=== PATIENT | female | born 1945 | race Caucasian/White ===

== ENCOUNTER 2020-11-22 11:02 | Observation (INO) | payer OTHER ==
--- NOTE | 2020-11-22 11:57 | RAD REPORT ---
EXAM DESCRIPTION: RAD - Chest Single View - 11/22/2020 11:42 am CLINICAL HISTORY: CHEST PAIN COMPARISON: September 2012 TECHNIQUE: AP portable chest image was obtained 11/22/2020 11:42 am . FINDINGS: No focal lung parenchymal process. No failure or volume overload. Interstitial pattern mat ches comparison. Heart and vasculature are normal. No measurable pleural effusion and no pneumothorax . No acute bony abnormality seen. No acute aortic findings suspected. IMPRESSION: No acute cardiopulmonary process. No significant change from comparison study.
[2020-11-22 11:59] LABS: Absolute Lymphocytes (CBC) 1.6 K/uL (0.7-4.9); Basophils % 1.1 % (0-1.3); Hematocrit 43.1 % (36.0-45.0); Lymphocytes % 19.4 % (15.3-44.8); MPV 8.8 fL (7.6-11.3); RBC Red Blood Cell Count 4.86 M/uL (3.86-4.86)
[2020-11-22 12:04] LABS: Protime INR 0.95
[2020-11-22 12:08] LABS: ALT/SGPT 32 U/L (12-78); AST/SGOT 24 U/L (15-37); Albumin 3.8 g/dL (3.4-5.0); Alkaline Phosphatase 93 U/L (45-117); BUN Blood Urea Nitrogen 18 mg/dL (7-18); Bicarbonate 30 mmol/L (21-32); Bilirubin Direct 0.2 mg/dL (0-0.2); Bilirubin Total 0.6 mg/dL (0.2-1.0); Glucose Level 134 mg/dL (74-106); Magnesium 1.5 mg/dL (1.8-2.4); NT PRO-BNP 50 pg/mL (<450); Protein, Total 7.6 g/dL (6.4-8.2); Sodium Level 142 mmol/L (136-145); Troponin (Emerg Dept Use Only) < 0.02 ng/mL (0.0-0.045)
--- NOTE | 2020-11-22 12:52 | RAD REPORT ---
EXAM DESCRIPTION: CT - Chest For Pe Angio - 11/22/2020 12:40 pm CLINICAL HISTORY: sob COMPARISON: November 22, 2020 chest x-ray TECHNIQUE: Dynamically enhanced axial 3 mm thick images of the chest were obtained during administra tion of <100> mL Isovue 370 IV contrast. Coronal and oblique reconstruction images were generated and reviewed. Exam utilizes a protocol for optimal evaluation of pulmonary arterial tree. Maximum intensity projections 3D imaging was utilized All CT scans are performed using dose optimization technique as appropriate and may include automated exposure control or mA/KV adjustment according to patient size. FINDINGS: A pulmonary embolus is not seen. A thoracic aortic aneurysm is not noted. A pleural effusion is not seen. A pericardial effusion is not seen. Mild bilateral ground-glass opacities indicative of a mild alveolitis IMPRESSION: Negative for a pulmonary embolism. Mild bilateral ground-glass opacities indicative of a mild alveolitis
--- NOTE | 2020-11-22 17:52 | ER ---
Nurse's Notes [facility] Name: Carlene Padilla Age: 75 yrs Sex: Female : 1945 Arrival Date: 11/22/2020 Time: 11:03 Bed 19 Private MD: Trenton Jo T; Adalberto Cadena Diagnosis: Tachycardia, unspecified;Dyspnea;Respiratory failure, unspecified with hypoxia-88%;Tachypnea, not elsewhere classified Presentation: 11/22 11:10 Chief complaint: Patient states: i had a [address] francois i was having tw2 some pain in my right arm about a month ago, so i wrote that off, and my o2 sat was low in their office and he didn't like my ekg said it wasn't normal, and i have been having a rapid hr, we talked about rapid breathing and i do feel sob. Coronavirus screen: At this time, the client does not indicate any symptoms associated with coronavirus-19. Ebola Screen: Patient denies travel to an Ebola-affected area in the 21 days before illness onset. Initial Sepsis Screen: Does the patient meet any 2 criteria? HR > 90 bpm. No. Patient's initial sepsis screen is negative. Does the patient have a suspected source of infection? No. Patient's initial sepsis screen is negative. Risk Assessment: Do you want to hurt yourself or someone else? Patient reports no desire to harm self or others. Onset of symptoms was November 22, 2020. 11:10 Method Of Arrival: Ambulatory tw2 11:10 Acuity: ZOHRA 2 tw2 Triage Assessment: 11:14 General: Appears in no apparent distress. Behavior is calm, cooperative, appropriate tw2 for age. Pain: Denies pain. Historical: - Allergies: 11:14 codeine sulfate; tw2 11:14 Naprosyn; tw2 11:14 Compazine; tw2 - Home Meds: 11:14 losartan-hydrochlorothiazide 100-12.5 mg oral tab 1 tab once daily [Active]; tw2 12:48 levothyroxine 50 mcg tab 1 tab once daily [Active]; metformin 750 mg Oral Tb24 1 tab tw2 once daily [Active]; Symbicort 80-4.5 mcg/actuation inhalation HFAA 2 puffs 2 times per day [Active]; omeprazole 20 mg Oral cpDR 1 cap once daily [Active]; Vesicare 10 mg oral tab 1 tab once daily [Active]; escitalopram oxalate 20 mg oral tab 1 tab once daily [Active]; aspirin 81 mg Oral TbEC 1 tab once daily [Active]; simvastatin 40 mg Oral tab 1 tab once daily [Active]; Myrbetriq 25 mg oral Tb24 1 tab once daily [Active]; One-A-Day Womens Formula 18 mg iron-400 mcg-500 mg Ca oral tab [Active]; Lumigan 0.01 % ophthalmic drop [Active]; - PMHx: 12:48 Hyperlipidemia; Diabetes - NIDDM; Hypertension; tw2 - Immunization history:: Adult Immunizations. - Social history:: Smoking status: Patient denies any tobacco usage or history of. Screenin:50 Abuse screen: Denies threats or abuse. Nutritional screening: No deficits noted. tw2 Tuberculosis screening: No symptoms or risk factors identified. Fall Risk None identified. Assessment: 11:20 General: Appears in no apparent distress. comfortable, Behavior is calm, cooperative, rb3 Denies fever. Pain: Denies pain. Neuro: Level of Consciousness is awake, alert, obeys commands, Oriented to person, place, time, situation. Cardiovascular: Capillary refill < 3 seconds Patient's skin is warm and dry. Cardiovascular: Reports shortness of breath, increased heart rate. Respiratory: Reports shortness of breath at rest Airway is patent Respiratory effort is even, unlabored, Respiratory pattern is regular, symmetrical. GI: No signs and/or symptoms were reported involving the gastrointestinal system. : No deficits noted. Musculoskeletal: Range of motion: intact in all extremities. 12:19 Reassessment: Patient appears in no apparent distress at this time. No changes from rb3 previously documented assessment. 13:18 Reassessment: Patient appears in no apparent distress at this time. Patient and/or rb3 family updated on plan of care and expected duration. Pain level reassessed. Patient is alert, oriented x 3, equal unlabored respirations, skin warm/dry/pink. 13:42 Reassessment: Pt. reports that she forgot to tell Dr. Patel that she has been getting rb3 lightheaded when she stands up, it happened last night. I performed orthostatic blood pressures on her and notified Dr. Patel. 14:28 Reassessment: Patient appears in no apparent distress at this time. Patient and/or rb3 family updated on plan of care and expected duration. Pain level reassessed. Patient is alert, oriented x 3, equal unlabored respirations, skin warm/dry/pink. 15:14 Reassessment: Patient appears in no apparent distress at this time. No changes from rb3 previously documented assessment. 16:00 Reassessment: Patient appears in no apparent distress at this time. Patient and/or rb3 family updated on plan of care and expected duration. Pain level reassessed. Patient is alert, oriented x 3, equal unlabored respirations, skin warm/dry/pink. 16:42 Reassessment: Ambulated pt. on room air, P 92, 24, O2 sat was 90% while walking. When rb3 she returned to the room, O2 sat went back up to 93-94% RA, R 22, P 91 while sitting in the bed. 17:40 Reassessment: Patient appears in no apparent distress at this time. rb3 17:40 Reassessment: Patient and/or family updated on plan of care and expected duration. Pain rb3 level reassessed. Patient is alert, oriented x 3, equal unlabored respirations, skin warm/dry/pink. Respiratory: Denies shortness of breath. 18:39 Reassessment: Patient appears in no apparent distress at this time. No changes from rb3 previously documented assessment. 20:00 General: Appears in no apparent distress. comfortable, Behavior is calm, cooperative. sf Pain: Denies pain. Neuro: Level of Consciousness is awake, alert, obeys commands, Oriented to person, place, time, situation. Cardiovascular: Reports shortness of breath, Patient's skin is warm and dry. Respiratory: Reports shortness of breath Airway is patent Respiratory effort is even, unlabored, Respiratory pattern is regular, symmetrical. 20:03 Reassessment: Called Renetta in lab to add T4 and TSH orders. sf Vital Signs: 11:10 BP 127 / 110; Pulse 129; Resp 20; Temp 97.8; Pulse Ox 95% on R/A; Weight 71.67 kg (R); tw2 Height 5 ft. 4 in. (162.56 cm); 12:00 BP 129 / 80; Pulse 109; Resp 14; Pulse Ox 94% on R/A; rb3 13:37 BP 140 / 79 Supine; Pulse 108; Resp 15; Pulse Ox 90% ; rb3 13:39 BP 148 / 87 Sitting; Pulse 108; Resp 14; Pulse Ox 91% on R/A; rb3 13:42 BP 138 / 95 Standing; Pulse 114; Resp 15; Pulse Ox 88% ; rb3 14:30 BP 146 / 85; Pulse 99; Resp 22; Pulse Ox 91% on R/A; rb3 15:30 BP 145 / 84; Pulse 93; Resp 15; Pulse Ox 97% on 2 lpm NC; rb3 16:30 BP 150 / 92; Pulse 92; Resp 24; Pulse Ox 98% on 2 lpm NC; rb3 17:30 BP 137 / 84; Pulse 102; Resp 21; Pulse Ox 94% on R/A; rb3 19:00 BP 150 / 91; Pulse 95; Resp 18; Pulse Ox 91% ; Pain 10/10; sf 20:30 BP 152 / 86; Pulse 111; Resp 18; Pulse Ox 92% ; sf 11:10 Body Mass Index 27.12 (71.67 kg, 162.56 cm) tw2 11:10 "i took juani D for the congestion about 1 hour ago" tw2 14:30 Put the pt. on 2 L NC. rb3 17:30 pt. denies shortness of breath at this time rb3 ED Course: 11:03 Patient arrived in ED. as 11:04 Trenton Jo MD is Private Physician. as 11:04 Adalberto Cadena MD is Private Physician. as 11:13 Triage completed. tw2 11:14 Arm band placed on. tw2 11:15 Placed in gown. Bed in low position. Call light in reach. tw2 11:23 Karen Pérez, BRODERICK is Primary Nurse. rb3 11:25 Jose Elias Patel MD is Attending Physician. kdr 11:35 Missed attempt(s): 22 gauge in right forearm. antecubital area. kj1 11:35 Initial lab(s) drawn, by ED staff, sent to lab. kj1 11:42 XRAY Chest (1 view) In Process Unspecified. EDMS 12:13 Inserted saline lock: 22 gauge in left forearm, using aseptic technique. ,using aseptic rb3 technique. IV inserted by Gregory, Nurse Instructor. 12:40 CT Chest For PE Angio In Process Unspecified. EDMS 17:50 Charly Todd is Hospitalizing Provider. kdr 21:08 No provider procedures requiring assistance completed. Patient admitted, IV remains in sf place. Administered Medications: 17:20 Drug: Magnesium Sulfate 2 grams Route: IVPB; Infused Over: 2 hrs; Site: left forearm; rb3 21:04 Follow up: IV Status: Completed infusion; IV Intake: 100ml sf 21:04 Follow up: Response: No adverse reaction sf Intake: 21:04 IV: 100ml; Total: 100ml. sf Outcome: 17:52 Decision to Hospitalize by Provider. kdr 21:16 Admitted to Tele accompanied by tech, via wheelchair, room 423, with oxygen, Report sf called to BRODERICK Parson 21:16 Condition: stable 21:16 Instructed on the need for admit. 21:52 Patient left the ED. sf Signatures: Dispatcher [employer] EDMS Jose Elias Patel MD MD kdr Adenike Campos Tara, RN RN maegan2 Goldie Mcfarlane kj1 Karen Pérez, BRODERICK RN rb3 Cristi Cali RN RN sf Corrections: (The following items were deleted from the chart) 11:46 11:46 Initial lab(s) drawn, by ED staff, sent to lab. kj1 kj1 13:47 13:37 BP 140 / 79 Supine; Pulse 108bpm; Pulse Ox 90%; rb3 rb3 13:47 13:39 BP 148 / 87; Pulse 108bpm; Pulse Ox 91% RA; rb3 rb3 13:51 13:39 BP 148 / 87; Pulse 108bpm; Resp 14bpm; Pulse Ox 91% RA; rb3 rb3 13:51 13:42 BP 138 / 95; Pulse 114bpm; Resp 15bpm; Pulse Ox 88%; rb3 rb3 15:15 14:30 BP 146 / 85; Pulse 99bpm; Resp 22bpm; Pulse Ox 91% RA; rb3 rb3
--- NOTE | 2020-11-22 17:52 | EDPHYS ---
Physician Documentation [facility] Name: Carlene Padilla Age: 75 yrs Sex: Female : 1945 Arrival Date: 11/22/2020 Time: 11:03 Bed 19 Private MD: Trenton Jo T; Adalberto Cadena ED Physician Jose Elias Patel HPI: 11/22 17:58 This 75 yrs old Female presents to ER via Ambulatory with complaints of kdr abnormal ekg. 17:58 The patient presents with a history of irregular heart beat, heart racing. Context: The kdr symptoms occur at rest, with light activity, without known cause. Onset: The symptoms/episode began/occurred gradually, at an unknown time. Duration: The patient or guardian reports multiple episodes, that are intermittent, that wax and wane, with no pattern. Modifying factors: The symptoms are aggravated by light activity. Associated signs and symptoms: Pertinent positives: nausea, SOB, Hypoxia. Severity of symptoms: At their worst the symptoms were mild moderate today, in the emergency department the symptoms have improved mildly. The patient has experienced similar episodes in the past, multiple times, but today's symptoms are worse. The patient has been recently seen by a physician: sent from Dr. Hernandez office. Historical: - Allergies: 11:14 codeine sulfate; tw2 11:14 Naprosyn; tw2 11:14 Compazine; tw2 - Home Meds: 11:14 losartan-hydrochlorothiazide 100-12.5 mg oral tab 1 tab once daily [Active]; tw2 12:48 levothyroxine 50 mcg tab 1 tab once daily [Active]; metformin 750 mg Oral Tb24 1 tab tw2 once daily [Active]; Symbicort 80-4.5 mcg/actuation inhalation HFAA 2 puffs 2 times per day [Active]; omeprazole 20 mg Oral cpDR 1 cap once daily [Active]; Vesicare 10 mg oral tab 1 tab once daily [Active]; escitalopram oxalate 20 mg oral tab 1 tab once daily [Active]; aspirin 81 mg Oral TbEC 1 tab once daily [Active]; simvastatin 40 mg Oral tab 1 tab once daily [Active]; Myrbetriq 25 mg oral Tb24 1 tab once daily [Active]; One-A-Day Womens Formula 18 mg iron-400 mcg-500 mg Ca oral tab [Active]; Lumigan 0.01 % ophthalmic drop [Active]; - PMHx: 12:48 Hyperlipidemia; Diabetes - NIDDM; Hypertension; tw2 - Immunization history:: Adult Immunizations. - Social history:: Smoking status: Patient denies any tobacco usage or history of. ROS: 11/23 16:55 Constitutional: Negative for fever, chills, and weight loss, Eyes: Negative for injury, kdr pain, redness, and discharge, Neck: Negative for injury, pain, and swelling, Respiratory: Negative for shortness of breath, cough, wheezing, and pleuritic chest pain, Abdomen/GI: Negative for abdominal pain, nausea, vomiting, diarrhea, and constipation, Back: Negative for injury and pain, : Negative for injury, bleeding, discharge, and swelling, MS/Extremity: Negative for injury and deformity, Skin: Negative for injury, rash, and discoloration, Neuro: Negative for headache, weakness, numbness, tingling, and seizure activity. Psych: Negative for depression, anxiety, suicide ideation, homicidal ideation, and hallucinations, Allergy/Immunology: Negative for hives, rash, and allergies, Endocrine: Negative for neck swelling, polydipsia, polyuria, polyphagia, and marked weight changes, Hematologic/Lymphatic: Negative for swollen nodes, abnormal bleeding, and unusual bruising. Cardiovascular: Positive for chest pain, palpitations. Exam: 11/22 11:40 ECG was reviewed by the Attending Physician. kdr 11/23 16:55 Constitutional: This is a well developed, well nourished patient who is awake, alert, kdr and in no acute distress. Head/Face: Normocephalic, atraumatic. Neck: Trachea midline, no thyromegaly or masses palpated, and no cervical lymphadenopathy. Supple, full range of motion without nuchal rigidity, or vertebral point tenderness. No Meningismus. Chest/axilla: Normal chest wall appearance and motion. Nontender with no deformity. No lesions are appreciated. Respiratory: Lungs have equal breath sounds bilaterally, clear to auscultation and percussion. No rales, rhonchi or wheezes noted. No increased work of breathing, no retractions or nasal flaring. Abdomen/GI: Soft, non-tender, with normal bowel sounds. No distension or tympany. No guarding or rebound. No evidence of tenderness throughout. Back: No spinal tenderness. No costovertebral tenderness. Full range of motion. Skin: Warm, dry with normal turgor. Normal color with no rashes, no lesions, and no evidence of cellulitis. MS/ Extremity: Pulses equal, no cyanosis. Neurovascular intact. Full, normal range of motion. Neuro: Awake and alert, GCS 15, oriented to person, place, time, and situation. Cranial nerves II-XII grossly intact. Motor strength 5/5 in all extremities. Sensory grossly intact. Cerebellar exam normal. Normal gait. Psych: Awake, alert, with orientation to person, place and time. Behavior, mood, and affect are within normal limits. Cardiovascular: Rate: tachycardic, Rhythm: irregular. Vital Signs: 11/22 11:10 BP 127 / 110; Pulse 129; Resp 20; Temp 97.8; Pulse Ox 95% on R/A; Weight 71.67 kg (R); tw2 Height 5 ft. 4 in. (162.56 cm); 12:00 BP 129 / 80; Pulse 109; Resp 14; Pulse Ox 94% on R/A; rb3 13:37 BP 140 / 79 Supine; Pulse 108; Resp 15; Pulse Ox 90% ; rb3 13:39 BP 148 / 87 Sitting; Pulse 108; Resp 14; Pulse Ox 91% on R/A; rb3 13:42 BP 138 / 95 Standing; Pulse 114; Resp 15; Pulse Ox 88% ; rb3 14:30 BP 146 / 85; Pulse 99; Resp 22; Pulse Ox 91% on R/A; rb3 15:30 BP 145 / 84; Pulse 93; Resp 15; Pulse Ox 97% on 2 lpm NC; rb3 16:30 BP 150 / 92; Pulse 92; Resp 24; Pulse Ox 98% on 2 lpm NC; rb3 17:30 BP 137 / 84; Pulse 102; Resp 21; Pulse Ox 94% on R/A; rb3 19:00 BP 150 / 91; Pulse 95; Resp 18; Pulse Ox 91% ; Pain 10/10; sf 20:30 BP 152 / 86; Pulse 111; Resp 18; Pulse Ox 92% ; sf 11:10 Body Mass Index 27.12 (71.67 kg, 162.56 cm) tw2 11:10 "i took juani D for the congestion about 1 hour ago" tw2 14:30 Put the pt. on 2 L NC. rb3 17:30 pt. denies shortness of breath at this time rb3 MDM: 17:52 Patient medically screened. [facility] 11/23 16:57 Data reviewed: vital signs, nurses notes, lab test result(s), EKG, radiologic studies. kdr Counseling: I had a detailed discussion with the patient and/or guardian regarding: the historical points, exam findings, and any diagnostic results supporting the discharge/admit diagnosis, lab results, radiology results, the need for further work-up and treatment in the hospital. 11/22 11:26 Order name: Basic Metabolic Panel; Complete Time: 14: [facility] 11/22 11:26 Order name: CBC with Diff; Complete Time: [facility] 11/22 11:26 Order name: LFT's; Complete Time: [facility] 11/22 11:26 Order name: Magnesium; Complete Time: : [facility] 11/22 11:26 Order name: NT PRO-BNP; Complete Time: : [facility] 11/22 11:26 Order name: PT-INR; Complete Time: 14: [facility] 11/22 11:26 Order name: Troponin (emerg Dept Use Only); Complete Time: 14: [facility] 11/22 11:26 Order name: XRAY Chest (1 view); Complete Time: : [facility] 11/22 11:26 Order name: DD; Complete Time: : [facility] 11/22 16:23 Order name: Troponin (emerg Dept Use Only); Complete Time: 17:49 [facility] 11/22 19:41 Order name: COVID-19 : Document "Date of Symptom Onset" if Symptomatic. tt3 11/22 19:44 Order name: TSH 8 11/22 19:44 Order name: T4 Free [facility] 11/22 11:18 Order name: EKG - Nurse/Tech; Complete Time: 11:59 em1 11/22 11:18 Order name: EKG; Complete Time: 11:19 em1 11/22 11:26 Order name: Cardiac monitoring; Complete Time: 15:22 [facility] 11/22 11:26 Order name: IV Saline Lock; Complete Time: 11:59 [facility] 11/22 11:26 Order name: Labs collected and sent; Complete Time: 11:59 [facility] 11/22 11:26 Order name: O2 Per Protocol; Complete Time: 11:48 [facility] 11/22 11:26 Order name: O2 Sat Monitoring; Complete Time: 11:48 [facility] 11/22 11:27 Order name: CT Chest For PE Angio; Complete Time: 14:31 [facility] EC/25 11:40 Rate is 106 beats/min. Rhythm is regular, Sinus tachycardia with No ectopy. QRS [place] is kdr Normal. [place] interval is normal. QRS interval is normal. QT interval is normal. Clinical impression: NSR w/ Non-specific ST/T Changes. Administered Medications: 17:20 Drug: Magnesium Sulfate 2 grams Route: IVPB; Infused Over: 2 hrs; Site: left forearm; rb3 21:04 Follow up: IV Status: Completed infusion; IV Intake: 100ml sf 21:04 Follow up: Response: No adverse reaction sf Disposition: 11/22/20 17:52 Hospitalization ordered by Charly Todd for Observation. Preliminary diagnosis are Tachycardia, unspecified, Dyspnea, Respiratory failure, unspecified with hypoxia - 88%, Tachypnea, not elsewhere classified. - Bed requested for Telemetry/MedSurg (observation). - Status is Observation. sf - Condition is Fair. - Problem is new. - Symptoms have improved. Signatures: Dispatcher [employer] EDID Cristi Subramanian, RN RN sg Jose Elias Patel MD MD kdr Karson Campos em1 Mariano Trammell PA PA jr8 Delmy Hurst RN RN tw2 Karen Pérez RN RN rb3 Cristi Cali, BRODERICK RN sf Corrections: (The following items were deleted from the chart) 20:04 19:42 CORONAVIRUS ordered. EDID EDID 20:22 17:52 Hospitalization Ordered by Charly Todd for Observation. Preliminary diagnosis sg is Tachycardia, unspecified; Dyspnea; Respiratory failure, unspecified with hypoxia - 88%; Tachypnea, not elsewhere classified. Bed requested for Telemetry/MedSurg (observation). Status is Observation. Condition is Fair. Problem is new. Symptoms have improved. [facility] 21:52 20:22 11/22/2020 17:52 Hospitalization Ordered by Charly Todd for Observation. sf Preliminary diagnosis is Tachycardia, unspecified; Dyspnea; Respiratory failure, unspecified with hypoxia - 88%; Tachypnea, not elsewhere classified. Bed requested for Telemetry/MedSurg (observation). Status is Observation. Condition is Fair. Problem is new. Symptoms have improved. sg
[2020-11-22] MEDS ORDERED: Magnesium Sulfate 2gm IVPB 2 G/50 ML BAG IV ONE (19:29)
[2020-11-22 20:30] LABS: Thyroid Stimulating Hormone 1.33 uIU/mL (0.360-3.740)
[2020-11-22 22:08] VITALS: BMI 27.0
[2020-11-22] MEDS ORDERED: ACETAMINOPHEN 500 MG TAB PO PRN (22:35)
[2020-11-22] MEDS ORDERED: ONDANSETRON 4 MG/2 ML VIAL IV PRN (22:35)
[2020-11-23] MEDS: METHYLPREDNISOLONE 40 MG INJ IV SCH ×2 (00:39→08:09)
[2020-11-23] MEDS: ALBUTEROL 2.5 MG/3 ML NEB SOL NEB SCH ×2 (01:38→07:37)
--- NOTE | 2020-11-23 02:35 | P.HP ---
Certification for Inpatient Patient admitted to: Inpatient With expected LOS: >2 Midnights Patient will require the following post-hospital care: None Practitioner: I am a practitioner with admitting privileges, knowledge of patient current condition, hospital course, and medical plan of care. Services: Services provided to patient in accordance with Admission requirements found in Title 42 Section 412.3 of the Code of Federal Regulations <Dayton Trammell - Last Filed: 11/23/20 02:30> Patient History Date of Service: 11/23/20 Primary Care Provider: Sandro Reason for admission: Tachycardia, Hypoxia, HF History of Present Illness: This is a 75-year-old female with a history of hyperlipidemia, non-insulin- dependent diabetes mellitus, hypertension that presented to the emergency room after visiting with her restoration ecologist today for persistent bouts of palpitations with dizziness that has started about 2 months ago. 1 restoration ecologist evaluated her today patient was tachycardic with low oxygen saturation. Patient stated that she has had on off wheezing and dyspnea on exertion. Patient stated that she does see a take off man for asthma related history. Patient was worked up in the emergency room and found to have a sodium 142, potassium 4.0, chloride 106, bicarb 30, BUN 18, creatinine 0.77, glucose 134. Patient had a white cell count of 8.2, hemoglobin 14, hematocrit 43, platelet 306. Patient had normal thyroid studies and was SARs negative. Magnesium was 1.5 which was placed in the emergency room. BNP and troponin were negative. Chest x-ray unremarkable and CT showed only mild alveolitis without pulmonary embolism. Patient still had mild hypoxia in the emergency room. Upon assessment from medicine teen patient had bibasilar crackles. Patient admitted for further evaluation at that time. Home medications list reviewed: Yes - Past Medical/Surgical History Has patient received pneumonia vaccine in the past: Yes Diabetic: Yes -: Hyperlipidemia -: Hypertension -: Diabetes-NIDDM -: Thyroid Disease -: GERD -: Hysterectomy -: Right Ankle Surgery -: Bilateral heel surgery -: Appendectomy -: Cholecystectomy - Family History Father -: Hypertension Mother -: Hypertension, Cancer Notes: Skin Cancer - Social History Smoking Status: Former smoker Smoking therapy provided: No Alcohol use: No CD- Drugs: No Caffeine use: No Place of Residence: Home <Felisa Trammellshua - Last Filed: 11/23/20 02:30> Date of Service: 11/23/20 <allen church - Last Filed: 11/23/20 14:26> Allergies codeine Allergy (Verified 11/22/20 22:04) Shortness of breath naproxen [From Naprosyn] Allergy (Verified 11/22/20 22:04) Hives prochlorperazine [From Compazine] Allergy (Verified 11/22/20 22:04) Itching/Hives/Rash Sulfa (Sulfonamide Antibiotics) Allergy (Verified 11/22/20 22:04) Shortness of breath Home Medications: Aspirin [Aspirin EC 81 MG] 81 mg PO DAILY 11/23/20 Bimatoprost [Lumigan Opthalmic Drops*] 0.01 % PO BID 11/23/20 Budesonide/Formoterol Fumarate [Symbicort 80-4.5 Mcg Inhaler] 2 inhaler PO DAILY 11/23/20 Escitalopram Oxalate 20 mg PO DAILY 11/23/20 Levothyroxine [Synthroid*] 50 mcg PO [id number] 11/23/20 Losartan/Hydrochlorothiazide [Losartan-Hctz 100-12.5 mg Tab] 100 mg PO DAILY 11/23/20 Metformin HCl [Metformin HCl ER] 750 mg PO DAILY 11/23/20 Mirabegron [Myrbetriq] 25 mg PO DAILY 11/23/20 Multivit with Calcium,Iron,Min [One Daily Women's] 500 mg PO DAILY 11/23/20 Omeprazole 20 mg PO DAILY 11/23/20 Simvastatin 40 mg PO DAILY 11/23/20 Solifenacin Succinate [Vesicare] 10 mg PO DAILY 11/23/20 Review of Systems General: Unremarkable Eyes: Unremarkable ENT: Unremarkable Respiratory: Shortness of Breath, SOB with Excertion Cardiovascular: Palpitations Gastrointestinal: Unremarkable Genitourinary: Unremarkable Musculoskeletal: Unremarkable Integumentary: Unremarkable Neurological: As per HPI <Dayton Trammell - Last Filed: 11/23/20 02:30> Physical Examination - Vital Signs Temperature: 97.2 F Blood Pressure: 134/82 Pulse: 113 Respirations: 19 Pulse Ox (%): 91 - Physical Exam General: Alert, In no apparent distress, Oriented x3, Cooperative HEENT: PERRLA, Mucous membr. moist/pink, EOMI Neck: Supple, 2+ carotid pulse no bruit, JVD not distended, No Thyromegaly Respiratory: Crackles/rales, Inspiratory wheezes Cardiovascular: No edema, Normal S1 S2, No gallops, No rubs, No murmurs, Irregular heart rate/rhythm (Tachycardia) Capillary refill: <2 Seconds Gastrointestinal: Normal bowel sounds, Soft and benign, Non-distended, No ascites, No tenderness, No masses, No rebound, No guarding Musculoskeletal: No clubbing, No swelling, No contractures, No erythema, No tenderness, No warmth Integumentary: No rashes, No breakdown, No significant lesion, No tenderness/swelling, No erythema, No warmth, No cyanosis Neurological: Normal speech, Normal strength at 5/5 x4 extr, Normal tone, Sensation intact, Cranial nerves 3-12 intact, Normal affect Lymphatics: No axilla or inguinal lymphadenopathy - Studies Laboratory Data (last 24 hrs) 11/22/20 11:32: PT 10.9, INR 0.95 11/22/20 11:32: WBC 8.20, Hgb 14.0, Hct 43.1, Plt Count 306 11/22/20 11:32: Sodium 142, Potassium 4.0, BUN 18, Creatinine 0.77, Glucose 134 H, Magnesium 1.5 L, Total Bilirubin 0.6, AST 24, ALT 32, Alkaline Phosphatase 93 <Dayton Trammell - Last Filed: 11/23/20 02:30> Assessment and Plan - Problems (Diagnosis) (1) Non-insulin dependent diabetes mellitus Status: Chronic Plan: Patient had blood glucose of 134 in emergency room. We will continue to monitor this. We will supplement with insulin as needed and be put on sliding scale if glucose increases over 180 milligrams/deciliter. Patient we placed on ADA diet (2) Hypertension Status: Chronic Plan: We will continue to monitor patient's blood pressure months other vital signs. We will treat blood pressure for anything systolic greater than 160 or diastolic greater than 90. Qualifiers: Hypertension type: essential hypertension Qualified Code(s): I10 - Essential (primary) hypertension (3) Hyperlipidemia Status: Chronic Qualifiers: Hyperlipidemia type: moderate mixed hyperlipidemia not requiring statin therapy Qualified Code(s): E78.2 - Mixed hyperlipidemia (4) Tachycardia, unspecified Status: Acute Plan: Patient has unspecified tachycardia. No presentation of atrial fib or flutter present. No bouts of SVT. Thyroid studies were unremarkable. Cardiac enzymes, BNP, chest x-ray, CT PE negative. Patient did have mild hypomagnesemia which will be replaced but unlikely that this is what is causing the problem. Patient had bibasilar crackles upon auscultation. Concerned that there may be heart failure present which could be contributing to the palpitations and tachycardia. Patient will and cardiology will be consulted for further evaluation. (5) Hypoxia Status: Acute Plan: Patient had wheezing present with crackles and mild hypoxia. Patient was placed on oxygen and will be given Xopenex, Solu-Medrol. Will continue to monitor patient's respiratory status and pulse oximetry. Will escalate as needed. (6) Heart failure Status: Acute Plan: Patient has unspecified tachycardia. No presentation of atrial fib or flutter present. No bouts of SVT. Thyroid studies were unremarkable. Cardiac enzymes, BNP, chest x-ray, CT PE negative. Patient did have mild hypomagnesemia which will be replaced but unlikely that this is what is causing the problem. Patient had bibasilar crackles upon auscultation. Concerned that there may be heart failure present which could be contributing to the palpitations and tachycardia. Patient will and cardiology will be consulted for further evaluation. Qualifiers: Heart failure type: unspecified Heart failure chronicity: acute Qualified Code(s): I50.9 - Heart failure, unspecified Discharge Plan: Home Plan to discharge in: 48 Hours - Advance Directives Does patient have a Living Will: Yes Does patient have a Durable POA for Healthcare: Yes - Code Status/Comfort Care Code Status Assessed: No Critical Care: No Time Spent Managing Pts Care (In Minutes): 70 <Dayton Trammell - Last Filed: 11/23/20 02:30> Physician Review: Patient Assessed, Agree with Above Assessment and Plan Physician Review Additional Text: Sinus tachycardia. Hypothyroidism Plan: Patient is on thyroid supplementation. Telemetry Check thyroid function Cardiology Consult Echocardiogram <allen church - Last Filed: 11/23/20 14:26>
[2020-11-23 04:38] LABS: Absolute Lymphocytes (CBC) 0.6 K/uL (0.7-4.9); Basophils % 0.4 % (0-1.3); Hematocrit 42.9 % (36.0-45.0); Lymphocytes % 6.1 % (15.3-44.8); MPV 8.5 fL (7.6-11.3)
[2020-11-23 05:00] LABS: Magnesium 1.8 mg/dL (1.8-2.4); Potassium 4.3 mmol/L (3.5-5.1)
[2020-11-23 05:26] LABS: Blood Morphology Comment NOT SEEN (NOT SEEN); Platelet Estimate ADEQ
[2020-11-23] MEDS ORDERED: FUROSEMIDE 20 MG/ 2ML VIAL IV SCH (09:00)
[2020-11-23 09:16] VITALS: O2SAT 97
[2020-11-23] MEDS ORDERED: MAGNESIUM SULFATE 1 gm IVPB 1 GM/100 ML BAG IV ONE (10:00)
[2020-11-23 12:03] VITALS: BP 149/86; TEMP 97.2
--- NOTE | 2020-11-23 12:55 | P.DS ---
Admission Date: 11/22/20 Discharge Date: 11/23/20 Primary Care Provider: Sandro Disposition: ROUTINE DISCHARGE Discharge Condition: FAIR Reason for Admission: Tachycardia, Hypoxia, HF Consultations: Cardiology - Problems (1) Tachycardia, unspecified Status: Acute (2) Hyperlipidemia Status: Chronic Qualifiers: Hyperlipidemia type: moderate mixed hyperlipidemia not requiring statin therapy Qualified Code(s): E78.2 - Mixed hyperlipidemia (3) Hypertension Status: Chronic Qualifiers: Hypertension type: essential hypertension Qualified Code(s): I10 - Essenti al (primary) hypertension (4) Non-insulin dependent diabetes mellitus Status: Chronic Brief History of Present Illness: 75-year-old woman with a history of hyperlipidemia, non-insulin dependent diabetes, hypertension presented to the emergency department after visiting her sales and service representative for persistent bouts of palpitation and dizziness. Patient was evaluated by her sales and service representative and noted to have tachycardia and low oxygen saturation. She was therefore referred to the emergency department. She was mildly hypoxic in the ED. EKG demonstrated sinus tachycardia. CTA thorax was performed which was negative for pulmonary embolism but did show some mild alveolar opacities. His initial troponin negative Patient was hospitalized for further management. Hospital Course: Troponin trended negative. Echocardiogram was performed and the result is pending. Patient seen by sales and service representative-Dr. Treviño cleared patient for discharge and informed patient to follow with her in the office further evaluation. Patient's thyroid function test results were within normal range. She also tolerated room air with oxygen saturation ranging from 90-94%. Patient deemed clinically stable for discharge. Vital Signs/Physical Exam: Temp Pulse Resp BP Pulse Ox 97.2 F 116 H 18 149/86 H 90 L 11/23/20 12:11/23/20 12:11/23/20 12:11/23/20 12:11/23/20 12:00 General: Alert, In no apparent distress, Oriented x3 HEENT: Mucous membr. moist/pink Neck: Supple, JVD not distended Respiratory: Clear to auscultation bilaterally, Normal air movement Cardiovascular: No edema, Normal S1 S2 Gastrointestinal: Normal bowel sounds, Soft and benign, No tenderness Musculoskeletal: No erythema Integumentary: No rashes Neurological: Normal strength at 5/5 x4 extr, Cranial nerves 3-12 intact Laboratory Data at Discharge: WBC 10.40 K/uL (4.3-10.9) D 11/23/20 04:27 Hgb 13.7 g/dL (12.0-15.0) 11/23/20 04:27 Hct 42.9 % (36.0-45.0) 11/23/20 04:27 Plt Count 275 K/uL (152-406) 11/23/20 04:27 PT 10.9 SECONDS (9.5-12.5) 11/22/20 11:32 INR 0.95 11/22/20 11:32 Sodium 141 mmol/L (136-145) 11/23/20 04:27 Potassium 4.3 mmol/L (3.5-5.1) 11/23/20 04:27 BUN 18 mg/dL (7-18) 11/23/20 04:27 Creatinine 0.79 mg/dL (0.55-1.3) 11/23/20 04:27 Glucose 210 mg/dL (74-106) H 11/23/20 04:27 Magnesium 1.8 mg/dL (1.8-2.4) 11/23/20 04:27 Total Bilirubin 0.6 mg/dL (0.2-1.0) 11/22/20 11:32 AST 24 U/L (15-37) 11/22/20 11:32 ALT 32 U/L (12-78) 11/22/20 11:32 Alkaline Phosphatase 93 U/L (45-117) 11/22/20 11:32 Troponin I < 0.02 ng/mL (0.0-0.045) 11/23/20 02:01 Home Medications: Aspirin [Aspirin EC 81 MG] 81 mg PO DAILY 11/23/20 Bimatoprost [Lumigan Opthalmic Drops*] 0.01 % PO BID 11/23/20 Budesonide/Formoterol Fumarate [Symbicort 80-4.5 Mcg Inhaler] 2 inhaler PO DAILY 11/23/20 Escitalopram Oxalate 20 mg PO DAILY 11/23/20 Levothyroxine [Synthroid*] 50 mcg PO [id number] 11/23/20 Losartan/Hydrochlorothiazide [Losartan-Hctz 100-12.5 mg Tab] 100 mg PO DAILY 11/23/20 Metformin HCl [Metformin HCl ER] 750 mg PO DAILY 11/23/20 Mirabegron [Myrbetriq] 25 mg PO DAILY 11/23/20 Multivit with Calcium,Iron,Min [One Daily Women's] 500 mg PO DAILY 11/23/20 Omeprazole 20 mg PO DAILY 11/23/20 Simvastatin 40 mg PO DAILY 11/23/20 Solifenacin Succinate [Vesicare] 10 mg PO DAILY 11/23/20 Diet: AHA Activity: Ad bijal Followup: Pedro Treviño MD [ACTIVE - CAN ADMIT] - 1 Week (call to schedule appointment) Trenton Jo MD [Primary Care Provider] - (call to schedule appointment)
--- NOTE | 2020-11-23 14:13 | EKG ---
Test Date: 2020-11-22 Test Time: 11:21:59 Demurrage Man: MIGUEL MEASUREMENT RESULTS: Intervals: Rate: 106 GA: 180 QRSD: 96 QT: 342 QTc: 454 Tuttle: P: 69 GA: 180 QRS: -32 T: 103 INTERPRETIVE STATEMENTS: Sinus tachycardia Left axis deviation Possible Inferior infarct, age undetermined Cannot rule out Anterior infarct, age undetermined Abnormal ECG Compared to ECG 04/23/1994 15:17:00 Left-axis deviation now present Myocardial infarct finding now present Sinus rhythm no longer present ST (T wave) deviation no longer present Electronically Signed On 11-23-20 14:09:18 DELI ASSOCIATE by Pedro Treviño
--- NOTE | 2020-11-23 14:53 | ECHO ---
HEIGHT: 5 ft 4 in WEIGHT: 157 lb 10.72 oz DATE OF STUDY: 11/23/[address]: Dayton Trammell 2-DIMENSIONAL: YES M.MODE: YES DOPPLER: YES COLOR FLOW: YES TDS: YES PORTABLE: NO DEFINITY: NO BUBBLE STUDY: NO DIAGNOSIS: HEART FAILURE CARDIAC HISTORY: CATHERIZATION: SURGERY: PROSTHETIC VALVE: PACEMAKER: MEASUREMENTS (cm) DIASTOLIC (NORMALS) SYSTOLIC (NORMALS) IVSd 0.8 (0.6-1.2) LA Diam 3.8 (1.9-4.0) LVEF 68% LVIDd 4.2 (3.5-5.7) LVIDs 2.6 (2.0-3.5) %FS 37% LVPWd 1.0 (0.6-1.2) Ao Diam 2.6 (2.0-3.7) 2 DIMENSIONAL ASSESSMENT: RIGHT ATRIUM: NORMAL LEFT ATRIUM: NORMAL RIGHT VENTRICLE: NORMAL LEFT VENTRICLE: NORMAL TRICUSPID VALVE: NORMAL MITRAL VALVE: NORMAL PULMONIC VALVE: NORMAL AORTIC VALVE: NORMAL PERICARDIAL EFFUSION: NONE AORTIC ROOT: NORMAL LEFT VENTRICULAR WALL MOTION: NORMAL. DOPPLER/COLOR FLOW: NORMAL. COMMENTS: TRACE OF TRICUSPID REGURGITATION - NORMAL RIGHT VENTRICULAR SYSTOLIC PRESSURE. NORMAL LEFT VENTRICULAR SIZE AND FUNCTION. NO WALL MOTION ABNORMALITY. NO EFFUSION. TECHNOLOGIST: ROBERTO LEI
[2020-11-23] MEDS ORDERED: ENOXAPARIN 40 MG/0.4 ML SQ SCH (17:00)
--- NOTE | 2020-11-25 06:12 | CON ---
Date of Consultation: 11/23/2020 Reason For Consultation: Hypoxia and tachycardia. History Of Present Illness: Ms. Padilla is a 75-year-old woman, has a history of hypertension, COPD, hypothyroidism, gastroesophageal reflux disease, diabetes, and dyslipidemia. She saw Dr. Cadena in my office on 11/22/2020, and appeared to be hypoxic and tachycardic, and she was sent to the emergenc y room for admission for workup to rule out pulmonary embolus and pneumonia. By the time she was see n by me, she was asymptomatic. She had a normal chest x-ray, normal CT angiography, normal echo, and normal blood work. She had become asymptomatic. Allergies: CODEINE AND NAPROSYN AND SULFA. Review of Systems: Negative. Social History: Negative. Family History: Negative. Medications At Home: Aspirin, inhalers, losartan with hydrochlorothiazide, Synthroid, Prilosec, Zoco r, and metformin. Physical Examination: General: She was pleasant, no acute distress. Vital Signs: Stable, afebrile. HEENT: Negative. Neck: Supple with no bruit. Chest: Clear. Cardiac: Revealed a regular rhythm and rate. No murmurs, gallops or rubs. Abdomen: Benign. Extremities: Revealed no clubbing, cyanosis, or edema. Diagnostic Data: Were stated earlier, also included the patient had an echocardiogram by the time I saw her, which was perfectly normal. Impression And Plan: 1.Chronic obstructive pulmonary disease exacerbation. She is on Lasix, steroid, and inhalers. I do not see the need for Lasix. She is feeling back to normal. I think she can go home whenever it is okay with Dr. Todd. We will see her in the office as an outpatient. I am not so sure when Ms. Doug wright' last workup has been, but she really should be evaluated with an outpatient Lexiscan and a gaytan tid Doppler. She has many risk factors. 2.Hypertension, well controlled. 3.Diabetes. 4.Dyslipidemia. 5.Hypothyroidism. 6.Gastroesophageal reflux disease. 7.Initial hypoxia and tachycardia, most likely secondary to chronic obstructive pulmonary disease ex acerbation. She had a negative CTA for pulmonary embolus. Chest x-ray showed no pneumonia. She obv iously does not have congestive heart failure. She has a normal echo. She can go home whenever it i s okay with Dr. Todd. We will see her in the office in the next 2 to 4 weeks. TIMOTHY Voice ID: [id number] Report ID: [id number]
== END 2020-11-23 13:42 | disposition home or self-care (01) ==
LOC: ER 11:02 → INTOOBSV 21:02 → ERHOLD 21:02 → 4TH 21:21
PROVIDERS: ADMIT Internal Medicine; ATTEND Internal Medicine
DX: R09.02 Hypoxemia (principal); R00.0 Tachycardia, unspecified; I10 Essential (primary) hypertension; E11.9 Type 2 diabetes mellitus without complications; K21.9 Gastro-esophageal reflux disease without esophagitis; Z20.822 Contact with and (suspected) exposure to COVID-19; E83.42 Hypomagnesemia; E78.2 Mixed hyperlipidemia; Z87.891 Personal history of nicotine dependence; R94.31 Abnormal electrocardiogram [ECG] [EKG]; J44.1 Chronic obstructive pulmonary disease with (acute) exacerbation; E03.9 Hypothyroidism, unspecified
CPT/HCPCS: 36415; 71045; 71275; 80048; 80076; 82947; 83735; 83880; 84439; 84443; 84484; 85025; 85379; 85610; 93005; 93306; 94640; 96365; 96366; 99285; G0378; J1650; J1940; J2920; J3475; Q9967; U0003

== ENCOUNTER 2023-01-23 08:51 | Day surgery (SDC) | payer OTHER ==
[2023-01-20 11:16] LABS: Absolute Lymphocytes (CBC) 1.4 K/uL (0.7-4.9); Hematocrit 40.9 % (36.0-45.0); Lymphocytes % 17.5 % (15.3-44.8); MCV 90.4 fL (80-100); MPV 8.2 fL (7.6-11.3); RBC Red Blood Cell Count 4.52 M/uL (3.86-4.86)
[2023-01-20 11:31] LABS: Potassium 3.9 mEq/L (3.5-5.1)
--- NOTE | 2023-01-20 13:06 | RAD REPORT ---
EXAM DESCRIPTION: [facility] Lat [facility]2 Views)01/20/2023 10:57 am CLINICAL HISTORY: Pre op pending carpal tunnel release. Hypertension COMPARISON: Chest Single View dated 07/05/2022; Chest Single View dated 11/22/2020; CHEST PA AND LAT 2 VIEW dated 10/11/2012 TECHNIQUE: PA and lateral views of the chest. FINDINGS: The lungs are clear. No pneumothorax or effusion. The cardiomediastinal contours are unrem arkable. IMPRESSION: No acute cardiopulmonary process.
[2023-01-20 13:09] LABS: Protime INR 0.83
--- NOTE | 2023-01-21 04:52 | EKG ---
Test Date: 2023-01-20 Test Time: 10:40:29 Information Security Analyst: DIEGO MEASUREMENT RESULTS: Intervals: Rate: 68 [place]: 192 QRSD: 90 QT: 426 QTc: 452 Snyder: P: 67 [place]: 192 QRS: -11 T: 52 INTERPRETIVE STATEMENTS: Sinus rhythm with marked sinus arrhythmia Cannot rule out Inferior infarct, age undetermined Abnormal ECG Compared to ECG 07/05/2022 13:21:50 No significant changes Electronically Signed On 01-21-23 04:51:57 CDT by Pedro Treviño
--- NOTE | 2023-01-21 16:48 | EKG ---
Test Date: 2023-01-20 Test Time: 10:41:37 [place] Marshal: ET MEASUREMENT RESULTS: Intervals: Rate: 68 UT: 188 QRSD: 94 QT: 430 QTc: 457 [place]: P: 74 UT: 188 QRS: -9 T: 64 INTERPRETIVE STATEMENTS: Normal sinus rhythm with sinus arrhythmia Cannot rule out Inferior infarct, age undetermined Abnormal ECG Compared to ECG 01/20/2023 10:40:29 No significant changes Electronically Signed On 01-21-23 16:46:48 CDT by Adalberto Cadena
[2023-01-23] MEDS ORDERED: NA CHLORIDE 0.9% 1,000 ML ONE (09:18)
[2023-01-23] MEDS ORDERED: CEFAZOLIN SODIUM 1 GM/VIAL ONE (09:18)
[2023-01-23] MEDS ORDERED: BUPIVACAINE 0.25% PF 10 ML VIAL ONE (10:39)
[2023-01-23] MEDS ORDERED: MIDAZOLAM HCL 2 MG/2 ML INJ ONE (10:45)
[2023-01-23] MEDS ORDERED: propofoL 200 MG/20 ML VIAL IV ONE (10:54)
[2023-01-23] MEDS ORDERED: FENTANYL CITR 100 MCG/2 ML ONE (10:55)
[2023-01-23] MEDS ORDERED: LIDOCAINE 2% MPF 5 ML VIAL ONE (10:55)
--- NOTE | 2023-01-23 11:47 | P.BOP ---
Preoperative diagnosis: right carpal tunnel syndrome Postoperative diagnosis: same Primary procedure: right open carpal tunnel release Remedial Reading Teacher: NONE,NONE Estimated blood loss: 3 cc Specimen: none Findings: see dictation Anesthesia: General Complications: None Implants: none Fluids & blood products: per anesthesia record; TT: 15 mins @ 250 mmHg Transferred to: Recovery Room Condition: Good
--- NOTE | 2023-01-23 11:50 | P.OP ---
Preoperative diagnosis: right carpal tunnel syndrome Postoperative diagnosis: same Primary procedure: right open carpal tunnel release Anesthesia: general Estimated blood loss: 3 cc Specimen: none Findings: see dictation Operative Technique: Reason for Surgery: The patient had physical exam findings as well as EMG findings consistent with right carpal tunnel syndrome. I discussed with the patient at length risks and benefits associated with the procedure. They expressed understanding and elected proceed with operative treatment. Description of Procedure: After informed consent was obtained the patient was identified in the preoperative holding area. The right upper extremity was marked patient. Patient then brought back to the operating room transferred the operative table in supine fashion and placed under anesthesia. The right upper extremity was exsanguinated and the tourniquet was inflated to 250 mmHg. Approximately a 3 cm longitudinal incision was made just ulnar to the thenar crease. Dissection was then taken down to the palmar fascia which was identified. A Giddings elevator was then placed just deep to the palmar fascia to protect the median nerve at all times. A 15 blade was then used to release the palmar fascia and transverse carpal ligament leaving the Giddings elevator to protect the nerve at all times. Any remaining fascial bands were then released using a blunt tip Metzenbaum scissor. The tips were him superficially to protect the median nerve at all times. The wound was then irrigated thoroughly with normal saline. The skin was approximated using a 5-0 Prolene. Sterile dressings were applied and patient was awakened and transferred to PACU in stable condition. Postoperative plan: The patient will follow-up in 1 to 2 weeks for wound check and suture removal. They may begin to work on range of motion exercises at this time. Complications: None Implants: none Fluids & blood products: per anesthesia record Transferred to: Recovery Room Condition: Good
[2023-01-23 12:07] VITALS: O2SAT 95
[2023-01-23] MEDS ORDERED: TRAMADOL HCL 50 MG TAB ONE (12:52)
[2023-01-23 13:41] VITALS: BP 141/70; TEMP 96.9
== END 2023-01-23 13:25 | disposition home or self-care (01) ==
LOC: OR 08:51
PROVIDERS: ATTEND Orthopaedic Surgery Sports Medicine
PROC: 01N50ZZ Release Median Nerve, Open Approach (ICD-10-PCS; principal; 2023-01-23 10:00)
DX: G56.01 Carpal tunnel syndrome, right upper limb (principal); I10 Essential (primary) hypertension; J45.909 Unspecified asthma, uncomplicated; E11.9 Type 2 diabetes mellitus without complications; E03.9 Hypothyroidism, unspecified; K21.9 Gastro-esophageal reflux disease without esophagitis
CPT/HCPCS: 93005 ×2; 85025; 80048; 36415; 85610; 82947 ×2; 85730; 71046; 64721; J2704; J2001; J2250; J3010; J7030; J0690

== ENCOUNTER 2023-08-09 15:20 | Observation (INO) | payer OTHER ==
--- OUTSIDE RECORDS SUMMARY | 2023-08-09 15:58 | XMS REPORT | Continuity of Care Document ---
:1945 Author Organization [facility] t Address [address] [place] [address] [address] [place] [address] Care Team Providers Name Role Phone Trenton Jo MD Primary Care Physician [phone] Trenton Jo Attending Clinician Unavailable JHONATAN MEJIAS Attending Clinician Unavailable KWASI SALGADO Attending Clinician Unavailable CATRACHITA WILSON Attending Clinician Unavailable LYUDMILA HUANG Attending Clinician Unavailable LYUDMILA HUANG Attending Clinician Unavailable [email or web address] Attending Clinician Unavailable CHERYL RIVAS Attending Clinician Unavailable CHERYL RIVAS Attending Clinician Unavailable 1, [facility] Attending Clinician Unavailable Brian Marin MD Attending Clinician BRIAN MARIN Attending Clinician Unavailable Doctor Unassigned, [place] Attending Clinician Unavailable Val Echols APRN Attending Clinician Va Navarro RN Attending Clinician Unavailable Priscilla Rivera RN Attending Clinician Unavailable [email or web address] Admitting Clinician Unavailable Payers Payer Name Policy Type Policy Number Effective Date Expiration Date Christina engel [facility] MEDICARE [id number] 2020 ADVANTAGE 00:00:00 [facility] [id number] 2022 [facility] 00:00:00 PPO Problems Condition Condition Condition Status Onset Resolution Last Treating Co mments Source Name Details Category Date Date Treatment Clinician Date Cervical Cervical Disease Active Unive rs spondylosi spondylosi 5-10 it y of s s 00:00: [place] 00 Medical Branch Chronic Chronic Disease Active Univers pain pain 5-10 ity of disorder disorder 00:00: [place] [facility] Long-term Long-term Disease Active Uni vers current current 5-10 ity of use of use of 00:00: [place] opiate opiate 00 Medical analgesic analgesic Bran ch Diabetes Diabetes Disease Active Unive rs mellitus mellitus 4-25 ity of 00:00: [place] [facility] Branch Exercise Exercise Disease Active Unive rs hypoxemia hypoxemia 4-25 ity of 00:00: [place] [facility] Branch Heart Heart Disease Active Univers failure failure 4-25 ity of 00:00: [place] [facility] Hypoxia Hypoxia Disease Active Univers 4- ity of 00:00: [place] [facility] Feeling of Feeling of Disease Active U T incomplete incomplete -25 He alth bladder bladder 00:00: emptying emptying 00 Female Female Disease Active [facility] stress stress -25 Health incontinen incontinen 00:00: ce ce 00 Tachyarrhy Tachyarrhy Disease Active U T thmia thmia 4-25 Health 00:00: 00 Urge Urge Disease Active [facility] incontinen incontinen 4-25 He alth ce ce 00:00: 00 Hyperchole Hyperchole Disease Active U nivers sterolemia sterolemia - it y of 00:00: [place] 00 [facility] Branch Hypertensi Hypertensi Disease Active U leroy on on 01-26 ity of 00:00: [place] [facility] . 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 - ity of 00:00: [place] 00 Medical Branch Lichen Lichen Disease Active [facility] sclerosus sclerosus - Heal th 00:00: 00 PELVIC PELVIC Diagnosis Active 2019-03-01 Me moria FLOOR FLOOR 09-28 10:38:00 l Active 08:00: [place] 09/28/2018 00 [facility] Isael Trace Overactive Overactive Disease Active U T bladder bladder -19 Health 00:00: 00 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 -30 ity of 00:00: [place] 00 Medical Branch Urinary Urinary Disease Active [facility] symptom or symptom or 2-06 He alth sign sign 00:00: 00 Allergies, Adverse Reactions, Alerts Allergy Allergy Status Severity Reaction(s) Onset Inactive Treating Comm ents Source Name Type Date Date Clinician BRINZOLA DRUG Active Swelling Univer s MIDE-MAUREEN 5-31 ity of MONIDINE 00:00: [place] 00 Medical Branch NAPROXEN DRUG Active Hives Univers INGREDI 5-31 ity of 00:00: [place] 00 Medical Branch CODEINE DRUG Active Hives Univers INGREDI 5-31 ity of 00:00: [place] 00 Medical Branch PROCHLOR DRUG Active Hives Univers PERAZINE INGREDI 5-31 ity of 00:00: [place] 00 Medical Branch COVID-19 DRUG Active Med Hallucinates Un fredrick VACC, BV INGREDI 5-31 ity of (ORIG, 00:00: [place] OMICRON 00 Medical BA.4/5) Branch (MODERNA ) Codeine Drug Active Itching Univers Allergy 5-31 ity of 00:00: [place] 00 Medical Branch Prochlor Drug Active Hives Univers perazine Allergy 5-31 ity of 00:00: [place] 00 Medical Branch Covid-19 Drug Active Swelling Univer s Vacc, Bv Allergy 5-31 ity of (Orig, 00:00: [place] Omicron 00 Medical Ba.4/5) Branch (Moderna ) Naproxen Drug Active Hives Univers Allergy 5-31 ity of 00:00: [place] 00 Medical Branch Brinzola Drug Active Swelling Univer s mide-Maureen Allergy 5-31 ity of monidine 00:00: [place] 00 Medical Branch Amlodipi Drug Active [facility] ne Allergy [facility] 00:00: azepril 00 Hcl Sulfa Allergy Active Other PA Antibiot to 2-25 reaction( Healt h ics substanc 00:00: s): e 00 Shortness of breath Lotrel Lotrel Active Memoria ryan Wyatt Naprosyn Naprosyn Active Memori a l Edmundo Compazin Compazin Active Memori a e e l Edmundo NO KNOWN Drug Active [facility] ALLERGIE Class ity of S [facility] codeine codeine Active Memoria ryan [place] Social History Social Habit Start Date Stop Date Quantity Comments Source History [facility] Health Alcohol Std Drinks History [facility] Health Alcohol Binge History [facility] Health Alcohol Comment Gender identity Universit y of [facility] Sexual orientation [facility] Alcohol intake 2023-06-15 2023-06-15 Ex-drinker University 00:00:00 00:00:00 (finding) [facility] History of Social 2023-06-15 2023-06-15 Univers ity of function 00:00:00 00:00:00 [facility] Exposure to 2023-02-15 2023-02-[address] [facility] SARS-CoV-2 (event) 00:00:00 09:43:00 [facility] Tobacco use and 2023-02-25 2023-02-25 Smokeless Universit y of exposure 00:00:00 00:00:00 tobacco non-user [facility] [place] [facility] d[facility] [place] History SDOH 2021-01-26 2021-01-26 1 [facility] Alcohol Frequency 00:00:00 00:00:00 Cigarette 2021-01-26 2021-01-26 [facility] pack-years 00:00:00 00:00:00 [birth year] [facility] 00:00:00 00:00:00 Hospital Smoking Status Start Date Stop Date Source Tobacco smoking consumption [facility] unknown Never smoked tobacco [facility] Medications Ordered Filled Start Stop Current Ordering Indication Dosage Frequency Signature Comments Components Source Medication Medication Date Date Medication? Clinician (SIG) Name Name azelastine- Yes Use in Univ ers fluticasone -18 each ity of 137-50 13:50: nostril. [place] mcg/spray Medical nasal spray Branch azelastine- Yes Use in Univ ers fluticasone -18 each ity of 137-50 13:50: nostril. [place] mcg/spray 08 Medical nasal spray Branch estradioL 2022-0 Yes [id number] Apply 1g Univers (ESTRACE) 7-10 vaginally ity o f 0.01 % (0.1 00:00: at bedtime [place] mg/gram) 00 3 times Medical vaginal per week Branch cream ( dn ida) estradioL 2022-0 Yes [id number] Apply 1g Univers (ESTRACE) 7-10 vaginally ity o f 0.01 % (0.1 00:00: at bedtime [place] mg/gram) 00 3 times Medical vaginal per week Branch cream ( dn ida) estradioL 2022-0 Yes [id number] Apply 1g Univers (ESTRACE) 7-10 vaginally ity o f 0.01 % (0.1 00:00: at bedtime [place] mg/gram) 00 3 times Medical vaginal per week Branch cream ( dn iday) estradioL 2022-0 Yes [id number] Apply 1g Univers (ESTRACE) 7-10 vaginally ity o f 0.01 % (0.1 00:00: at bedtime [place] mg/gram) 00 3 times Medical vaginal per week Branch cream ( dn ida) estradioL 2022-0 Yes [id number] Apply 1g Univers (ESTRACE) 7-10 vaginally ity o f 0.01 % (0.1 00:00: at bedtime [place] mg/gram) 00 3 times Medical vaginal per week Branch cream ( dn ida) estradioL 2022-0 Yes [id number] Apply 1g Univers (ESTRACE) 7-10 vaginally ity o f 0.01 % (0.1 00:00: at bedtime [place] mg/gram) 00 3 times Medical vaginal per week Branch cream ( dn iday) estradioL 2022-0 Yes [id number] Apply 1g Univers (ESTRACE) 7-10 vaginally ity o f 0.01 % (0.1 00:00: at bedtime [place] mg/gram) 00 3 times Medical vaginal per week Branch cream ( dn ida) estradioL 2022-0 Yes [id number] Apply 1g Univers (ESTRACE) 7-10 vaginally ity o f 0.01 % (0.1 00:00: at bedtime [place] mg/gram) 00 3 times Medical vaginal per week Branch cream ( ida) estradioL Yes [id number] Apply 1g Univers (ESTRACE) 7-10 vaginally ity o f 0.01 % (0.1 00:00: at bedtime [place] mg/gram) 00 3 times Medical vaginal per week Branch cream ( ida) estradioL Yes [id number] Apply 1g Univers (ESTRACE) 7-10 vaginally ity o f 0.01 % (0.1 00:00: at bedtime [place] mg/gram) 00 3 times Medical vaginal per week Branch cream ( ida) estradioL Yes [id number] Apply 1g Univers (ESTRACE) 7-10 vaginally ity o f 0.01 % (0.1 00:00: at bedtime [place] mg/gram) 00 3 times Medical vaginal per week Branch cream ( ida) Nitrofurant 2022- No [id number] 100mg Take 1 Univers oin&Nit. 04-06 capsule by ity of [place] 04:[place]CR[place]ID[place] 00 :00 bedtime Medica l 100 mg for 6 Branch capsule doses. 3 days prior to procedure and 3 days after Nitrofurant 2022- No [id number] 100mg Take 1 Univers oin&Nit. 04-06 capsule by ity of Macrocryst 00:[place]: [place]:59 [place] ([place]CROBID[place] 00 :00 bedtime Medica l 100 mg for 6 Branch capsule doses. 3 days prior to procedure and 3 days after Nitrofurant 2022- No [id number] 100mg Take 1 Univers oin&Nit. 04-06 capsule by ity of Macroc[place] 00:00: 04:59 [place] (MACROBID[place] 00 :00 bedtime Medica l 100 mg for 6 Branch capsule doses. 3 days prior to procedure and 3 days after metformin Yes metformin Uni vers ER 750 mg 5-31 ER 750 mg ity o f 24 hr 10:05: tablet,ext [place] tablet 15 ended Medical release 24 Branch hr TAKE 1 TABLET BY MOUTH TWICE A DAY fexofenadin 2022-0 Yes [facility] s e-pseudoeph 02-25 ity of edrine 10:05: [place] 180-240 mg 15 Medical per 24 hr Branch tablet Magnesium 0 Yes Take by Unive rs Oxide 500 5-31 mouth. ity of mg Tab 10:05: [place] [address] Medical Branch multivit-mi Yes Take by Uni vers nerals/foli 5-31 mouth. ity of c acid 10:05: [place] ([facility] 15 Medical ADULTS Branch ORAL) aspirin 81 Yes Take by Univ ers mg Cap 5-31 mouth. ity of 10:05: [place] [address] Medical Branch icosapent Yes Take by Unive rs ethyL 5-31 mouth. ity of (VASCEPA) 1 10:05: [place] gram 15 Medical capsule Branch albuterol Yes Univers 90 - ity of mcg/actuati 10:05: [place] on inhaler 15 Medical Branch budesonide- Yes Symbicort U nivers formoteroL 02-25 80 mcg-4.5 ity of 80-4.5 10:05: mcg/actuat [place] mcg/actuati 15 ion HFA Medic al on inhaler aerosol Branch inhaler 2 PUFF(S) INHALED 2 TIMES A DAY 90 DAYS metformin Yes metformin Uni vers ER 750 mg 5-31 ER 750 mg ity o f 24 hr 10:05: tablet,ext [place] tablet 15 ended Medical release 24 Branch hr TAKE 1 TABLET BY MOUTH TWICE A DAY fexofenadin 0 Yes [facility] s e-pseudoeph 02-25 ity of edrine 10:05: [place] 180-240 mg 15 Medical per 24 hr Branch tablet Magnesium 0 Yes Take by Unive rs Oxide 500 5-31 mouth. ity of mg Tab 10:05: [place] [address] Medical Branch multivit-mi Yes Take by Uni vers nerals/foli 5-31 mouth. ity of c acid 10:05: [place] ([facility] 15 Medical ADULTS Branch ORAL) aspirin 81 Yes Take by Univ ers mg Cap 5-31 mouth. ity of 10:05: [place] 15 Medical Branch icosapent Yes Take by [facility] rs ethyL 5-31 mouth. ity of (VASCEPA) 1 10:05: [place] gram 15 Medical capsule Branch albuterol 0 Yes Univers 90 5-31 ity of mcg/actuati 10:05: [place] on inhaler 15 Medical Branch budesonide- Yes Symbicort U nivers formoteroL 5-31 80 mcg-4.5 ity of 80-4.5 10:05: mcg/actuat [place] mcg/actuati 15 ion HFA Medic al on inhaler aerosol Branch inhaler 2 PUFF(S) INHALED 2 TIMES A DAY 90 DAYS metformin Yes metformin Uni vers ER 750 mg 5-31 ER 750 mg ity o f 24 hr 10:05: tablet,ext [place] tablet 15 ended Medical release 24 Branch hr TAKE 1 TABLET BY MOUTH TWICE A DAY fexofenadin Yes [facility] s e-pseudoeph 02-25 ity of edrine 10:05: [place] 180-240 mg 15 Medical per 24 hr Branch tablet Magnesium Yes Take by [facility] rs Oxide 500 5- mouth. ity of mg Tab 10:05: [place] 15 Medical Branch multivit-mi Yes Take by [facility] vers nerals/foli 5-31 mouth. ity of c acid 10:05: [place] ([facility] 15 Medical ADULTS Branch ORAL) aspirin 81 Yes Take by [facility] ers mg Cap 5-31 mouth. ity of 10:05: [place] [address] Medical Branch icosapent Yes Take by [facility] rs ethyL 5-31 mouth. ity of (VASCEPA) 1 10:05: [place] gram 15 Medical capsule Branch albuterol Yes Univers 90 5-31 ity of mcg/actuati 10:05: [place] on inhaler 15 Medical Branch budesonide- Yes Symbicort U nivers formoteroL 5-31 80 mcg-4.5 ity of 80-4.5 10:05: mcg/actuat [place] mcg/actuati 15 ion HFA Medic al on inhaler aerosol Branch inhaler 2 PUFF(S) INHALED 2 TIMES A DAY 90 DAYS metformin 2023-0 Yes metformin Uni vers ER 750 mg 5-31 ER 750 mg ity o f 24 hr 10:05: tablet,ext [place] tablet 15 ended Medical release 24 Branch hr TAKE 1 TABLET BY MOUTH TWICE A DAY fexofenadin 0 Yes [facility] s e-pseudoeph 02-25 ity of edrine 10:05: [place] 180-240 mg 15 Medical per 24 hr Branch tablet Magnesium 0 Yes Take by Unive rs Oxide 500 5-31 mouth. ity of mg Tab 10:05: [place] [address] Medical Branch multivit-mi Yes Take by Uni vers nerals/foli 5-31 mouth. ity of c acid 10:05: [place] ([facility] 15 Medical ADULTS Branch ORAL) aspirin 81 Yes Take by Univ ers mg Cap 5-31 mouth. ity of 10:05: [place] [address] Medical Branch icosapent Yes Take by Unive rs ethyL 5-31 mouth. ity of (VASCEPA) 1 10:05: [place] gram 15 Medical capsule Branch albuterol Yes Univers 90 02-25 ity of mcg/actuati 10:05: [place] on inhaler 15 Medical Branch budesonide- Yes Symbicort U nivers formoteroL 02-25 80 mcg-4.5 ity of 80-4.5 10:05: mcg/actuat [place] mcg/actuati 15 ion HFA Medic al on inhaler aerosol Branch inhaler 2 PUFF(S) INHALED 2 TIMES A DAY 90 DAYS metformin Yes metformin Uni vers ER 750 mg 5-31 ER 750 mg ity o f 24 hr 10:05: tablet,ext [place] tablet 15 ended Medical release 24 Branch hr TAKE 1 TABLET BY MOUTH TWICE A DAY fexofenadin 0 Yes [facility] s e-pseudoeph 02-25 ity of edrine 10:05: [place] 180-240 mg 15 Medical per 24 hr Branch tablet Magnesium Yes Take by Unive rs Oxide 500 5-31 mouth. ity of mg Tab 10:05: [place] [address] Medical Branch multivit-mi Yes Take by Uni vers nerals/foli 5-31 mouth. ity of c acid 10:05: [place] ([facility] 15 Medical ADULTS Branch ORAL) aspirin 81 2023-0 Yes Take by Univ ers mg Cap 5-31 mouth. ity of 10:05: [place] 15 Medical Branch icosapent Yes Take by [facility] rs ethyL 5-31 mouth. ity of (VASCEPA) 1 10:05: [place] gram 15 Medical capsule Branch albuterol Yes Univers 90 5-31 ity of mcg/actuati 10:05: [place] on inhaler 15 Medical Branch budesonide- Yes Symbicort U nivers formoteroL 5-31 80 mcg-4.5 ity of 80-4.5 10:05: mcg/actuat [place] mcg/actuati 15 ion HFA Medic al on inhaler aerosol Branch inhaler 2 PUFF(S) INHALED 2 TIMES A DAY 90 DAYS metformin Yes metformin Uni vers ER 750 mg 5-31 ER 750 mg ity o f 24 hr 10:05: tablet,ext [place] tablet 15 ended Medical release 24 Branch hr TAKE 1 TABLET BY MOUTH TWICE A DAY fexofenadin Yes [facility] e-pseudoeph 02-25 ity of edrine 10:05: [place] 180-240 mg 15 Medical per 24 hr Branch tablet Magnesium Yes Take by [facility] rs Oxide 500 5-31 mouth. ity of mg Tab 10:05: [place] [address] Medical Branch multivit-mi Yes Take by [facility] vers nerals/foli 5-31 mouth. ity of c acid 10:05: [place] ([facility] 15 Medical ADULTS Branch ORAL) aspirin 81 Yes Take by [facility] ers mg Cap 5-31 mouth. ity of 10:05: [place] [address] Medical Branch icosapent Yes Take by [facility] rs ethyL 5-31 mouth. ity of (VASCEPA) 1 10:05: [place] gram 15 Medical capsule Branch albuterol Yes Univers 90 5-31 ity of mcg/actuati 10:05: [place] on inhaler 15 Medical Branch budesonide- Yes Symbicort U nivers formoteroL 5-31 80 mcg-4.5 ity of 80-4.5 10:05: mcg/actuat [place] mcg/actuati 15 ion HFA Medic al on inhaler aerosol Branch inhaler 2 PUFF(S) INHALED 2 TIMES A DAY 90 DAYS metformin 2023-0 Yes metformin Uni vers ER 750 mg 5-31 ER 750 mg ity o f 24 hr 10:05: tablet,ext [place] tablet 15 ended Medical release 24 Branch hr TAKE 1 TABLET BY MOUTH TWICE A DAY fexofenadin 0 Yes [facility] s e-pseudoeph 02-25 ity of edrine 10:05: [place] 180-240 mg 15 Medical per 24 hr Branch tablet Magnesium 0 Yes Take by Unive rs Oxide 500 5-31 mouth. ity of mg Tab 10:05: [place] [address] Medical Branch multivit-mi Yes Take by Uni vers nerals/foli 5-31 mouth. ity of c acid 10:05: [place] ([facility] 15 Medical ADULTS Branch ORAL) aspirin 81 Yes Take by Univ ers mg Cap 5-31 mouth. ity of 10:05: [place] [address] Medical Branch icosapent Yes Take by Unive rs ethyL 5-31 mouth. ity of (VASCEPA) 1 10:05: [place] gram 15 Medical capsule Branch albuterol Yes Univers 90 02-25 ity of mcg/actuati 10:05: [place] on inhaler 15 Medical Branch budesonide- Yes Symbicort U nivers formoteroL 02-25 80 mcg-4.5 ity of 80-4.5 10:05: mcg/actuat [place] mcg/actuati 15 ion HFA Medic al on inhaler aerosol Branch inhaler 2 PUFF(S) INHALED 2 TIMES A DAY 90 DAYS metformin Yes metformin Uni vers ER 750 mg 5-31 ER 750 mg ity o f 24 hr 10:05: tablet,ext [place] tablet 15 ended Medical release 24 Branch hr TAKE 1 TABLET BY MOUTH TWICE A DAY fexofenadin 0 Yes [facility] s e-pseudoeph 02-25 ity of edrine 10:05: [place] 180-240 mg 15 Medical per 24 hr Branch tablet Magnesium Yes Take by Unive rs Oxide 500 5-31 mouth. ity of mg Tab 10:05: [place] [address] Medical Branch multivit-mi Yes Take by Uni vers nerals/foli 5-31 mouth. ity of c acid 10:05: [place] ([facility] 15 Medical ADULTS Branch ORAL) aspirin 81 2023-0 Yes Take by Univ ers mg Cap 5-31 mouth. ity of 10:05: [place] 15 Medical Branch icosapent Yes Take by [facility] rs ethyL 5-31 mouth. ity of (VASCEPA) 1 10:05: [place] gram 15 Medical capsule Branch albuterol Yes Univers 90 5-31 ity of mcg/actuati 10:05: [place] on inhaler 15 Medical Branch budesonide- Yes Symbicort U nivers formoteroL 5-31 80 mcg-4.5 ity of 80-4.5 10:05: mcg/actuat [place] mcg/actuati 15 ion HFA Medic al on inhaler aerosol Branch inhaler 2 PUFF(S) INHALED 2 TIMES A DAY 90 DAYS metformin Yes metformin Uni vers ER 750 mg 5-31 ER 750 mg ity o f 24 hr 10:05: tablet,ext [place] tablet 15 ended Medical release 24 Branch hr TAKE 1 TABLET BY MOUTH TWICE A DAY fexofenadin Yes [facility] s e-pseudoeph 02-25 ity of edrine 10:05: [place] 180-240 mg 15 Medical per 24 hr Branch tablet Magnesium Yes Take by [facility] rs Oxide 500 5-31 mouth. ity of mg Tab 10:05: [place] [address] Medical Branch multivit-mi Yes Take by Uni vers nerals/foli 5-31 mouth. ity of c acid 10:05: [place] ([facility] 15 Medical ADULTS Branch ORAL) aspirin 81 Yes Take by [facility] ers mg Cap 5-31 mouth. ity of 10:05: [place] [address] Medical Branch icosapent Yes Take by [facility] rs ethyL 5-31 mouth. ity of (VASCEPA) 1 10:05: [place] gram 15 Medical capsule Branch albuterol Yes Univers 90 5-31 ity of mcg/actuati 10:05: [place] on inhaler 15 Medical Branch budesonide- Yes Symbicort U nivers formoteroL 5-31 80 mcg-4.5 ity of 80-4.5 10:05: mcg/actuat [place] mcg/actuati 15 ion HFA Medic al on inhaler aerosol Branch inhaler 2 PUFF(S) INHALED 2 TIMES A DAY 90 DAYS metformin Yes metformin Uni vers ER 750 mg 5-31 ER 750 mg ity o f 24 hr 10:05: tablet,ext [place] tablet 15 ended Medical release 24 Branch hr TAKE 1 TABLET BY MOUTH TWICE A DAY fexofenadin 0 Yes [facility] s e-pseudoeph 02-25 ity of edrine 10:05: [place] 180-240 mg 15 Medical per 24 hr Branch tablet Magnesium 0 Yes Take by Unive rs Oxide 500 5-31 mouth. ity of mg Tab 10:05: [address] Branch multivit-mi Yes Take by Uni vers nerals/foli 5-31 mouth. ity of c acid 10:05: [place] ([facility] 15 Medical ADULTS Branch ORAL) aspirin 81 Yes Take by Univ ers mg Cap 5-31 mouth. ity of 10:05: [address] Branch icosapent Yes Take by Unive rs ethyL 5-31 mouth. ity of (VASCEPA) 1 10:05: [place] gram Medical capsule Branch albuterol Yes Univers 90 02-25 ity of mcg/actuati 10:05: [place] on inhaler Medical Branch budesonide- Yes Symbicort U nivers formoteroL 02-25 80 mcg-4.5 ity of 80-4.5 10:05: mcg/actuat [place] mcg/actuati 15 ion HFA Medic al on inhaler aerosol Branch inhaler 2 PUFF(S) INHALED 2 TIMES A DAY 90 DAYS metformin Yes metformin Uni vers ER 750 mg 5-31 ER 750 mg ity o f 24 hr 10:05: tablet,ext [place] tablet 15 ended Medical release 24 Branch hr TAKE 1 TABLET BY MOUTH TWICE A DAY fexofenadin 0 Yes [facility] s e-pseudoeph 02-25 ity of edrine 10:05: [place] 180-240 mg 15 Medical per 24 hr Branch tablet Magnesium Yes Take by Unive rs Oxide 500 5-31 mouth. ity of mg Tab 10:05: [address] Branch multivit-mi Yes Take by Uni vers nerals/foli 5-31 mouth. ity of c acid 10:05: [place] ([facility] 15 Medical ADULTS Branch ORAL) aspirin 81 Yes Take by Univ ers mg Cap 5-31 mouth. ity of 10:05: [place] 15 Medical Branch icosapent Yes Take by [facility] rs ethyL 5-31 mouth. ity of (VASCEPA) 1 10:05: [place] gram 15 Medical capsule Branch albuterol 2022-0 Yes Univers 90 5-31 ity of mcg/actuati 10:05: [place] on inhaler 15 Medical Branch budesonide- Yes Symbicort U nivers formoteroL 5-31 80 mcg-4.5 ity of 80-4.5 10:05: mcg/actuat [place] mcg/actuati 15 ion HFA Medic al on inhaler aerosol Branch inhaler 2 PUFF(S) INHALED 2 TIMES A DAY 90 DAYS vibegron Yes [id number] 75mg Take 75 mg Univers (GEMTESA) 5-31 by mouth ity of 75 mg Tab 00:00: in the [place] 00 morning. Medical Branch vibegron Yes [id number] 75mg Take 75 mg Univers (GEMTESA) 5-31 by mouth ity of 75 mg Tab 00:00: in the [place] 00 morning. Medical Branch vibegron Yes [id number] 75mg Take 75 mg Univers (GEMTESA) 5-31 by mouth ity of 75 mg Tab 00:00: in the [place] 00 morning. Medical Branch vibegron Yes [id number] 75mg Take 75 mg Univers (GEMTESA) 5-31 by mouth ity of 75 mg Tab 00:00: in the [place] 00 morning. Medical Branch vibegron Yes [id number] 75mg Take 75 mg Univers (GEMTESA) 5-31 by mouth ity of 75 mg Tab 00:00: in the [place] 00 morning. Medical Branch vibegron 0 Yes [id number] 75mg Take 75 mg Univers (GEMTESA) 5-31 by mouth ity of 75 mg Tab 00:00: in the [place] 00 morning. Medical Branch vibegron 0 Yes [id number] 75mg Take 75 mg Univers (GEMTESA) 5-31 by mouth ity of 75 mg Tab 00:00: in the [place] 00 morning. Medical Branch vibegron 0 Yes [id number] 75mg Take 75 mg Univers (GEMTESA) 5-31 by mouth ity of 75 mg Tab 00:00: in the [place] morning. Medical Branch vibegron 2023-0 Yes [id number] 75mg Take 75 mg Univers (GEMTESA) 5-31 by mouth ity of 75 mg Tab 00:00: in the [place] morning. Medical Branch vibegron 2023-0 Yes [id number] 75mg Take 75 mg [facility] (GEMTESA) 5-31 by mouth ity of 75 mg Tab 00:00: in the [place] morning. Medical Branch vibegron 2023-0 Yes [id number] 75mg Take 75 mg [facility] (GEMTESA) 5-31 by mouth ity of 75 mg Tab 00:00: in the [place] morning. Medical Branch Colestipol 2023-0 Yes TAKE 1 [facility] rs HCl 1 gram 5-20 TABLET BY ity of tablet 00:00: MOUTH TWICE A Medical DAY Branch NEEDED Colestipol 2023-0 Yes TAKE 1 [facility] rs HCl 1 gram 5-20 TABLET BY ity of tablet 00:00: MOUTH 00 TWICE A Medical DAY Branch NEEDED Colestipol 2023-0 Yes TAKE 1 [facility] rs HCl 1 gram 5-20 TABLET BY ity of tablet 00:00: MOUTH 00 TWICE A Medical DAY Branch NEEDED Colestipol 2023-0 Yes TAKE 1 [facility] rs HCl 1 gram 5-20 TABLET BY ity of tablet 00:00: MOUTH 00 TWICE A Medical DAY Branch NEEDED Colestipol 2023-0 Yes TAKE 1 [facility] rs HCl 1 gram 5-20 TABLET BY ity of tablet 00:00: MOUTH 00 TWICE A Medical DAY Branch NEEDED Colestipol 2023-0 Yes TAKE 1 [facility] rs HCl 1 gram 5-20 TABLET BY ity of tablet 00:00: MOUTH 00 TWICE A Medical DAY Branch NEEDED Colestipol 2023-0 Yes TAKE 1 [facility] rs HCl 1 gram 5-20 TABLET BY ity of tablet 00:00: MOUTH 00 TWICE A Medical DAY Branch NEEDED Colestipol 2023-0 Yes TAKE 1 [facility] rs HCl 1 gram 5-20 TABLET BY it[facility] of tablet 00:00: MOUTH 00 TWICE A Medical DAY Branch NEEDED Colestipol 2023-0 Yes TAKE 1 [facility] rs HCl 1 gram 5-20 TABLET BY it[facility] of tablet 00:00: MOUTH [place] 00 TWICE A Medical DAY Branch NEEDED Colestipol 2023-0 Yes TAKE 1 [facility] rs HCl 1 gram 5-20 TABLET BY ity of tablet 00:00: MOUTH [place] 00 TWICE A Medical DAY Branch NEEDED Colestipol 2023-0 Yes TAKE 1 [facility] rs HCl 1 gram 5-20 TABLET BY ity of tablet 00:00: MOUTH [place] 00 TWICE A Medical DAY Branch NEEDED rosuvastati 2023-0 Yes 40mg Take 1 [facility] ers n 40 mg 5-06 tablet by ity of tablet 00:00: mouth [place] 00 every Medical morning. Branch rosuvastati 2023-0 Yes 40mg Take 1 [facility] ers n 40 mg 5-06 tablet by ity of tablet 00:00: mouth [place] 00 every Medical morning. Branch rosuvastati 2023-0 Yes 40mg Take 1 [facility] ers n 40 mg 5-06 tablet by ity of tablet 00:00: mouth [place] 00 every Medical morning. Branch rosuvastati 2023-0 Yes 40mg Take 1 [facility] ers n 40 mg 5-06 tablet by ity of tablet 00:00: mouth [place] 00 every Medical morning. Branch rosuvastati 2023-0 Yes 40mg Take 1 [facility] ers n 40 mg 5-06 tablet by ity of tablet 00:00: mouth [place] 00 every Medical morning. Branch rosuvastati 2023-0 Yes 40mg Take 1 [facility] ers n 40 mg 5-06 tablet by ity of tablet 00:00: mouth [place] 00 every Medical morning. Branch rosuvastati 2023-0 Yes 40mg Take 1 [facility] ers n 40 mg 5-06 tablet by ity of tablet 00:00: mouth [place] 00 every Medical morning. Branch rosuvastati 2023-0 Yes 40mg Take 1 [facility] ers n 40 mg 5-06 tablet by ity of tablet 00:00: mouth [place] 00 every Medical morning. Branch rosuvastati 2023-0 Yes 40mg Take 1 [facility] ers n 40 mg 5-06 tablet by ity of tablet 00:00: mouth [place] 00 every Medical morning. Branch rosuvastati 2023-0 Yes 40mg Take 1 [facility] ers n 40 mg 5-06 tablet by ity of tablet 00:00: mouth [place] 00 every Medical morning. Branch rosuvastati 2023-0 Yes 40mg Take 1 [facility] ers n 40 mg 5-06 tablet by ity of tablet 00:00: mouth [place] 00 every Medical morning. Branch levothyroxi 3-0 Yes 50ug Take 1 [facility] ers ne 50 mcg 4-17 tablet by ity o f tablet 00:00: mouth [place] 00 every Medical morning. Branch levothyroxi 3-0 Yes 50ug Take 1 [facility] ers ne 50 mcg 4-17 tablet by ity o f tablet 00:00: mouth [place] 00 every Medical morning. Branch levothyroxi 3-0 Yes 50ug Take 1 [facility] ers ne 50 mcg 4-17 tablet by ity o f tablet 00:00: mouth [place] 00 every Medical morning. Branch levothyroxi 3-0 Yes 50ug Take 1 [facility] ers ne 50 mcg 4-17 tablet by ity o f tablet 00:00: mouth [place] 00 every Medical morning. Branch levothyroxi 3-0 Yes 50ug Take 1 [facility] ers ne 50 mcg 4-17 tablet by ity o f tablet 00:00: mouth [place] 00 every Medical morning. Branch levothyroxi 3-0 Yes 50ug Take 1 [facility] ers ne 50 mcg 4-17 tablet by ity o f tablet 00:00: mouth [place] 00 every Medical morning. Branch levothyroxi 3-0 Yes 50ug Take 1 [facility] ers ne 50 mcg 4-17 tablet by ity o f tablet 00:00: mouth [place] 00 every Medical morning. Branch levothyroxi 3-0 Yes 50ug Take 1 [facility] ers ne 50 mcg 4-17 tablet by ity o f tablet 00:00: mouth [place] 00 every Medical morning. Branch levothyroxi 3-0 Yes 50ug Take 1 [facility] ers ne 50 mcg 4-17 tablet by ity o f tablet 00:00: mouth [place] 00 every Medical morning. Branch levothyroxi 3-0 Yes 50ug Take 1 [facility] ers ne 50 mcg 4-17 tablet by ity o f tablet 00:00: mouth [place] 00 every Medical morning. Branch levothyroxi 3-0 Yes 50ug Take 1 [facility] ers ne 50 mcg 4-17 tablet by ity o f tablet 00:00: mouth [place] 00 every Medical morning. Branch omeprazole 3-0 Yes TAKE 1 [facility] rs 20 mg 4-16 CAPSULE BY ity of capsule 00:00: MOUTH IN [place] 00 THE Medical MORNING Branch omeprazole 2023-0 Yes TAKE 1 [facility] rs 20 mg 4-16 CAPSULE BY ity of capsule 00:00: MOUTH IN [place] 00 THE Medical MORNING Branch omeprazole 2023-0 Yes TAKE 1 [facility] rs 20 mg 4-16 CAPSULE BY ity of capsule 00:00: MOUTH IN [place] 00 THE Medical MORNING Branch omeprazole 2023-0 Yes TAKE 1 [facility] rs 20 mg 4-16 CAPSULE BY ity of capsule 00:00: MOUTH IN [place] 00 THE Medical MORNING Branch omeprazole 2023-0 Yes TAKE 1 [facility] rs 20 mg 4-16 CAPSULE BY ity of capsule 00:00: MOUTH IN [place] 00 THE Medical MORNING Branch omeprazole 2023-0 Yes TAKE 1 [facility] rs 20 mg 4-16 CAPSULE BY ity of capsule 00:00: MOUTH IN [place] 00 THE Medical MORNING Branch omeprazole 2023-0 Yes TAKE 1 [facility]ive rs 20 mg 4-16 CAPSULE BY ity of capsule 00:00: MOUTH IN [place] 00 THE Medical MORNING Branch omeprazole 2023-0 Yes TAKE 1 [facility] rs 20 mg 4-16 CAPSULE BY ity of capsule 00:00: MOUTH IN [place] 00 THE Medical MORNING Branch omeprazole 2023-0 Yes TAKE 1 Unive rs 20 mg 4-16 CAPSULE BY ity of capsule 00:00: MOUTH IN [place] 00 THE Medical MORNING Branch omeprazole 2023-0 Yes TAKE 1 Unive rs 20 mg 4-16 CAPSULE BY ity of capsule 00:00: MOUTH IN [place] 00 THE Medical MORNING Branch omeprazole 2023-0 Yes TAKE 1 [facility]ive rs 20 mg 4-16 CAPSULE BY ity of capsule 00:00: MOUTH IN [place] 00 THE Medical MORNING Branch losartan-hy 3-0 Yes 1{tbl} Take 1 [facility] drochloroth 3-31 tablet by ity of iazide 00:00: mouth in [place] 100-12.5 mg 00 the Medical per tablet morning. Bran h nebivoloL 5 2022-0 Yes 5mg Take 1 [facility] ers mg tablet 3-31 tablet by ity o f 00:00: mouth [place] 00 every Medical morning. Branch losartan-hy 3-0 Yes 1{tbl} Take 1 [facility] drochloroth 3-31 tablet by ity of iazide 00:00: mouth in [place] 100-12.5 mg 00 the Medical per tablet morning. Bran h nebivoloL 5 3-0 Yes 5mg Take 1 [facility] ers mg tablet 3-31 tablet by ity o f 00:00: mouth [place] 00 every Medical morning. Branch losartan-hy 3-0 Yes 1{tbl} Take 1 [facility] drochloroth 3-31 tablet by ity of iazide 00:00: mouth in [place] 100-12.5 mg 00 the Medical per tablet morning. Bran h nebivoloL 5 3-0 Yes 5mg Take 1 Univ ers mg tablet 3-31 tablet by ity o f 00:00: mouth [place] 00 every Medical morning. Branch losartan-hy 3-0 Yes 1{tbl} Take 1 [facility] drochloroth 3-31 tablet by ity of iazide 00:00: mouth in [place] 100-12.5 mg 00 the Medical per tablet morning. Bran h nebivoloL 5 3-0 Yes 5mg Take 1 [facility] ers mg tablet 3-31 tablet by ity o f 00:00: mouth [place] 00 every Medical morning. Branch losartan-hy 3-0 Yes 1{tbl} Take 1 [facility] drochloroth 3-31 tablet by ity of iazide 00:00: mouth in [place] 100-12.5 mg 00 the Medical per tablet morning. Bran h nebivoloL 5 3-0 Yes 5mg Take 1 Univ ers mg tablet 3-31 tablet by ity o f 00:00: mouth [place] 00 every Medical morning. Branch losartan-hy 3-0 Yes 1{tbl} Take 1 [facility] drochloroth 3-31 tablet by ity of iazide 00:00: mouth in [place] 100-12.5 mg 00 the Medical per tablet morning. Bran h nebivoloL 5 3-0 Yes 5mg Take 1 [facility] ers mg tablet 3-31 tablet by ity o f 00:00: mouth [place] 00 every Medical morning. Branch losartan-hy 2023-0 Yes 1{tbl} Take 1 [facility] drochloroth 3-31 tablet by ity of iazide 00:00: mouth in [place] 100-12.5 mg 00 the Medical per tablet morning. Bran h nebivoloL 5 3-0 Yes 5mg Take 1 [facility] ers mg tablet 3-31 tablet by ity o f 00:00: mouth [place] 00 every Medical morning. Branch losartan-hy 2023-0 Yes 1{tbl} Take 1 [facility] drochloroth 3-31 tablet by ity of iazide 00:00: mouth in [place] 100-12.5 mg 00 the Medical per tablet morning. Bran h nebivoloL 5 3-0 Yes 5mg Take 1 [facility] ers mg tablet 3-31 tablet by ity o f 00:00: mouth [place] 00 every Medical morning. Branch losartan-hy 2023-0 Yes 1{tbl} Take 1 [facility] drochloroth 3-31 tablet by ity of iazide 00:00: mouth in [place] 100-12.5 mg 00 the Medical per tablet morning. Bran h nebivoloL 5 3-0 Yes 5mg Take 1 [facility] ers mg tablet 3-31 tablet by ity o f 00:00: mouth [place] 00 every Medical morning. Branch losartan-hy 2023-0 Yes 1{tbl} Take 1 [facility] drochloroth 3-31 tablet by ity of iazide 00:00: mouth in [place] 100-12.5 mg 00 the Medical per tablet morning. Bran h nebivoloL 5 3-0 Yes 5mg Take 1 [facility] ers mg tablet 3-31 tablet by ity o f 00:00: mouth [place] 00 every Medical morning. Branch losartan-hy 3-0 Yes 1{tbl} Take 1 [facility] drochloroth 3-31 tablet by ity of iazide 00:00: mouth in [place] 100-12.5 mg 00 the Medical per tablet morning. Bran h nebivoloL 5 3-0 Yes 5mg Take 1 Univ ers mg tablet 3-31 tablet by ity o f 00:00: mouth [place] 00 every Medical morning. Branch clobetasoL 2022-0 Yes Apply to [facility] vers 0.05 % 8-23 area(s). ity of cream 00:00: 00 Medical Branch clobetasoL 2022-0 Yes Apply to [facility] vers 0.05 % 8-23 area(s). ity of cream 00:00: 00 Medical Branch clobetasoL 2022-0 Yes Apply to [facility] vers 0.05 % 8-23 area(s). ity of cream 00:00: 00 Medical Branch clobetasoL 2022-0 Yes Apply to [facility] vers 0.05 % 8-23 area(s). ity of cream 00:00: Medical Branch clobetasoL 2-0 Yes Apply to [facility] vers 0.05 % 8-23 area(s). ity of cream 00:00: Medical Branch clobetasoL 2022-0 Yes Apply to [facility] vers 0.05 % 8-23 area(s). ity of cream 00:00: Medical Branch clobetasoL 2022-0 Yes Apply to [facility] vers 0.05 % 8-23 area(s). ity of cream 00:00: Medical Branch clobetasoL 2-0 Yes Apply to [facility] vers 0.05 % 8-23 area(s). ity of cream 00:00: Medical Branch clobetasoL 2-0 Yes Apply to [facility] vers 0.05 % 8-23 area(s). ity of cream 00:00: Medical Branch clobetasoL 2-0 Yes Apply to [facility] vers 0.05 % 8-23 area(s). ity of cream 00:00: Medical Branch clobetasoL 2-0 Yes Apply to [facility] vers 0.05 % 8-23 area(s). ity of cream 00:00: Medical Branch estradioL 2022- No estradiol [facility] 0.01 % (0.1 05-20 07-10 0.01% (0.1 i ty of mg/gram) 00:00: 00:00 mg/gram) [place] vaginal 00 :00 vaginal Medical cream cream USE Branch TWICE WEEKLY DIRECTED. estradioL 2022- No estradiol Un [facility] 0.01 % (0.1 8- 07-10 0.01% (0.1 i ty of mg/gram) 00:00: 00:00 mg/gram) [place] vaginal 00 :00 vaginal Medical cream cream USE Branch TWICE WEEKLY DIRECTED. Vibegron 2021- 202- No [id number] 75mg QD Take 75 mg [facility] (Gemtesa) 03-28 by mouth 1 [facility] 75 MG 00:00: 04:59 (one) time tablet 00 :00 each day. nebivolol 2022-0 Yes 5mg Take 5 mg [facility] (Bystolic) 6-20 by mouth 1 [facility] 5 MG tablet 00:00: (one) time 00 each day in the morning. Vibegron 2021-0 2021- No [id number] 75mg QD Take 75 mg [facility] (Gemtesa) 6-11 by mouth 1 [facility] 75 MG 00:00: 04:59 (one) time tablet 00 :00 each day. Vibegron 2021-0 2021- No [id number] 75mg QD Take 75 mg [facility] (Gemtesa) 6-07 04- by mouth 1 [facility] 75 MG 00:00: 00:00 (one) time tablet 00 :00 each day. nystatin 2022-0 Yes 1554 Q.5D Apply [facility] (Mycostatin 4-25 topically [facility] ) cream 00:00: 2 (two) 00 times a day. nystatin 2022-0 Yes 1554 Q.5D Apply [facility] (Mycostatin 4-25 topically [facility] ) cream 00:00: 2 (two) 00 times a day. nystatin 2-0 Yes 1554 Q.5D Apply [facility] (Mycostatin 4-25 topically [facility]a [facility]th ) cream 00:00: 2 (two) 00 times a day. nystatin 2022-0 Yes 1554 Q.5D Apply [facility] (Mycostatin 4-25 topically [facility]a [facility]th ) cream 00:00: 2 (two) 00 times a day. predniSONE 2022-0 Yes 10mg Q.5D Take 10 mg [facility] (Deltasone) 4-13 by mouth 2 He alth 10 MG 00:00: (two) tablet 00 times a day. colestipol 2022-0 Yes 1g Q.5D Take 1 g [facility] (Colestid) 4-13 by mouth 2 [facility] 1 g tablet 00:00: (two) 00 times a day if needed. predniSONE 2022-0 Yes 10mg Q.5D Take 10 mg [facility] (Deltasone) 4-13 by mouth 2 He alth 10 MG 00:00: (two) tablet 00 times a day. colestipol 2022-0 Yes 1g Q.5D Take 1 g [facility] (Colestid) 4-13 by mouth 2 [facility] 1 g tablet 00:00: (two) 00 times a day if needed. predniSONE 2022-0 Yes 10mg Q.5D Take 10 mg [facility] (Deltasone) 4-13 by mouth 2 He alth 10 MG 00:00: (two) tablet 00 times a day. colestipol 2022-0 Yes 1g Q.5D Take 1 g [facility] (Colestid) 4-13 by mouth 2 [facility]a [facility] 1 g tablet 00:00: (two) 00 times a day if needed. predniSONE 2022-0 Yes 10mg Q.5D Take 10 mg [facility] (Deltasone) 4-13 by mouth 2 He alth 10 MG 00:00: (two) tablet 00 times a day. colestipol 2022-0 Yes 1g Q.5D Take 1 g [facility] (Colestid) 4-13 by mouth 2 [facility] 1 g tablet 00:00: (two) 00 times a day if needed. simvastatin 2022-0 Yes 80mg QD Take 80 mg [facility] (Zocor) 80 4-07 by mouth 1 [facility]a [facility] MG tablet 00:00: (one) time 00 each day. simvastatin 2022-0 Yes 80mg QD Take 80 mg [facility] (Zocor) 80 4-07 by mouth 1 [facility]a [facility] MG tablet 00:00: (one) time 00 each day. simvastatin 2022-0 Yes 80mg QD Take 80 mg [facility] (Zocor) 80 4-07 by mouth 1 [facility]a [facility] MG tablet 00:00: (one) time 00 each day. simvastatin 2022-0 Yes 80mg QD Take 80 mg [facility] (Zocor) 80 4-07 by mouth 1 [facility]a [facility] MG tablet 00:00: (one) time 00 each day. Myrbetriq 2022-0 Yes [id number] TAKE 1 U T 25 MG 4-05 TABLET BY Health tablet 00:00: MOUTH sustained-r 00 EVERY DAY elease 24 hour Myrbetriq 2022-0 Yes [id number] TAKE 1 U T 25 MG 4-05 TABLET BY Health tablet 00:00: MOUTH sustained-r 00 EVERY DAY elease 24 hour Myrbetriq 2022-0 2022- No [id number] TAKE 1 [facility] 25 MG 4-05 06-10 TABLET BY Health tablet 00:00: 00:00 MOUTH sustained-r 00 :00 EVERY DAY elease 24 hour fluticasone 2022-0 Yes INSTILL 2 U T (Flonase) 1-28 SPRAYS Health 50 MCG/ACT 00:00: INTO EACH nasal spray 00 NARE DAILY FOR NASAL DRAINAGE fluticasone 2-0 Yes INSTILL 2 U T (Flonase) 1-28 SPRAYS Health 50 MCG/ACT 00:00: INTO EACH nasal spray 00 NARE DAILY FOR NASAL DRAINAGE fluticasone 2-0 Yes INSTILL 2 U T (Flonase) 1-28 SPRAYS Health 50 MCG/ACT 00:00: INTO EACH nasal spray 00 NARE DAILY FOR NASAL DRAINAGE fluticasone 2-0 Yes INSTILL 2 U T (Flonase) 1-28 SPRAYS Health 50 MCG/ACT 00:00: INTO EACH nasal spray 00 NARE DAILY FOR NASAL DRAINAGE montelukast 2-0 Yes 10mg Take 10 mg [facility] (Singulair) 1-18 by mouth 1 He alth 10 MG 00:00: (one) time tablet 00 each day in the morning. montelukast 2-0 Yes 10mg Take 10 mg [facility] (Singulair) 1-18 by mouth 1 [facility] alth 10 MG 00:00: (one) time tablet 00 each day in the morning. montelukast 2-0 Yes 10mg Take 10 mg [facility] (Singulair) 1-18 by mouth 1 [facility] alth 10 MG 00:00: (one) time tablet 00 each day in the morning. montelukast 2-0 Yes 10mg Take 10 mg [facility] (Singulair) 1-18 by mouth 1 [facility] alth 10 MG 00:00: (one) time tablet 00 each day in the morning. Mirabegron 2021-0 Yes [id number] 25mg QD Take 25 mg [facility] ER 25 MG 9-17 by mouth 1 Healt h tablet 00:00: (one) time sustained-r 00 each day. elease 24 hour Mirabegron 2021-0 Yes [id number] 25mg QD Take 25 mg [facility] ER 25 MG 9-17 by mouth 1 Healt h tablet 00:00: (one) time sustained-r 00 each day. elease 24 hour Mirabegron 2021-0 Yes [id number] 25mg QD Take 25 mg [facility] ER 25 MG 9-17 by mouth 1 Healt h tablet 00:00: (one) time sustained-r 00 each day. elease 24 hour Mirabegron 2020-0 Yes [id number] 25mg QD Take 25 mg [facility] ER 25 MG 9-17 by mouth 1 Healt h tablet 00:00: (one) time sustained-r 00 each day. elease 24 hour Mirabegron 2020-0 Yes [id number] 1{tbl} Take 1 [facility] ER 8-18 tablet by [facility] ([facility] [employer]) 00:00: mouth 25 MG 00 every tablet night. sustained-r elease 24 hour Mirabegron 2020-0 Yes [id number] 1{tbl} Take 1 [facility] ER 8-18 tablet by [facility] ([facility] [employer]) 00:00: mouth 25 MG 00 every tablet night. sustained-r elease 24 hour Mirabegron 2020-0 Yes [id number] 1{tbl} Take 1 [facility] ER 8-18 tablet by [facility] (Myrbetriq) 00:00: mouth 25 MG 00 every tablet night. sustained-r elease 24 hour Mirabegron 2020-0 Yes [id number] 1{tbl} Take 1 [facility] ER 8-18 tablet by [facility] ([employer]) 00:00: mouth 25 MG 00 every tablet night. sustained-r elease 24 hour Mirabegron 2020-0 Yes [id number] 1{tbl} Take 1 [facility] ER 8-18 tablet by Health ([facility] [employer]) 00:00: mouth 25 MG 00 every tablet night. sustained-r elease 24 hour Mirabegron 2020-0 Yes [id number] 1{tbl} Take 1 [facility] ER 8-18 tablet by Health ([facility] [employer]) 00:00: mouth 25 MG 00 every tablet night. sustained-r elease 24 hour Mirabegron 2020-0 Yes [id number] 1{tbl} Take 1 [facility] ER 8-18 tablet by [facility] ([facility] [employer]) 00:00: mouth 25 MG 00 every tablet night. sustained-r elease 24 hour Mirabegron 2020-0 2022- No [id number] 1{tbl} Take 1 [facility] ER 8-18 06-10 tablet by [facility]) 00:00: 00:00 mouth 25 MG 00 :00 every tablet night. sustained-r elease 24 hour estradiol 2020-0 Yes [id number] USE TWICE [facility] (Estrace) 6-24 WEEKLY Healt h 0.1 MG/GM 00:00: DIRECTED. vaginal 00 cream clobetasol 2020-0 Yes [id number] 1{appli Q.5D Apply 1 [facility] (Temovate) 6-24 cation} applicatio Health 0.05 % 00:00: n cream 00 topically 2 (two) times a day. Apply sparingly to affected area estradiol 2020-0 Yes [id number] USE TWICE [facility] (Estrace) 6-24 WEEKLY Healt h 0.1 MG/GM 00:00: DIRECTED. vaginal 00 cream clobetasol 2020-0 Yes [id number] 1{appli Q.5D Apply 1 [facility] (Temovate) 6-24 cation} applicatio Health 0.05 % 00:00: n cream 00 topically 2 (two) times a day. Apply sparingly to affected area estradiol 2020-0 Yes [id number] USE TWICE [facility] (Estrace) 6-24 WEEKLY Healt h 0.1 MG/GM 00:00: DIRECTED. vaginal 00 cream estradiol 2020-0 Yes [id number] USE TWICE [facility] (Estrace) 6-24 WEEKLY Healt h 0.1 MG/GM 00:00: DIRECTED. vaginal 00 cream clobetasol 2020-0 Yes [id number] 1{appli Q.5D Apply 1 [facility] (Temovate) 6-24 cation} applicatio Health 0.05 % 00:00: n cream 00 topically 2 (two) times a day. Apply sparingly to affected area estradiol 2020-0 Yes [id number] USE TWICE [facility] (Estrace) 6-24 WEEKLY Healt h 0.1 MG/GM 00:00: DIRECTED. vaginal 00 cream clobetasol 2020-0 Yes [id number] 1{appli Q.5D Apply 1 [facility] (Temovate) 6-24 cation} applicatio Health 0.05 % 00:00: n cream 00 topically 2 (two) times a day. Apply sparingly to affected area estradiol 2020-0 Yes [id number] USE TWICE [facility] (Estrace) 6-24 WEEKLY Healt h 0.1 MG/GM 00:00: DIRECTED. vaginal 00 cream clobetasol 2020-0 Yes [id number] 1{appli Q.5D Apply 1 [facility] (Temovate) 6-24 cation} applicatio Health 0.05 % 00:00: n cream 00 topically 2 (two) times a day. Apply sparingly to affected area estradiol 2020-0 Yes [id number] USE TWICE [facility] (Estrace) 6-24 WEEKLY Healt h 0.1 MG/GM 00:00: DIRECTED. vaginal 00 cream clobetasol 2020-0 Yes [id number] 1{appli Q.5D Apply 1 [facility] (Temovate) 6-24 cation} applicatio Health 0.05 % 00:00: n cream 00 topically 2 (two) times a day. Apply sparingly to affected area estradiol 2020-0 Yes [id number] USE TWICE [facility] (Estrace) 6-24 WEEKLY Healt h 0.1 MG/GM 00:00: DIRECTED. vaginal 00 cream clobetasol 2020-0 Yes [id number] 1{appli Q.5D Apply 1 [facility] (Temovate) 6-24 cation} applicatio Health 0.05 % 00:00: n cream 00 topically 2 (two) times a day. Apply sparingly to affected area estradiol 2020-0 Yes [id number] USE TWICE [facility] (Estrace) 6-24 WEEKLY Healt h 0.1 MG/GM 00:00: DIRECTED. vaginal 00 cream clobetasol 2020-0 Yes [id number] 1{appli Q.5D Apply 1 [facility] (Temovate) 6-24 cation} applicatio Health 0.05 % 00:00: n cream 00 topically 2 (two) times a day. Apply sparingly to affected area clobetasol 2020-0 Yes [id number] 1{appli Q.5D Apply 1 [facility] (Temovate) 6-24 cation} applicatio Health 0.05 % 00:00: n cream 00 topically 2 (two) times a day. Apply sparingly to affected area estradiol 2020-0 Yes [id number] USE TWICE [facility] (Estrace) 6-24 WEEKLY Healt h 0.1 MG/GM 00:00: DIRECTED. vaginal 00 cream clobetasol 2020-0 Yes [id number] 1{appli Q.5D Apply 1 [facility] (Temovate) 6-24 cation} applicatio Health 0.05 % 00:00: n cream 00 topically 2 (two) times a day. Apply sparingly to affected area BromSite 2020-0 Yes [facility] 0.075 % 6-17 Health solution 00:00: 00 Lotemax SM 2020-0 Yes [facility] 0.38 % gel 6-17 Health 00:00: 00 BromSite 2020-0 Yes [facility] 0.075 % 6-17 Health solution 00:00: 00 Lotemax SM 2020-0 Yes [facility] 0.38 % gel 6-17 Health 00:00: 00 BromSite 2020-0 Yes [facility] 0.075 % 6-17 Health solution 00:00: 00 Lotemax SM 2020-0 Yes [facility] 0.38 % gel 6-17 Health 00:00: 00 BromSite 2020-0 Yes [facility] 0.075 % 6-17 Health solution 00:00: 00 BromSite 2020-0 Yes [facility] 0.075 % 6-17 Health solution 00:00: 00 Lotemax SM 2020-0 Yes [facility] 0.38 % gel 6-17 Health 00:00: 00 BromSite 2020-0 Yes [facility] 0.075 % 6-17 Health solution 00:00: 00 Lotemax SM 1-0 Yes [facility] 0.38 % gel 6-17 Health 00:00: 00 BromSite 2020-0 Yes [facility] 0.075 % 6-17 Health solution 00:00: 00 Lotemax SM 1-0 Yes [facility] 0.38 % gel 6-17 Health 00:00: 00 BromSite 2020-0 Yes [facility] 0.075 % 6-17 Health solution 00:00: 00 Lotemax SM 1-0 Yes [facility] 0.38 % gel 6-17 Health 00:00: 00 BromSite 1-0 Yes [facility] 0.075 % 6-17 Health solution 00:00: 00 Lotemax SM 1-0 Yes [facility] 0.38 % gel 6-17 Health 00:00: 00 BromSite 1-0 Yes [facility] 0.075 % 6-17 Health solution 00:00: 00 Lotemax SM 2021-0 Yes [facility] 0.38 % gel 6-17 Health 00:00: 00 Lotemax SM 1-0 Yes [facility] 0.38 % gel 6-17 Health 00:00: 00 meloxicam 1-0 Yes [facility] (Mobic) 7.5 6-07 Health MG tablet 00:00: 00 meloxicam 2021-0 Yes [facility] (Mobic) 7.5 6-07 Health MG tablet 00:00: 00 meloxicam 2021-0 Yes [facility] (Mobic) 7.5 6-07 Health MG tablet 00:00: 00 meloxicam 2021-0 Yes [facility] (Mobic) 7.5 6-07 Health MG tablet 00:00: 00 meloxicam 2021-0 Yes [facility] (Mobic) 7.5 6-07 Health MG tablet 00:00: 00 meloxicam 2021-0 Yes [facility] (Mobic) 7.5 6-07 Health MG tablet 00:00: 00 meloxicam 1-0 Yes [facility] (Mobic) 7.5 6-07 Health MG tablet 00:00: 00 meloxicam 1-0 Yes [facility] (Mobic) 7.5 6-07 Health MG tablet 00:00: 00 meloxicam 1-0 Yes [facility] (Mobic) 7.5 6-07 Health MG tablet 00:00: 00 meloxicam 1-0 Yes [facility] (Mobic) 7.5 6-07 Health MG tablet 00:00: 00 escitalopra 1-0 Yes 20mg Take 20 mg [facility] m (Lexapro) 6-05 by mouth 1 He alth 20 MG 00:00: (one) time tablet 00 each day in the morning. escitalopra 2020-0 Yes 20mg Take 20 mg [facility] m (Lexapro) 6-05 by mouth 1 He alth 20 MG 00:00: (one) time tablet 00 each day in the morning. escitalopra 1-0 Yes 20mg Take 20 mg [facility] m (Lexapro) 6-05 by mouth 1 [facility] alth 20 MG 00:00: (one) time tablet 00 each day in the morning. escitalopra 2021-0 Yes 20mg Take 20 mg [facility] m (Lexapro) 6-05 by mouth 1 [facility] alth 20 MG 00:00: (one) time tablet 00 each day in the morning. escitalopra 1-0 Yes 20mg Take 20 mg [facility] m (Lexapro) 6-05 by mouth 1 [facility] alth 20 MG 00:00: (one) time tablet 00 each day in the morning. escitalopra 2021-0 Yes 20mg Take 20 mg [facility] m (Lexapro) 6-05 by mouth 1 [facility] alth 20 MG 00:00: (one) time tablet 00 each day in the morning. escitalopra 2021-0 Yes 20mg Take 20 mg [facility] m (Lexapro) 6-05 by mouth 1 [facility] alth 20 MG 00:00: (one) time tablet 00 each day in the morning. escitalopra 2021-0 Yes 20mg Take 20 mg [facility] m (Lexapro) 6-05 by mouth 1 [facility] alth 20 MG 00:00: (one) time tablet 00 each day in the morning. escitalopra 2021-0 Yes 20mg Take 20 mg [facility] m (Lexapro) 6-05 by mouth 1 [facility] alth 20 MG 00:00: (one) time tablet 00 each day in the morning. escitalopra 2021-0 Yes 20mg Take 20 mg [facility] m (Lexapro) 6-05 by mouth 1 [facility] alth 20 MG 00:00: (one) time tablet 00 each day in the morning. donepezil 2021-0 Yes 5mg Q.5D Take 5 mg [facility] (Aricept) 5 5-11 by mouth 2 He alth MG tablet 00:00: (two) 00 times a day. donepezil 2021-0 Yes 5mg Q.5D Take 5 mg [facility] (Aricept) 5 5-11 by mouth 2 He alth MG tablet 00:00: (two) 00 times a day. donepezil 2021-0 Yes 5mg Q.5D Take 5 mg [facility] (Aricept) 5 5-11 by mouth 2 He al[facility] MG tablet 00:00: (two) 00 times a day. donepezil 2021-0 Yes 5mg Q.5D Take 5 mg [facility] (Aricept) 5 5-11 by mouth 2 He al[facility] MG tablet 00:00: (two) 00 times a day. donepezil 2021-0 Yes 5mg Q.5D Take 5 mg [facility] (Aricept) 5 5-11 by mouth 2 He al[facility] MG tablet 00:00: (two) 00 times a day. donepezil 2021-0 Yes 5mg Q.5D Take 5 mg [facility] (Aricept) 5 5-11 by mouth 2 He al[facility] MG tablet 00:00: (two) 00 times a day. donepezil 0 Yes 5mg Q.5D Take 5 mg [facility] (Aricept) 5 5-11 by mouth 2 He al[facility] MG tablet 00:00: (two) 00 times a day. donepezil 2020-0 Yes 5mg Q.5D Take 5 mg [facility] (Aricept) 5 5-11 by mouth 2 He al[facility] MG tablet 00:00: (two) 00 times a day. donepezil 2020-0 Yes 5mg Q.5D Take 5 mg [facility] (Aricept) 5 5-11 by mouth 2 He alth MG tablet 00:00: (two) 00 times a day. donepezil 2020-0 Yes 5mg Q.5D Take 5 mg [facility] (Aricept) 5 5-11 by mouth 2 He alth MG tablet 00:00: (two) 00 times a day. omega-3 Yes [facility] (Fish Oil) 01-26 [facility] 1200 MG 17:58: capsule 37 omega-3 Yes [facility] (Fish Oil) 01-26 [facility] 1200 MG 17:58: capsule 37 omega-3 Yes [facility] (Fish Oil) 01-26 Health 1200 MG 17:58: capsule 37 multivitami Yes [facility] n-iron-mine 01-26 Health rals-folic 17:58: acid 36 (Centrum Silver, geriatric,) tablet multivitami Yes [facility] n-iron-mine 01-26 Health rals-folic 17:58: acid 36 (Centrum Silver, geriatric,) tablet multivitami Yes [facility] n-iron-mine 01-26 Health rals-folic 17:58: acid 36 (Centrum Silver, geriatric,) tablet fexofenadin Yes [facility] e-pseudoeph 01-26 Health edrine ER 17:58: (Bibi-D 35 24) 180-240 MG 24 hr tablet albuterol Yes [facility] (Proventil 01-26 Health HFA) 108 17:58: (90 Base) 35 MCG/ACT inhaler betamethaso Yes [facility] ne 01-26 Health dipropionat 17:58: e 35 (Diprolene) 0.05 % cream fexofenadin Yes [facility] e-pseudoeph 01-26 Health edrine ER 17:58: (Bibi-D 35 24) 180-240 MG 24 hr tablet albuterol Yes [facility] (Proventil 01-26 Health HFA) 108 17:58: (90 Base) 35 MCG/ACT inhaler betamethaso Yes [facility] ne 01-26 Health dipropionat 17:58: e 35 (Diprolene) 0.05 % cream fexofenadin Yes [facility] e-pseudoeph 01-26 Health edrine ER 17:58: (Bibi-D 35 24) 180-240 MG 24 hr tablet albuterol Yes [facility] (Proventil 01-26 Health HFA) 108 17:58: (90 Base) 35 MCG/ACT inhaler betamethaso Yes [facility] ne 01-26 Health dipropionat 17:58: e 35 (Diprolene) 0.05 % cream omega-3 Yes [facility] (Fish Oil) 01-26 [facility] 1200 MG 12:58: capsule 37 omega-3 Yes [facility] (Fish Oil) 01-26 [facility] 1200 MG 12:58: capsule 37 omega-3 Yes [facility] (Fish Oil) 01-26 [facility] 1200 MG 12:58: capsule 37 omega-3 Yes [facility] (Fish Oil) 01-26 [facility] 1200 MG 12:58: capsule 37 omega-3 Yes [facility] (Fish Oil) 01-26 [facility] 1200 MG 12:58: capsule 37 omega-3 Yes [facility] (Fish Oil) 01-26 [facility] 1200 MG 12:58: capsule 37 omega-3 Yes [facility] (Fish Oil) 01-26 [facility] 1200 MG 12:58: capsule 37 omega-3 Yes [facility] (Fish Oil) 01-26 [facility] 1200 MG 12:58: capsule 37 multivitami Yes [facility] n-iron-mine 01-26 Health rals-folic 12:58: acid 36 (Centrum Silver, geriatric,) tablet multivitami Yes [facility] n-iron-mine 01-26 Health rals-folic 12:58: acid 36 (Centrum Silver, geriatric,) tablet multivitami Yes [facility] n-iron-mine 01-26 Health rals-folic 12:58: acid 36 (Centrum Silver, geriatric,) tablet multivitami Yes [facility] n-iron-mine 01-26 Health rals-folic 12:58: acid 36 (Centrum Silver, geriatric,) tablet multivitami Yes [facility] n-iron-mine 01-26 Health rals-folic 12:58: acid 36 (Centrum Silver, geriatric,) tablet multivitami Yes [facility] n-iron-mine 01-26 Health rals-folic 12:58: acid 36 (Centrum Silver, geriatric,) tablet multivitami Yes [facility] n-iron-mine 01-26 Health rals-folic 12:58: acid 36 (Centrum Silver, geriatric,) tablet multivitami Yes [facility] n-iron-mine 01-26 Health rals-folic 12:58: acid 36 (Centrum Silver, geriatric,) tablet fexofenadin Yes [facility] e-pseudoeph 01-26 Health edrine ER 12:58: (Bibi-D 35 24) 180-240 MG 24 hr tablet albuterol Yes [facility] (Proventil 01-26 Health HFA) 108 12:58: (90 Base) 35 MCG/ACT inhaler betamethaso Yes [facility] ne 01-26 Health dipropionat 12:58: e 35 (Diprolene) 0.05 % cream fexofenadin Yes [facility] e-pseudoeph 01-26 Health edrine ER 12:58: (Bibi-D 35 24) 180-240 MG 24 hr tablet fexofenadin Yes [facility] e-pseudoeph 01-26 Health edrine ER 12:58: (Bibi-D 35 24) 180-240 MG 24 hr tablet albuterol Yes [facility] (Proventil 01-26 Health HFA) 108 12:58: (90 Base) 35 MCG/ACT inhaler betamethaso Yes [facility] ne 01-26 [facility] dipropionat 12:58: e 35 (Diprolene) 0.05 % cream fexofenadin Yes [facility] e-pseudoeph 01-26 Health edrine ER 12:58: (Bibi-D 35 24) 180-240 MG 24 hr tablet albuterol 0 Yes [facility] (Proventil 01-26 Health HFA) 108 12:58: (90 Base) 35 MCG/ACT inhaler betamethaso 0 Yes [facility] ne 01-26 [facility] dipropionat 12:58: e 35 (Diprolene) 0.05 % cream fexofenadin Yes [facility] e-pseudoeph 01-26 Health edrine ER 12:58: (Bibi-D 35 24) 180-240 MG 24 hr tablet albuterol 0 Yes [facility] (Proventil 01-26 Health HFA) 108 12:58: (90 Base) 35 MCG/ACT inhaler betamethaso 0 Yes [facility] ne 01-26 Health dipropionat 12:58: e 35 (Diprolene) 0.05 % cream fexofenadin Yes [facility] e-pseudoep 01-26 Health edrine ER 12:58: (Bibi-D 35 24) 180-240 MG 24 hr tablet albuterol 0 Yes [facility] (Proventil 01-26 Health HFA) 108 12:58: (90 Base) 35 MCG/ACT inhaler albuterol 0 Yes [facility] (Proventil 01-26 Health HFA) 108 12:58: (90 Base) 35 MCG/ACT inhaler fexofenadin 0 Yes [facility] e-pseudoep 01-26 Health edrine ER 12:58: (Bibi-D 35 24) 180-240 MG 24 hr tablet albuterol 0 Yes [facility] (Proventil 01-26 Health HFA) 108 12:58: (90 Base) 35 MCG/ACT inhaler betamethaso 0 Yes [facility] ne 01-26 Health dipropionat 12:58: e 35 (Diprolene) 0.05 % cream betamethaso 0 Yes [facility] ne 01-26 [facility] dipropionat 12:58: e 35 (Diprolene) 0.05 % cream fexofenadin 0 Yes [facility] e-pseudoeph 01-26 Health edrine ER 12:58: (Bibi-D 35 24) 180-240 MG 24 hr tablet albuterol 0 Yes UT (Proventil 01-26 Health HFA) 108 12:58: (90 Base) 35 MCG/ACT inhaler betamethaso Yes [facility] ne 01-26 [facility] dipropionat 12:58: e 35 (Diprolene) 0.05 % cream betamethaso Yes [facility] ne 01-26 [facility] dipropionat 12:58: e 35 (Diprolene) 0.05 % cream simvastatin Yes 1 (one) [facility] (Zocor) 40 4-13 time each Heal th MG tablet 00:00: day in the 00 evening. simvastatin 2020-0 Yes 1 (one) [facility] (Zocor) 40 4-13 time each Heal th MG tablet 00:00: day in the 00 evening. simvastatin 2020-0 Yes 1 (one) [facility] (Zocor) 40 4-13 time each Heal th MG tablet 00:00: day in the 00 evening. simvastatin 2020-0 Yes 1 (one) [facility] (Zocor) 40 4-13 time each Heal th MG tablet 00:00: day in the 00 evening. simvastatin 2020-0 Yes 1 (one) [facility] (Zocor) 40 4-13 time each Heal th MG tablet 00:00: day in the 00 evening. simvastatin 2020-0 Yes 1 (one) [facility] (Zocor) 40 4-13 time each Heal th MG tablet 00:00: day in the 00 evening. simvastatin 2020-0 Yes 1 (one) [facility] (Zocor) 40 4-13 time each Heal th MG tablet 00:00: day in the 00 evening. simvastatin 2020-0 Yes 1 (one) [facility] (Zocor) 40 4-13 time each Heal th MG tablet 00:00: day in the 00 evening. simvastatin 2020-0 Yes 1 (one) [facility] (Zocor) 40 4-13 time each Heal th MG tablet 00:00: day in the 00 evening. simvastatin 2020-0 Yes 1 (one) [facility] (Zocor) 40 4-13 time each Heal th MG tablet 00:00: day in the 00 evening. Vascepa 1 g Yes TAKE 2 [facility] capsule 4-06 CAPSULES Health 00:00: BY MOUTH 00 TWICE A DAY WITH FOOD (SWALLOW WHOLE, DONT CHEW, CRUSH, OR DISSOLVE) Vascepa 1 g Yes TAKE 2 [facility] capsule 4-06 CAPSULES Health 00:00: BY MOUTH 00 TWICE A DAY WITH FOOD (SWALLOW WHOLE, DONT CHEW, CRUSH, OR DISSOLVE) Vascepa 1 g 0 Yes TAKE 2 [facility] capsule 4-06 CAPSULES Health 00:00: BY MOUTH 00 TWICE A DAY WITH FOOD (SWALLOW WHOLE, DONT CHEW, CRUSH, OR DISSOLVE) Vascepa 1 g Yes TAKE 2 [facility] capsule 4-06 CAPSULES Health 00:00: BY MOUTH 00 TWICE A DAY WITH FOOD (SWALLOW WHOLE, DONT CHEW, CRUSH, OR DISSOLVE) Vascepa 1 g Yes TAKE 2 [facility] capsule 4-06 CAPSULES Health 00:00: BY MOUTH 00 TWICE A DAY WITH FOOD (SWALLOW WHOLE, DONT CHEW, CRUSH, OR DISSOLVE) Vascepa 1 g Yes TAKE 2 [facility] capsule 4-06 CAPSULES Health 00:00: BY MOUTH 00 TWICE A DAY WITH FOOD (SWALLOW WHOLE, DONT CHEW, CRUSH, OR DISSOLVE) Vascepa 1 g Yes TAKE 2 [facility] capsule 4-06 CAPSULES Health 00:00: BY MOUTH 00 TWICE A DAY WITH FOOD (SWALLOW WHOLE, DONT CHEW, CRUSH, OR DISSOLVE) Vascepa 1 g Yes TAKE 2 [facility] capsule 4-06 CAPSULES Health 00:00: BY MOUTH 00 TWICE A DAY WITH FOOD (SWALLOW WHOLE, DONT CHEW, CRUSH, OR DISSOLVE) Vascepa 1 g Yes TAKE 2 [facility] capsule 4-06 CAPSULES Health 00:00: BY MOUTH 00 TWICE A DAY WITH FOOD (SWALLOW WHOLE, DONT CHEW, CRUSH, OR DISSOLVE) Vascepa 1 g Yes TAKE 2 [facility] capsule 4-06 CAPSULES Health 00:00: BY MOUTH 00 TWICE A DAY WITH FOOD (SWALLOW WHOLE, DONT CHEW, CRUSH, OR DISSOLVE) Tabitha 2020- Yes 1[drp] Administer [facility] 0.01 % 3-28 1 drop Health ophthalmic 00:00: into both solution 00 eyes every night. Tabitha 2020-0 Yes 1[drp] Administer [facility] 0.01 % 3-28 1 drop Health ophthalmic 00:00: into both solution 00 eyes every night. Tabitha 2020-0 Yes 1[drp] Administer [facility] 0.01 % 3-28 1 drop Health ophthalmic 00:00: into both solution 00 eyes every night. Tabitha 2020-0 Yes 1[drp] Administer [facility] 0.01 % 3-28 1 drop Health ophthalmic 00:00: into both solution 00 eyes every night. Tabitha 2020-0 Yes 1[drp] Administer [facility] 0.01 % 3-28 1 drop Health ophthalmic 00:00: into both solution 00 eyes every night. Tabitha 2020-0 Yes 1[drp] Administer [facility] 0.01 % 3-28 1 drop Health ophthalmic 00:00: into both solution 00 eyes every night. Tabitha 2020-0 Yes 1[drp] Administer [facility] 0.01 % 3-28 1 drop Health ophthalmic 00:00: into both solution 00 eyes every night. Tabitha 2020-0 Yes 1[drp] Administer [facility] 0.01 % 3-28 1 drop Health ophthalmic 00:00: into both solution 00 eyes every night. Tabitha 2020-0 Yes 1[drp] Administer [facility] 0.01 % 3-28 1 drop Health ophthalmic 00:00: into both solution 00 eyes every night. Tabitha 2020-0 Yes 1[drp] Administer [facility] 0.01 % 3-28 1 drop Health ophthalmic 00:00: into both solution 00 eyes every night. omeprazole 2020-0 Yes 20mg 20 mg. [facility] (PriLOSEC) 2-[address] 00:00: capsule 00 aspirin 81 1-0 Yes 81mg 81 mg. [facility] MG EC 2- Health tablet 00:00: 00 omeprazole 1-0 Yes 20mg 20 mg. [facility] (PriLOSEC) 2-[address] 00:00: capsule 00 aspirin 81 2021-0 Yes 81mg 81 mg. [facility] MG EC 2-26 Health tablet 00:00: 00 omeprazole 2021-0 Yes 20mg 20 mg. [facility] (PriLOSEC) 2-[address] 00:00: capsule 00 aspirin 81 2021-0 Yes 81mg 81 mg. [facility] MG EC 2-26 Health tablet 00:00: 00 omeprazole 2021-0 Yes 20mg 20 mg. [facility] (PriLOSEC) 2-[address] 00:00: capsule 00 aspirin 81 1-0 Yes 81mg 81 mg. [facility] MG EC 2-26 Health tablet 00:00: 00 omeprazole 2021-0 Yes 20mg 20 mg. [facility] (PriLOSEC) 2- Health [address] 00:00: capsule 00 aspirin 81 2020-0 Yes 81mg 81 mg. [facility] MG EC 2- Health tablet 00:00: 00 budesonide- 202-0 Yes DAILY UT formoterol 2- Health (Symbicort) 00:00: 160-4.5 00 MCG/ACT inhaler omeprazole 2020-0 Yes 20mg 20 mg. [facility] (PriLOSEC) 11-[address] 00:00: capsule 00 aspirin 81 2020-0 Yes 81mg 81 mg. [facility] MG EC 2- Health tablet 00:00: 00 budesonide- 2020-0 Yes DAILY [facility] formoterol - Health (Symbicort) 00:00: 160-4.5 00 MCG/ACT inhaler omeprazole 2020-0 Yes 20mg 20 mg. [facility] (PriLOSEC) 11-[address] 00:00: capsule 00 omeprazole 2020-0 Yes 20mg 20 mg. [facility] (PriLOSEC) 11-[address] 00:00: capsule 00 aspirin 81 2020-0 Yes 81mg 81 mg. [facility] MG EC - Health tablet 00:00: 00 budesonide- 2020-0 Yes DAILY [facility] formoterol - Health (Symbicort) 00:00: 160-4.5 00 MCG/ACT inhaler omeprazole 2020-0 Yes 20mg 20 mg. [facility] (PriLOSEC) 2- Health [address] 00:00: capsule 00 aspirin 81 2020-0 Yes 81mg 81 mg. [facility] MG EC 2- Health tablet 00:00: 00 omeprazole 202-0 Yes 20mg 20 mg. [facility] (PriLOSEC) 2- Health [address] 00:00: capsule 00 aspirin 81 202-0 Yes 81mg 81 mg. [facility] MG EC 2-26 Health tablet 00:00: 00 aspirin 81 202-0 Yes 81mg 81 mg. [facility] MG EC 2-26 Health tablet 00:00: 00 budesonide- 2021-0 Yes DAILY UT formoterol 2-26 Health (Symbicort) 00:00: 160-4.5 00 MCG/ACT inhaler hydrocortis 2020-0 Yes UNWRAP AND UT one 7-01 INSERT 1 Health (Anusol-HC) 00:00: SUPPOSITOR 25 MG 00 Y IN THE suppository RECTUM DAILY hydrocortis 2020-0 Yes UNWRAP AND UT one 03-28 INSERT 1 Health (Anusol-HC) 00:00: SUPPOSITOR 25 MG 00 Y IN THE suppository RECTUM DAILY hydrocortis 2020-0 Yes UNWRAP AND UT one 03-28 INSERT 1 Health (Anusol-HC) 00:00: SUPPOSITOR 25 MG 00 Y IN THE suppository RECTUM DAILY hydrocortis 2020-0 Yes UNWRAP AND UT one 03-28 INSERT 1 Health (Anusol-HC) 00:00: SUPPOSITOR 25 MG 00 Y IN THE suppository RECTUM DAILY hydrocortis 2020-0 Yes UNWRAP AND UT one 03-28 INSERT 1 Health (Anusol-HC) 00:00: SUPPOSITOR 25 MG 00 Y IN THE suppository RECTUM DAILY hydrocortis 2020-0 Yes UNWRAP AND UT one 03-28 INSERT 1 Health (Anusol-HC) 00:00: SUPPOSITOR 25 MG 00 Y IN THE suppository RECTUM DAILY hydrocortis 2020-0 Yes UNWRAP AND UT one 03-28 INSERT 1 Health (Anusol-HC) 00:00: SUPPOSITOR 25 MG 00 Y IN THE suppository RECTUM DAILY hydrocortis 2020-0 Yes UNWRAP AND UT one 03-28 INSERT 1 Health (Anusol-HC) 00:00: SUPPOSITOR 25 MG 00 Y IN THE suppository RECTUM DAILY hydrocortis 2020-0 Yes UNWRAP AND UT one 03-28 INSERT 1 Health (Anusol-HC) 00:00: SUPPOSITOR 25 MG 00 Y IN THE suppository RECTUM DAILY hydrocortis 2020-0 Yes UNWRAP AND UT one 03-28 INSERT 1 Health (Anusol-HC) 00:00: SUPPOSITOR 25 MG 00 Y IN THE suppository RECTUM DAILY Mirabegron 2020-0 Yes TAKE 1 UT ER 3-30 TABLET Health (Myrbetriq) 00:00: BEDTIME 25 MG 00 tablet sustained-r elease 24 hour Mirabegron 2020-0 Yes TAKE 1 UT ER 3-30 TABLET Health (Myrbetriq) 00:00: BEDTIME 25 MG 00 tablet sustained-r elease 24 hour Mirabegron 2020-0 2020- No TAKE 1 UT ER 3-30 08-18 TABLET Health (Myrbetriq) 00:00: 00:00 BEDTIME 25 MG 00 :00 tablet sustained-r elease 24 hour budesonide- 0 Yes INHALE 2 UT formoterol 5-02 PUFFS Health (Symbicort) 00:00: TWICE 80-4.5 00 DAILY. MCG/ACT RINSE inhaler MOUTH AFTER USE. losartan-hy Yes TAKE 1 UT droCHLOROth 5-02 TABLET Health iazide 00:00: DAILY. (Hyzaar) 00 100-12.5 MG tablet Azelastine 0 Yes INSERT 2 UT HCl 137 5-02 SQUIRTS IN Health MCG/SPRAY 00:00: EACH solution 00 NOSTRIL TWICE DAILY budesonide- Yes INHALE 2 UT formoterol 5-02 PUFFS Health (Symbicort) 00:00: TWICE 80-4.5 00 DAILY. MCG/ACT RINSE inhaler MOUTH AFTER USE. losartan-hy Yes TAKE 1 UT droCHLOROth 5-02 TABLET Health iazide 00:00: DAILY. (Hyzaar) 00 100-12.5 MG tablet Azelastine 0 Yes INSERT 2 UT HCl 137 5-02 SQUIRTS IN Health MCG/SPRAY 00:00: EACH solution 00 NOSTRIL TWICE DAILY budesonide- Yes INHALE 2 UT formoterol 5-02 PUFFS Health (Symbicort) 00:00: TWICE 80-4.5 00 DAILY. MCG/ACT RINSE inhaler MOUTH AFTER USE. losartan-hy Yes TAKE 1 UT droCHLOROth 5-02 TABLET Health iazide 00:00: DAILY. (Hyzaar) 00 100-12.5 MG tablet Azelastine 2018-0 Yes INSERT 2 UT HCl 137 5-02 SQUIRTS IN Health MCG/SPRAY 00:00: EACH solution 00 NOSTRIL TWICE DAILY budesonide- 2018-0 Yes INHALE 2 UT formoterol 5-02 PUFFS Health (Symbicort) 00:00: TWICE 80-4.5 00 DAILY. MCG/ACT RINSE inhaler MOUTH AFTER USE. losartan-hy Yes TAKE 1 UT droCHLOROth 5-02 TABLET Health iazide 00:00: DAILY. (Hyzaar) 00 100-12.5 MG tablet Azelastine 2019-0 Yes INSERT 2 UT HCl 137 5-02 SQUIRTS IN Health MCG/SPRAY 00:00: EACH solution 00 NOSTRIL TWICE DAILY budesonide- 2019-0 Yes INHALE 2 UT formoterol 5-02 PUFFS Health (Symbicort) 00:00: TWICE 80-4.5 00 DAILY. MCG/ACT RINSE inhaler MOUTH AFTER USE. losartan-hy 2019-0 Yes TAKE 1 UT droCHLOROth 5-02 TABLET Health iazide 00:00: DAILY. (Hyzaar) 00 100-12.5 MG tablet Azelastine 2019-0 Yes INSERT 2 UT HCl 137 5-02 SQUIRTS IN Health MCG/SPRAY 00:00: EACH solution 00 NOSTRIL TWICE DAILY budesonide- 2019-0 Yes INHALE 2 UT formoterol 5-02 PUFFS Health (Symbicort) 00:00: TWICE 80-4.5 00 DAILY. MCG/ACT RINSE inhaler MOUTH AFTER USE. losartan-hy 2018-0 Yes TAKE 1 UT droCHLOROth 5-02 TABLET Health iazide 00:00: DAILY. (Hyzaar) 00 100-12.5 MG tablet Azelastine 2019-0 Yes INSERT 2 UT HCl 137 5-02 SQUIRTS IN Health MCG/SPRAY 00:00: EACH solution 00 NOSTRIL TWICE DAILY budesonide- 2019-0 Yes INHALE 2 UT formoterol 5-02 PUFFS Health (Symbicort) 00:00: TWICE 80-4.5 00 DAILY. MCG/ACT RINSE inhaler MOUTH AFTER USE. losartan-hy 2019-0 Yes TAKE 1 UT droCHLOROth 5-02 TABLET Health iazide 00:00: DAILY. (Hyzaar) 00 100-12.5 MG tablet Azelastine 2019-0 Yes INSERT 2 UT HCl 137 5-02 SQUIRTS IN Health MCG/SPRAY 00:00: EACH solution 00 NOSTRIL TWICE DAILY Azelastine 2019-0 Yes INSERT 2 UT HCl 137 5-02 SQUIRTS IN Health MCG/SPRAY 00:00: EACH solution 00 NOSTRIL TWICE DAILY Azelastine 2019-0 Yes INSERT 2 UT HCl 137 5-02 SQUIRTS IN Health MCG/SPRAY 00:00: EACH solution 00 NOSTRIL TWICE DAILY budesonide- 2018- Yes INHALE 2 UT formoterol 5-02 PUFFS Health (Symbicort) 00:00: TWICE 80-4.5 00 DAILY. MCG/ACT RINSE inhaler MOUTH AFTER USE. losartan-hy Yes TAKE 1 UT droCHLOROth 5-02 TABLET Health iazide 00:00: DAILY. (Hyzaar) 00 100-12.5 MG tablet budesonide- 2018-0 Yes INHALE 2 UT formoterol 5-02 PUFFS Health (Symbicort) 00:00: TWICE 80-4.5 00 DAILY. MCG/ACT RINSE inhaler MOUTH AFTER USE. losartan-hy Yes TAKE 1 UT droCHLOROth 5-02 TABLET Health iazide 00:00: DAILY. (Hyzaar) 00 100-12.5 MG tablet Azelastine 0 Yes INSERT 2 UT HCl 137 5-02 SQUIRTS IN Health MCG/SPRAY 00:00: EACH solution 00 NOSTRIL TWICE DAILY budesonide- Yes INHALE 2 UT formoterol 5-02 PUFFS Health (Symbicort) 00:00: TWICE 80-4.5 00 DAILY. MCG/ACT RINSE inhaler MOUTH AFTER USE. losartan-hy Yes TAKE 1 UT droCHLOROth 5-02 TABLET Health iazide 00:00: DAILY. (Hyzaar) 00 100-12.5 MG tablet Azelastine 0 Yes INSERT 2 UT HCl 137 5-02 SQUIRTS IN Health MCG/SPRAY 00:00: EACH solution 00 NOSTRIL TWICE DAILY budesonide- Yes INHALE 2 UT formoterol 5-02 PUFFS Health (Symbicort) 00:00: TWICE 80-4.5 00 DAILY. MCG/ACT RINSE inhaler MOUTH AFTER USE. losartan-hy Yes TAKE 1 UT droCHLOROth 5-02 TABLET Health iazide 00:00: DAILY. (Hyzaar) 00 100-12.5 MG tablet levothyroxi 2016-0 Yes UT ne 7-14 [facility] (Synthroid, 00:00: Levoxyl) 50 00 MCG tablet levothyroxi 2016- Yes UT ne 7-14 [facility] (Synthroid, 00:00: Levoxyl) 50 00 MCG tablet levothyroxi 2017-0 Yes UT ne 7-14 [facility] (Synthroid, 00:00: Levoxyl) 50 00 MCG tablet levothyroxi 2017-0 Yes UT ne 7-14 [facility] (Synthroid, 00:00: Levoxyl) 50 00 MCG tablet levothyroxi 2017-0 Yes UT ne 7-14 [facility] (Synthroid, 00:00: Levoxyl) 50 00 MCG tablet levothyroxi 2017-0 Yes UT ne 7-14 Health (Synthroid, 00:00: Levoxyl) 50 00 MCG tablet levothyroxi 2017-0 Yes UT ne 7-14 [facility] (Synthroid, 00:00: Levoxyl) 50 00 MCG tablet levothyroxi 2017-0 Yes UT ne 7-14 [facility] (Synthroid, 00:00: Levoxyl) 50 00 MCG tablet levothyroxi 2017-0 Yes UT ne 7-14 [facility] (Synthroid, 00:00: Levoxyl) 50 00 MCG tablet levothyroxi 2017-0 Yes UT ne 7-14 [facility] (Synthroid, 00:00: Levoxyl) 50 00 MCG tablet levothyroxi 2017-0 Yes UT ne 7-14 [facility] (Synthroid, 00:00: Levoxyl) 50 00 MCG tablet estradiol 2015-0 Yes USE TWICE UT (Estrace) 5-10 WEEKLY Healt h 0.1 MG/GM 00:00: DIRECTED. vaginal 00 cream estradiol 2015-0 2020- No USE TWICE [facility] (Estrace) 5-10 06-24 WEEKLY Heal th 0.1 MG/GM 00:00: 00:00 DIRECTED. vaginal 00 :00 cream Brinzolamid 2015-0 Yes UT e-Brimonidi 4-15 Health ne 00:00: (Simbrinza) 00 1-0.2 % suspension escitalopra 2015-0 Yes UT m (Lexapro) 4-15 Health 10 MG 00:00: tablet 00 Brinzolamid 2015-0 Yes UT e-Brimonidi 4-15 Health ne 00:00: (Simbrinza) 00 1-0.2 % suspension escitalopra 2015-0 Yes UT m (Lexapro) 4-15 Health 10 MG 00:00: tablet 00 escitalopra 2015-0 Yes UT m (Lexapro) 4-15 Health 10 MG 00:00: tablet 00 escitalopra 2016-0 Yes UT m (Lexapro) 4-15 Health 10 MG 00:00: tablet 00 escitalopra 2016-0 Yes UT m (Lexapro) 4-15 Health 10 MG 00:00: tablet 00 escitalopra 2016-0 Yes UT m (Lexapro) 4-15 Health 10 MG 00:00: tablet 00 escitalopra 2016-0 Yes UT m (Lexapro) 4-15 Health 10 MG 00:00: tablet 00 escitalopra 2016-0 Yes UT m (Lexapro) 4-15 Health 10 MG 00:00: tablet 00 escitalopra 2016-0 Yes UT m (Lexapro) 4-15 Health 10 MG 00:00: tablet 00 escitalopra 2016-0 Yes UT m (Lexapro) 4-15 Health 10 MG 00:00: tablet 00 escitalopra 2016-0 Yes UT m (Lexapro) 4-15 Health 10 MG 00:00: tablet 00 Brinzolamid 0 2020- No UT e-Brimonidi 4-15 08-18 Health ne 00:00: 00:00 (Simbrinza) 00 :00 1-0.2 % suspension metFORMIN 2013-09 Yes UT XR 0-16 [facility] (Glucophage 00:00: -XR) 750 MG 00 24 hr tablet metFORMIN 2013-09 Yes [facility] XR 0-16 [facility] (Glucophage 00:00: -XR) 750 MG 00 24 hr tablet metFORMIN 2013-09 Yes UT XR 0-16 [facility] (Glucophage 00:00: -XR) 750 MG 00 24 hr tablet metFORMIN 2013-09 Yes UT XR 0-16 [facility] (Glucophage 00:00: -XR) 750 MG 00 24 hr tablet metFORMIN 2013-09 Yes UT XR 0-16 [facility] (Glucophage 00:00: -XR) 750 MG 00 24 hr tablet metFORMIN 2013-09 Yes UT XR 0-16 Health (Glucophage 00:00: -XR) 750 MG 00 24 hr tablet metFORMIN 2013-09 Yes UT XR 0-16 Health (Glucophage 00:00: -XR) 750 MG 00 24 hr tablet metFORMIN 2013-09 Yes UT XR 0-16 Health (Glucophage 00:00: -XR) 750 MG 00 24 hr tablet metFORMIN 2013-09 Yes UT XR 0-16 Health (Glucophage 00:00: -XR) 750 MG 00 24 hr tablet metFORMIN 2013-09 Yes UT XR 0-16 [facility] (Glucophage 00:00: -XR) 750 MG 00 24 hr tablet metFORMIN 2013-09 Yes UT XR 0-16 [facility] (Glucophage 00:00: -XR) 750 MG 00 24 hr tablet Mirabegron Yes TAKE 1 UT ER 3-05 TABLET Health (Myrbetriq) 00:00: DAILY 50 MG 00 tablet sustained-r elease 24 hour Mirabegron Yes TAKE 1 UT ER 3-05 TABLET Health (Myrbetriq) 00:00: DAILY 50 MG 00 tablet sustained-r elease 24 hour Mirabegron Yes TAKE 1 UT ER 3-05 TABLET Health (Myrbetriq) 00:00: DAILY 50 MG 00 tablet sustained-r elease 24 hour Mirabegron Yes TAKE 1 UT ER 3-05 TABLET Health (Myrbetriq) 00:00: DAILY 50 MG 00 tablet sustained-r elease 24 hour Mirabegron Yes TAKE 1 UT ER 3-05 TABLET Health (Myrbetriq) 00:00: DAILY 50 MG 00 tablet sustained-r elease 24 hour Mirabegron Yes TAKE 1 UT ER 3-05 TABLET Health (Myrbetriq) 00:00: DAILY 50 MG 00 tablet sustained-r elease 24 hour Mirabegron Yes TAKE 1 UT ER 3-05 TABLET Health (Myrbetriq) 00:00: DAILY 50 MG 00 tablet sustained-r elease 24 hour Mirabegron Yes TAKE 1 UT ER 3-05 TABLET Health (Myrbetriq) 00:00: DAILY 50 MG 00 tablet sustained-r elease 24 hour Mirabegron Yes TAKE 1 UT ER 3-05 TABLET Health (Myrbetriq) 00:00: DAILY 50 MG 00 tablet sustained-r elease 24 hour Mirabegron 2021- No TAKE 1 UT ER 3-05 06-10 TABLET Health (Myrbetriq) 00:00: 00:00 DAILY 50 MG 00 :00 tablet sustained-r elease 24 hour clobetasol Yes APPLY UT (Temovate) 5-08 SPARINGLY Heal th 0.05 % 00:00: TO cream 00 AFFECTED AREA(S) TWICE DAILY clobetasol 2020- No APPLY UT (Temovate) 5-08 06-24 SPARINGLY Hea lth 0.05 % 00:00: 00:00 TO cream 00 :00 AFFECTED AREA(S) TWICE DAILY fenofibrate Yes UT (Tricor) -12 Health 145 MG 00:00: tablet 00 Aspirin Yes UT Buf,CaCarb- 10-09 Health MgCarb-MgO, 00:00: 81 MG 00 tablet fenofibrate Yes UT (Tricor) 10-09 Health 145 MG 00:00: tablet 00 Aspirin Yes UT Buf,CaCarb- 10-09 Health MgCarb-MgO, 00:00: 81 MG 00 tablet fenofibrate Yes UT (Tricor) 10-09 Health 145 MG 00:00: tablet 00 Aspirin Yes UT Buf,CaCarb- 10-09 Health MgCarb-MgO, 00:00: 81 MG 00 tablet Aspirin Yes UT Buf,CaCarb- 10-09 Health MgCarb-MgO, 00:00: 81 MG 00 tablet fenofibrate Yes UT (Tricor) 10-09 Health 145 MG 00:00: tablet 00 Aspirin Yes UT Buf,CaCarb- 10-09 Health MgCarb-MgO, 00:00: 81 MG 00 tablet fenofibrate Yes UT (Tricor) 10-09 Health 145 MG 00:00: tablet 00 Aspirin Yes [facility]CaCarb- 10-09 [facility] MgCarb-MgO, 00:00: 81 MG 00 tablet fenofibrate Yes [facility] ([facility]) 10-09 [facility] 145 MG 00:00: tablet 00 Aspirin Yes [facility],CaCarb- 12 [facility] MgCarb-MgO, 00:00: 81 MG 00 tablet fenofibrate Yes [facility] ([facility]) 10[facility]09 [facility] 145 MG 00:00: tablet 00 Aspirin Yes [facility],CaCarb- 12 [facility] MgCarb-MgO, 00:00: 81 MG 00 tablet Aspirin Yes [facility],CaCarb- 12 [facility] MgCarb-MgO, 00:00: 81 MG 00 tablet fenofibrate Yes [facility] ([facility]) 10[facility]09 [facility] 145 MG 00:00: tablet 00 fenofibrate Yes [facility] ([facility]) 10[facility]09 [facility] 145 MG 00:00: tablet 00 fenofibrate Yes [facility]09 [facility] 145 MG 00:00: tablet 00 Aspirin Yes [facility]Ca[facility]b- 10[facility]09 [facility] MgCarb-MgO, 00:00: 81 MG 00 tablet fenofibrate Yes [facility] ([facility]) 10-09 [facility] 145 MG 00:00: tablet 00 Aspirin Yes [facility]CaCarb- 10-09 [facility] MgCarb-MgO, 00:00: 81 MG 00 tablet Vital Signs Vital Name Observation Time Observation Value Comments Source Systolic blood 2023-06-15 18:48:00 131 mm[Hg] [facility] Diastolic blood 2023-06-15 18:48:00 74 [facility]Hg[facility]29:00 80 /min [facility] acute hospital Body temperature 2023-06-15 18:29:00 36.78 Gracie [facility] Respiratory rate 2023-06-15 18:29:00 18 /min [facility] Body height 2023-06-15 18:29:00 162.6 cm [facility] acute hospital Body weight 2023-06-15 18:29:00 70.761 kg [facility] acute hospital BMI 2023-06-15 18:29:00 26.78 kg/m2 [facility] acute hospital Systolic blood 2023-04-14 15:49:00 138 mm[Hg] [facility] Diastolic blood 2023-04-14 15:49:00 77 mm[facility]Hg[facility] 15:49:00 81 /min [facility] acute hospital Body temperature 2023-04-14 15:49:00 36.89 Gracie [facility] Respiratory rate 2023-04-14 15:49:00 18 /min [facility] Body height 2023-04-14 15:49:00 162.6 cm [facility] Body weight 2023-04-14 15:49:00 70.035 kg [facility] BMI 2023-04-14 15:49:00 26.50 kg/m2 [facility] [facility] Systolic blood 2023-04-06 16:05:00 135 mm[Hg] Univer sity of pressure [facility] Diastolic blood 2023-04-06 16:05:00 81 mm[Hg] Unive rsity of pressure [facility] Heart rate 2023-04-06 16:05:00 73 /min Universi ty of [facility] Body temperature 2023-04-06 16:05:00 36.44 Gracie [facility] Respiratory rate 2023-04-06 16:05:00 18 /min Univ ersity of [facility] Body height 2023-04-06 16:05:00 162.6 cm Universi ty [facility] Body weight 2023-04-06 16:05:00 70.852 kg Universi ty [facility] BMI 2023-04-06 16:05:00 26.81 kg/m2 Universi ty [facility] Systolic blood 2022-03-28 19:20:00 145 mm[Hg] [facility] Diastolic blood 2022-03-28 19:20:00 84 mm[Hg] [facility] Heart rate 2022-03-28 19:20:00 77 /min [facility] height 2022-03-28 19:20:00 157.5 cm [facility] Body weight 2022-03-28 19:20:00 75.751 [facility] BMI 2022-03-28 19:20:00 30.54 kg/m2 [facility] Systolic blood 2022-01-20 18:15:00 142 mm[Hg] [facility] Diastolic blood 2022-01-20 18:15:00 78 mm[Hg] [facility] Heart rate 2022-01-20 18:15:00 87 /min [facility] Body height 2022-01-20 18:15:00 157.5 cm [facility] Body weight 2022-01-20 18:15:00 73.029 [facility] BMI 2022-01-20 18:15:00 29.45 kg/m2 [facility] Systolic blood 2021-05-15 18:35:00 121 mm[Hg] [facility] Diastolic blood 2021-05-15 18:35:00 73 mm[Hg] [facility] Heart rate 2021-05-15 18:35:00 94 /min [facility] Body temperature 2021-05-15 18:35:00 36.11 Gracie [facility] Body height 2021-05-15 18:35:00 157.5 cm [facility] Body weight 2021-05-15 18:35:00 70.852 [facility] BMI 2021-05-15 18:35:00 28.57 kg/m2 [facility] Systolic blood 2021-03-21 14:26:00 125 mm[Hg] [facility] Diastolic blood 2021-03-21 14:26:00 72 mm[Hg] [facility] Heart rate 2021-03-21 14:26:00 81 /min [facility] Body height 2021-03-21 14:26:00 157.5 cm [facility] Body weight 2021-03-21 14:26:00 70.761 [facility] BMI 2021-03-21 14:26:00 28.53 [facility]m2 [facility] Procedures Procedure Date / Time Performed Performing Clinician [facility] e EXTERNAL PROVIDER 2023-04-17 05:01:00 Doctor Unassigned, No [facility] EXTERNAL PROVIDER 2023-04-07 05:01:00 Doctor Unassigned, No [facility] NOTICE OF BILLING 2023-02-25 14:45:48 Doctor Unassigned, No [facility] PRACTICES FOR MEDICARE Name [facility] PATIENTS ASSIGNMENT OF BENEFITS 2023-01-12 16:33:50 Doctor Unassigned, No [facility] POCT URINALYSIS 2022-03-28 19:41:00 Jhonatan Mejias [facility] DIPSTICK POCT URINALYSIS 2022-01-20 18:32:00 Mejias, [place] [facility] DIPSTICK POCT URINALYSIS 2021-05-15 18:59:00 Jhonatan Mejias [facility] DIPSTICK Plan of Care Planned Activity Planned Date Details Comments Source Future Scheduled 2023-07-25 COVID-19 VACCINE (#1) [facility] Test 00:27:27 [code = COVID-19 VACCINE (#1)] Future Scheduled 2023-07-25 SHINGLES VACCINES (1 [facility] Test 00:27:27 of 2) [code = SHINGLES VACCINES (1 of 2)] Future Scheduled 2023-07-25 65+ [facility]OCOCCAL [facility] 00:27:27 VACCINE (1 - PCV) [code = 65+ PNEUMOCOCCAL VACCINE (1 - PCV)] Future Scheduled 2023-07-25 INFLUENZA VACCINE (#1) [facility] Test 00:27:27 [code = INFLUENZA VACCINE (#1)] Future Scheduled 2022-05-31 COVID-19 VACCINE (#1) [facility] Test 01:07:25 [code = COVID-19 VACCINE (#1)] Future Scheduled 2022-05-31 SHINGLES VACCINES (1 [facility] Test 01:07:25 of 2) [code = SHINGLES VACCINES (1 of 2)] Future Scheduled 2022-05-31 65+ [facility]UMOCOCCAL [facility] Test 01:07:25 VACCINE (1 - PCV) [code = 65+ PNEUMOCOCCAL VACCINE (1 - PCV)] Future Scheduled 2022-05-31 INFLUENZA VACCINE [facility] Test 01:07:25 [code = INFLUENZA VACCINE] Future Scheduled 2022-05-31 HEPATITIS B VACCINES [facility] Test 01:07:25 (1 of 3 - 3-dose series) [code = HEPATITIS B VACCINES (1 of 3 - 3-dose series)] Future Scheduled COVID-19 VACCINE (1) [facility] Test [code = COVID-19 VACCINE (1)] Future Scheduled Hepatitis C screening [facility] Test (procedure) [code = 819546546] Future Scheduled [facility] [code = COLONOSCOPY SCREENING] Future Scheduled SHINGLES VACCINES (#1) [facility] Test [code = SHINGLES VACCINES (#1)] Future Scheduled 65+ PNEUMOCOCCAL [facility] Test VACCINE (1 of 1 - PPSV23) [code = 65+ PNEUMOCOCCAL VACCINE (1 of 1 - PPSV23)] Future Scheduled INFLUENZA VACCINE [facility] Test [code = INFLUENZA VACCINE] Encounters Start End Encounter Admission Attending Care Care Encounter Source Date/Time Date/Time Type Type Clinicians Facility Department ID 2023-03-23 Outpatient [facility] [id number] [place] 10:07:42 [id number] [facility] 2023-02-18 Outpatient [facility] [id number] [place] 19:21:20 [id number] [facility] 2023-02-17 Outpatient JoTrenton [facility] [id number] Common 13:39:02 [id number] [facility] 2023-01-28 Outpatient [facility] [id number] [place] 10:43:17 [id number] [facility] 2021-11-15 Outpatient MEJIAS, [facility] [id number] [place] 11:39:34 [facility] 2021-05-15 Outpatient MEJIAS, [facility] [id number] [place] 14:48:12 [facility] 2021-02-05 Outpatient DAMIAN, [facility] [id number] [place] 14:45:50 [facility] 2021-02-02 Outpatient PROMECENE-C [facility] [id number] [place] 04:05:59 CATRACHITA TURNER [facility] 2021-02-02 Outpatient MEJIAS, [facility] [id number] [place] 04:05:59 [facility] 2023-07-26 2023-07-26 Outpatient [id number] PRIV PRIV [id number] [facility] 00:00:00 00:00:00 diyala_S [id number] [facility] 2023-06-15 2023-06-15 Outpatient R LYUDMILA HUANG [facility] U TMB [id number] [facility] 13:30:00 14:07:33 LYUDMILA HUANG [facility] 2023-06-15 2023-06-15 Office Mabel [facility] [id number] [facility] 13:30:00 14:07:33 Visit [facility] 350.1.13.10 [facility] [place] [id number] Ia dical NAL 134 [facility] 2023-04-28 2023-04-28 Outpatient R CHERYL RIVAS [facility] [id number] Univers 09:00:00 09:00:00 CHERYL RIVAS itmelanie [facility] 2023-04-24 2023-04-24 [facility] [id number] Univers 00:00:00 00:00:00 Cheryl PIERO 350.1.13.10 i ty [place] [id number] Ia dicmo NAL 098 [facility] 2023-04-17 2023-04-17 Sign Language Translator 1, Adc Lab [facility] 1.2.840.114 [id number] Univers 14:45:00 15:00:00 Visit Brian Marin 350.1.13.10 ity [facility] [place] [id number] [facility] [address] 2023-04-17 2023-04-17 Outpatient R TOMAS [facility] [id number] Univers 14:45:00 14:45:00 BRIAN keyesmelanie [facility] 2023-04-17 2023-04-17 Orders Doctor JULI 1.2.840.114 [id number] Univers 00:00:00 00:00:00 Only Unassigned, HSERITA 350.1.13.10 ity of [place] [facility] 4.2.7.2.686 Juan Luis as [id number] [facility] 009 Branch 2023-04-14 2023-04-14 Office Albertina-Mihaela [facility] 1.2.840.114 [id number] Univers 10:00:00 11:28:17 Visit Lyudmila bruce 350.1.13.10 ity [facility] [place] [id number] Ia dical NAL 134 [facility] 2023-04-14 2023-04-14 Outpatient R LYUDMILA HUANG [facility] U TMB [id number] Univers 10:00:00 11:28:17 [facility] 2023-04-13 2023-04-13 Telephone [facility] 1.2.840.114 [id number] Univers 00:00:00 00:00:00 Cheryl HARRY 350.1.13.10 i ty [facility] 4.[place] [id number] [address] 2023-04-07 2023-04-07 Orders Doctor JULI 1.2.840.114 [id number] Univers 00:00:00 00:00:00 Only Unassigned, SHERITA 350.1.13.10 ity of [place] [facility] 4.2.7.2.686 Juan Luis as [id number] [address] 2023-04-06 2023-04-06 Outpatient R CHERYL RIVAS [facility] [id number] [facility] 11:00:00 12:01:58 CHERYL RIVAS [facility] 2023-04-06 2023-04-06 Office [facility] 1.2.840.114 [id number] Univers 11:00:00 12:01:58 Visit Cheryl HARRY 350.1.13.10 i ty [place] [id number] [address] 2023-03-25 2023-03-25 Outpatient PROMECENE-C [facility] [id number] [place] 09:30:00 09:30:00 CATRACHITA TURNER 2023-02-25 2023-02-25 Outpatient R CHERYL RIVAS [facility] [id number] Univers 10:00:00 09:55:43 DENYSCHERYL [facility] 2023-02-25 2023-02-25 Orders Doctor JULI 1.2.840.114 [id number] Univers 00:00:00 00:00:00 Only Unassigned, SHERITA 350.1.13.10 ity of [place] [facility] 4.2.7.2.686 Juan Luis as [id number] [address] 2023-01-20 2023-01-20 Letter Doctor JULI 1.2.840.114 [id number] Univers 00:00:00 00:00:00 (Out) Unassigned, SHERITA 350.1.13.10 ity of [place] [facility] 4.2.7.2.686 Juan Luis as [id number] [facility] 0[address] Branch 2023-01-12 2023-01-12 Orders Doctor BUSTOS 1.2.840.114 [id number] Univers 00:00:00 00:00:00 Only Unassigned, SHERITA 350.1.13.10 ity of [place] [facility] 4.2.7.2.686 Juan Luis as [id number] [facility] 009 Branch 2022-07-11 2022-07-11 Outpatient RANDELL [facility] [id number] [place] 13:45:00 13:45:00 [facility] 2022-03-28 2022-03-28 Office EKTA Mejias [id number] [id number] [place] 14:45:00 15:24:27 Visit [facility] 350.1.13.58 H [facility] 9.2.7.2.686 BUILDING [id number] 6 2022-03-07 2022-03-07 Telephone EKTA Echols 6410 1.2.840.114 [id number] [place] 00:00:00 00:00:[address] 350.1.13.58 Health 9.2.7.2.686 [id number] 0 2022-01-24 2022-01-24 Telephone Cande Navarromelanie DASH 1.2.840.1 14 [id number] [place] 00:00:00 00:00:00 Cande Navarromelanie OSWALD 350.1.13.58 Health MEDICAL 9.2.7.2.686 BUILDING [id number] 2022-01-20 2022-01-20 Office EKTA Mejias [id number] [id number] [place] 13:45:00 14:44:35 Visit [facility].1.13.58 [facility] 9.2.7.2.686 BUILDING [id number] 0 2021-06-14 2021-06-14 Orders Priscilla Rivera UTP 6410 1.2.840.114 [id number] [place] 00:00:00 00:00:[address] 350.1.13.58 Health 9.2.7.2.686 [id number] 7 2021-06-14 2021-06-14 Telephone Priscilla Rivera UTP 6410 1.2.840.1 14 [id number] [place] 00:00:00 00:00:[address] 350.1.13.58 Health 9.2.7.2.686 [id number] 7 2021-05-15 2021-05-15 Procedure Randell UTP 6410 1.2.840.114 1 [id number] [place] 12:36:55 14:48:[address] 350.1.13.58 Health 9.2.7.2.686 [id number] 1 2021-03-21 2021-03-21 Office Promkavita-Lazarus UTP 1.2.840.114 [id number] [place] 09:16:25 10:16:03 Visit Catrachita turner 350.1.13.58 Health MEDICAL 9.2.7.2.686 [facility] [id number] 6 2021-03-01 2021-03-01 Telephone Priscilla Rivera UTP 6410 1.2.840.1 14 [id number] [place] 00:00:00 00:00:[address] 350.1.13.58 Health 9.2.7.2.686 [id number] 7 2019-11-03 2019-12-03 OP Therapy nullFlavo SMR [id number] Memoria 18:49:00 05:59:00 Patients margarita Kirkland 07 ryan Wyatt 2019-09-29 2019-10-29 OP Therapy nullFlavo SMR [id number] Memoria 16:52:00 05:59:00 Patients margarita Kirkland 06 ryan Wyatt 2019-09-08 2019-09-28 OP Therapy nullFlavo SMR [id number] Memoria 18:00:00 02:00:00 Patients margarita Kirkland 05 ryan Wyatt 2019-07-21 2019-08-20 OP Therapy nullFlavo SMR [id number] Memoria 15:57:00 05:59:00 Patients margarita Kirkland 04 l Jose Wyatt 2019-06-16 2019-07-16 OP Therapy nullFlavo SMR [id number] Memoria 14:30:00 04:59:00 Patients margarita Kirkland 03 l Jose Wyatt 2019-05-12 2019-06-11 OP Therapy nullFlavo SMR [id number] Memoria 15:00:00 04:59:00 Patients margarita Kirkland 02 l Jose Wyatt 2019-04-04 2019-05-04 OP Therapy nullFlavo SMR [id number] Memoria 21:00:00 04:59:00 Patients margarita Kirkland 01 l Jose Wyatt 2019-03-01 2019-03-31 OP Therapy nullFlavo SMR [id number] Memoria 15:38:00 04:59:00 Patients margarita Kirkland 00 l Jose Wyatt Results Test Description Test Time Test Comments Results Result Comments Source Urine dip 2022-03-28 19:41:00 Test Item Value Reference Range Interpretation Comme nts Color, UA (test code = 1076) Yellow Clarity, UA (test code = Clear 8932828) Glucose, UA (test code = Negative Negative 3851847) Bilirubin, UA (test code = Negative Negative 4099177) Ketones, Urine (test code = Negative Negative, Trace 11077-5) Spec Grav, UA (test code = 495665405) Blood, UA (test code = Trace 971496369) pH, UA (test code = 4973431) 5.0-8.5 Protein, UA (test code = Negative Negative, Trace, 6964484) 200(+2)mg/dL, 15/mg/dL Urobilinogen, UA (test code See_Comment [Automated message] The = 8197401) system which ge nerated this result tra nsmitted reference range : 0.2. The reference r tarcy was not used to int erpret this result as normal/abnormal . Nitrite, UA (test code = Negative Negative, Trace 1972696) Leukocytes, UA (test code = Small Negative, Trace A 3289516) Lab Interpretation (test Abnormal code = 59775-2) [facility] [id number] 18:32:00 Test Item Value Reference Range Interpretation Comments Color, UA (test code = Yellow 1076) Clarity, UA (test code Clear = 6991794) Glucose, UA (test code Negative Negative = 0885288) Bilirubin, UA (test Negative Negative code = 0575584) Ketones, Urine (test Negative Negative, Trace code = 23642-4) Spec Grav, UA (test code = 506260928) Blood, UA (test code = Trace 702068504) pH, UA (test code = 5.0-8.5 2365959) Protein, UA (test code Negative Negative, Trace, = 0593544) 200(+2)mg/dL, 15/mg/dL Urobilinogen, UA (test See_Comment [Aut omated message] code = 6572140) The system [employer] generated this result transmit chepe reference range : 0.2. The refere nce range was not u sed to interpret th is result as normal/abnormal . Nitrite, UA (test code Negative Negative, Trace = 8727213) Leukocytes, UA (test Trace Negative, Trace code = 8320973) Lab Interpretation Abnormal (test code = 60480-3) [facility] urinalysis dipstick manually [id number] 18:59:00 Test Item Value Reference Range Interpretation Comments Color, UA (test code = Yellow 1076) Clarity, UA (test code Clear = 4125574) Glucose, UA (test code Negative Negative = 5464323) Bilirubin, UA (test Negative Negative code = 5195123) Ketones, Urine (test Negative Negative, Trace code = 22707-5) Spec Grav, UA (test code = 888667565) Blood, UA (test code = Negative 930302309) pH, UA (test code = 5.0-8.5 4334617) Protein, UA (test code Negative Negative, Trace, = 6864253) 200(+2)mg/dL, 15/mg/dL Urobilinogen, UA (test See_Comment [Aut omated message] code = 0946388) The system [employer] generated this result transmit chepe reference range : 0.2. The refere nce range was not u sed to interpret th is result as normal/abnormal . Nitrite, UA (test code Negative Negative, Trace = 0980213) Leukocytes, UA (test Trace Negative, Trace code = 4065660) Lab Interpretation Normal (test code = 16154-0) [facility]
[2023-08-09] MEDS ORDERED: NA CHLORIDE 0.9% 1,000 ML ONE ×2 (16:20→20:51)
[2023-08-09] MEDS ORDERED: ONDANSETRON 4 MG/2 ML VIAL ONE (16:20)
[2023-08-09] MEDS ORDERED: ALBUTEROL 2.5 MG/3 ML NEB SOL ONE ×2 (16:20→16:23)
[2023-08-09] MEDS ORDERED: IPRATROPIUM BROM 0.5MG/2.5ML ONE (16:20)
[2023-08-09 16:29] LABS: Absolute Lymphocytes (CBC) 1.3 K/uL (0.7-4.9); Hematocrit 43.6 % (36.0-45.0); Lymphocytes % 13.4 % (15.3-44.8); MCV 91.3 fL (80-100); MPV 7.8 fL (7.6-11.3); Platelets 345 thou/uL (152-406); RBC Red Blood Cell Count 4.77 M/uL (3.86-4.86)
[2023-08-09 16:54] LABS: Albumin 3.5 g/dL (3.4-5.0); Bilirubin Total 0.4 mg/dL (0.2-1.0); Potassium 3.8 mEq/L (3.5-5.1); Protein, Total 7.5 g/dL (6.4-8.2)
--- NOTE | 2023-08-09 17:18 | ER ---
Nurse's Notes [facility] Name: Carlene Padilla Age: 77 yrs Sex: Female : 1945 Arrival Date: 08/09/2023 Time: 15:20 Bed 16 Private MD: Diagnosis: COVID Presentation: 08/09 15:55 Chief complaint: EMS states: COVID positive x 5 days, generalized weakness, aa5 nausea/vomiting/diarrhea. EMS reports O2 sat 93-94% RA. Coronavirus screen: Client reports previous positive COVID test result. Ebola Screen: Patient denies travel to an Ebola-affected area in the 21 days before illness onset. Risk Assessment: Do you want to hurt yourself or someone else? Patient reports no desire to harm self or others. Onset of symptoms was July 2023. 15:55 Acuity: ZOHRA 3 aa5 15:55 Method Of Arrival: EMS: [facility] aa5 15:55 Initial Sepsis Screen: Does the patient meet any 2 criteria? No. Patient's initial aa5 sepsis screen is negative. Does the patient have a suspected source of infection? No. Patient's initial sepsis screen is negative. Historical: - Allergies: 15:56 codeine sulfate; aa5 15:56 Compazine; aa5 15:56 Naprosyn; aa5 16:06 Simbrinza; aa5 16:06 Codeine; aa5 - Home Meds: 16:06 aspirin 81 mg Oral TbEC 1 tab once daily [Active]; colestipol 1 gram oral tablet aa5 [Active]; Estradiol Oral [Active]; metformin 750 mg oral Tablet, Extended Release 24 hr [Active]; levothyroxine 50 mcg capsule once [Active]; omeprazole 20 mg Oral cpDR 1 cap once daily [Active]; losartan-hydrochlorothiazide 100-12.5 mg Oral tab 1 tab once daily [Active]; Vascepa 1 gram oral capsule [Active]; fluticasone propionate 50 mcg/actuation intranasal spray, suspension [Active]; clobetasol 0.05 % Topical cream [Active]; Estrace vaginal [Active]; Centrum Women oral [Active]; nebivolol 5 mg oral tablet [Active]; magnesium oxide 500 mg oral tablet [Active]; Symbicort 80-4.5 mcg/actuation inhalation HFAA 2 puffs 2 times per day [Active]; Bibi Oral [Active]; Crestor 40 mg oral tablet once [Active]; donepezil 5 mg oral tablet [Active]; Gemtesa 75 mg oral tablet [Active]; - PMHx: 15:56 Diabetes - NIDDM; Hyperlipidemia; Hypertension; aa5 16:17 Asthma; thyroid problem; aa5 - PSHx: 15:56 hysterectomy (Hypertension); aa5 - Immunization history:: Adult Immunizations up to date. - Social history:: Smoking status: Patient denies any tobacco usage or history of. Screenin:00 [facility] ED Fall Risk Assessment (Adult) History of falling in the last 3 months, rs5 including since admission No falls in past 3 months (0 pts) Confusion or Disorientation No (0 pts) Intoxicated or Sedated No (0 pts) Impaired Gait Yes (1 pt) Mobility Assist Device Used Yes (1 pt) Altered Elimination No (0 pt) Score/Fall Risk Level 0 - 2 = Low Risk Oriented to surroundings, Maintained a safe environment. Abuse screen: Denies threats or abuse. Nutritional screening: No deficits noted. Tuberculosis screening: No symptoms or risk factors identified. Assessment: 16:00 General: Appears in no apparent distress. comfortable, Behavior is calm, cooperative. rs5 Pain: Denies pain. Neuro: Level of Consciousness is awake, alert, obeys commands. Cardiovascular: Heart tones S1 S2 present Rhythm is regular. 16:00 Respiratory: Airway is patent Respiratory effort is even, unlabored, Respiratory rs5 pattern is regular, symmetrical, Breath sounds are clear bilaterally. GI: Abdomen is round non-distended, Bowel sounds present X 4 quads. Abd is soft and non tender X 4 quads. : No signs and/or symptoms were reported regarding the genitourinary system. EENT: No signs and/or symptoms were reported regarding the EENT system. Derm: Skin is intact, Skin is pink, warm \T\ dry. Musculoskeletal: Range of motion: intact in all extremities. 16:55 Reassessment: Patient is alert, oriented x 3, equal unlabored respirations, skin aa5 warm/dry/pink. Vital Signs: 15:55 BP 152 / 78; Pulse 72; Resp 20 S; Temp 97.9(O); Pulse Ox 94% on R/A; aa5 17:28 BP 154 / 95; Pulse 72; Resp 17; Temp 98.8(O); Pulse Ox 99% on R/A; rs5 1113 00:59 BP 119 / 70; Pulse 63; Resp 17; Pulse Ox 98% ; kl ED Course: 11 15:55 Patient arrived in ED. rs5 15:55 Arm band placed on. aa5 15:56 Triage completed. aa5 15:59 Ventura Quinonez MD is Attending Physician. ec2 16:00 Patient has correct armband on for positive identification. Bed in low position. Call rs5 light in reach. Side rails up X2. 16:02 Nahun Daniel, BRODERICK is Primary Nurse. rs5 16:18 CMP Sent. em1 16:18 CBC with Diff Sent. em1 16:18 Initial lab(s) drawn, by md, sent to lab. Inserted saline lock: 22 gauge in right em1 forearm, using aseptic technique. Blood collected. 17:02 CXR XRAY In Process Unspecified. EDMS 17:18 Regis Parikh MD is Hospitalizing Provider. ec2 08/10 01:01 Attending Physician role handed off by Ventura Quinonez MD 01:20 Regis Parikh MD is Attending Physician. Administered Medications: 08/09 16:20 Drug: Ondansetron IVP 4 mg IVP once; over 2 minutes Route: IVP; Site: right antecubital;rs5 16:55 Follow up: Response: No adverse reaction aa5 16:20 Drug: NS 0.9% IV 1000 ml IV at 1 bolus Per protocol; 1000 mL bolus Route: IV; Rate: 1 rs5 bolus; Site: right antecubital; 16:40 Follow up: Response: No adverse reaction rs5 16:26 Drug: DuoNeb Nebulize (3:1) (2.5 mg - 0.5 mg) 3 ml Nebulizer once Route: Nebulizer; rs5 16:55 Follow up: Response: No adverse reaction aa5 17:22 Drug: Magnesium Sulfate IVPB 2 grams IVPB once over 2 hrs Route: IVPB; Infused Over: 2 rs5 hrs; Site: right forearm; 17:22 Drug: Potassium Chloride PO 40 mEq PO once Route: PO; rs5 Outcome: 17:18 Decision to Hospitalize by Provider. ec2 08/10 00:59 Admitted to Tele accompanied by tech, room 412, Report called to Solo van Condition: improved Discharge instructions given to patient, Instructed on the need for admit, Demonstrated understanding of instructions, 01:00 Patient left the ED. car[place] 01:20 Patient left the ED. [place] Signatures: Dispatcher [employer] Rebecca Ferrer RN RN kl Martinez, Eric em1 Autumn Navas RN RN aa5 Nahun Daniel RN RN rs5 Ventura Quinonez MD MD ec2 Corrections: (The following items were deleted from the chart) 08/09 16:26 16:20 DuoNeb Nebulize (3:1) (2.5 mg - 0.5 mg) 3 ml Nebulizer rs5 rs5
--- NOTE | 2023-08-09 17:18 | EDPHYS ---
Physician Documentation [facility] Name: Carlene Padilla Age: 77 yrs Sex: Female : 1945 Arrival Date: 08/09/2023 Time: 15:20 Bed 16 Private MD: ED Physician Regis Parikh HPI: 08/09 16:02 This 77 yrs old Female presents to ER via EMS with complaints of General ec2 Weakness - COVID +. 16:02 Patient arrives today with a known diagnosis of COVID, with persistent symptoms, ec2 generalized weakness, decreased p.o. intake with associated nausea and diarrhea. Patient reports no significant abdominal pain. Patient reports that she has some general shortness of breath however has not significantly worsened.. Historical: - Allergies: 15:56 codeine sulfate; aa5 15:56 Compazine; aa5 15:56 Naprosyn; aa5 16:06 Simbrinza; aa5 16:06 Codeine; aa5 - Home Meds: 16:06 aspirin 81 mg Oral TbEC 1 tab once daily [Active]; colestipol 1 gram oral tablet aa5 [Active]; Estradiol Oral [Active]; metformin 750 mg oral Tablet, Extended Release 24 hr [Active]; levothyroxine 50 mcg capsule once [Active]; omeprazole 20 mg Oral cpDR 1 cap once daily [Active]; losartan-hydrochlorothiazide 100-12.5 mg Oral tab 1 tab once daily [Active]; Vascepa 1 gram oral capsule [Active]; fluticasone propionate 50 mcg/actuation intranasal spray, suspension [Active]; clobetasol 0.05 % Topical cream [Active]; Estrace vaginal [Active]; Centrum Women oral [Active]; nebivolol 5 mg oral tablet [Active]; magnesium oxide 500 mg oral tablet [Active]; Symbicort 80-4.5 mcg/actuation inhalation HFAA 2 puffs 2 times per day [Active]; Bibi Oral [Active]; Crestor 40 mg oral tablet once [Active]; donepezil 5 mg oral tablet [Active]; Gemtesa 75 mg oral tablet [Active]; - PMHx: 15:56 Diabetes - NIDDM; Hyperlipidemia; Hypertension; aa5 16:17 Asthma; thyroid problem; aa5 - PSHx: 15:56 hysterectomy (Hypertension); aa5 - Immunization history:: Adult Immunizations up to date. - Social history:: Smoking status: Patient denies any tobacco usage or history of. ROS: 16:02 Constitutional: as per hpi ec2 Exam: 16:02 Constitutional: GEN: NAD Head: atraumatic Eyes: EOMI Ears: External ears are ec2 normal. CV: regular rate LUNGS: no respiratory distress, no wheezes, no rales, no rhonchi ABD: non-distended, soft, nontender, no guarding, not rigid SKIN: no evidence of rashes MSK: no evidence of trauma NEURO: moves all extremities equally Vital Signs: 15:55 BP 152 / 78; Pulse 72; Resp 20 S; Temp 97.9(O); Pulse Ox 94% on R/A; aa5 17:28 BP 154 / 95; Pulse 72; Resp 17; Temp 98.8(O); Pulse Ox 99% on R/A; rs5 08/10 00:59 BP 119 / 70; Pulse 63; Resp 17; Pulse Ox 98% ; kl MDM: 11 15:59 Patient medically screened. ec2 16:02 ED course: Patient arrives today for evaluation of generalized weakness in the setting ec2 of known COVID-positive status. Examination remarkable for nontoxic individual who is in no acute respiratory distress with a benign abdomen. Will obtain lab work, treat the patient's symptoms with crystalloid as well as antiemetic. We will also obtain a chest x-ray. Low suspicion for bacterial process, considering other processes such as dehydration, electrolyte disturbances, anemia.. 16:58 Data reviewed: vital signs. ED course: Patient's lab work is remarkable for reassuring ec2 electrolytes and renal function, reassuring CBC. Ultimately patient is elderly with COVID and reports decreased p.o. intake and inability to care for self, will admit for continued COVID symptoms and symptom management. We will also give the patient potassium and magnesium given the patient's prolonged QT.. 16:59 ED course: Chest x-ray independently reviewed and interpreted by me, shows no acute ec2 intrathoracic process. 17:00 ED course: Discussed case with hospitalist, pending admission. . ec2 08/09 16:00 Order name: CBC with Diff; Complete Time: 16:36 ec2 08/09 16:00 Order name: CMP; Complete Time: 16:57 ec2 08/09 21:08 Order name: Glucose, Ancillary Testing; Complete Time: 00:16 EDMS 08/09 16:00 Order name: CXR XRAY; Complete Time: 00:16 ec2 08/09 16:00 Order name: EKG; Complete Time: 16:01 ec2 08/09 16:00 Order name: EKG Strip; Complete Time: 16:39 ec2 Administered Medications: 16:20 Drug: Ondansetron IVP 4 mg IVP once; over 2 minutes Route: IVP; Site: right antecubital;rs5 16:55 Follow up: Response: No adverse reaction aa5 16:20 Drug: NS 0.9% IV 1000 ml IV at 1 bolus Per protocol; 1000 mL bolus Route: IV; Rate: 1 rs5 bolus; Site: right antecubital; 16:40 Follow up: Response: No adverse reaction rs5 16:26 Drug: DuoNeb Nebulize (3:1) (2.5 mg - 0.5 mg) 3 ml Nebulizer once Route: Nebulizer; rs5 16:55 Follow up: Response: No adverse reaction aa5 17:22 Drug: Magnesium Sulfate IVPB 2 grams IVPB once over 2 hrs Route: IVPB; Infused Over: 2 rs5 hrs; Site: right forearm; 17:22 Drug: Potassium Chloride PO 40 mEq PO once Route: PO; rs5 Disposition Summary: 08/09/23 17:18 Hospitalization Ordered Notes: Hospitalization Status: Inpatient Admission ec2 Provider: Regis Parikh ec2 Condition: Stable ec2 Problem: an acute exacerbation ec2 Symptoms: have worsened ec2 Bed/Room Type: Standard ec2 Location: Telemetry/MedSurg (Inpatient)(08/10/23 00:06) Room Assignment: [facility](08/10/23 00:06) cg Diagnosis - COVID ec2 Discharge Instructions: - Discharge Summary Sheet eb Forms: - SBAR form eb - Medication Reconciliation Form ec2 - Leadership Thank You Letter ec2 Signatures: Dispatcher [employer] Autumn Evans RN RN aa5 Becky Evans RN RN cg Patel, Setul, MD MD sp3 Nahun Daniel RN RN rs5 Ventura Quinonez MD MD ec2 Corrections: (The following items were deleted from the chart) : 17:13 ED course: Speculum exam performed by me, and nursing supervision. Does show ec2 white thick discharge. No significant tenderness. Patient will defer empiric STI therapy.. ec2 :18 17:18 Telemetry/MedSurg (Inpatient) ec2 cg :18 17:18 ec2 cg 08/10 00:06 08/09 19:18 [facility] ER HOLD cg cg 08/10 00:06 08/09 19:18 ERHOLD- cg cg
[2023-08-09] MEDS ORDERED: Magnesium Sulfate 2gm IVPB 2 G/50 ML BAG IV ONE (17:23)
[2023-08-09] MEDS ORDERED: POTASSIUM CL SA 10 MEQ TAB PO ONE (17:23)
--- NOTE | 2023-08-09 17:27 | P.HP ---
Certification for Inpatient Patient admitted to: Observation With expected LOS: <2 Midnights Patient will require the following post-hospital care: None Practitioner: I am a practitioner with admitting privileges, knowledge of patient current condition, hospital course, and medical plan of care. Services: Services provided to patient in accordance with Admission requirements found in Title 42 Section 412.3 of the Code of Federal Regulations Patient History Date of Service: 08/09/23 Reason for admission: weakness History of Present Illness: 75-year-old female with a past medical history of diabetes, hyperlipidemia, hypertension, asthma presents to the emergency room with weakness. She reports recent diagnosis of COVID 5 days ago. She is on day 4 of Paxlovid. Reports mild wheezing, no reported shortness of breath, She reports mild nausea, diarrhea x 4 days, w 4 stools yesterday, 3 today, non bloody. reports Poor p.o. intake. She denies fever, vomiting, chest pain. Plan to admit for weakness secondary to dehydration. COVID, diarrhea. Laboratory evaluation no leukocytosis, mild left shift 79.7, mild hyponatremia 134 blood glucose 154, acute kidney injury BUN 20 creatinine 0.82, 164 Blood glucose. BP 152 / 78; Pulse 72; Resp 20 S; Temp 97.9(O); Pulse Ox 94% on R/A; Allergies brimonidine [From Simbrinza] Allergy (Verified 01/23/23 09:56) Redness/Swelling/Itching Eyes brinzolamide [From Simbrinza] Allergy (Verified 01/23/23 09:56) Redness/Swelling/Itching Eyes codeine Allergy (Verified 01/23/23 09:56) Shortness of breath COVID-19 vacc, bv (Orig, Omicron BA.4/5) (Moderna) [From Moderna COVID Bival(6y up)(PF)] Allergy (Verified 01/23/23 09:56) Mental Confusion naproxen [From Naprosyn] Allergy (Verified 01/23/23 09:56) Hives prochlorperazine [From Compazine] Allergy (Verified 01/23/23 09:56) Itching/Hives/Rash Home Medications: Aspirin [Aspirin EC 81 MG] 81 mg PO DAILY 11/23/20 Budesonide/Formoterol Fumarate [Symbicort 80-4.5 Mcg Inhaler] 2 puff PO DAILY 11/23/20 Levothyroxine [Synthroid*] 50 mcg PO [id number] 11/23/20 Losartan/Hydrochlorothiazide [Losartan-Hctz 100-12.5 mg Tab] 100 mg PO DAILY 11/23/20 Metformin HCl [Metformin HCl ER] 750 mg PO DAILY 11/23/20 Omeprazole 20 mg PO DAILY 11/23/20 Albuterol Sulfate [Proair Digihaler] 2 puff IH Q4HP PRN 01/20/23 Clobetasol Propionate/Emoll [Clobetasol Emollient 0.05% Crm] 1 eliel TP DIRECTED 01/20/23 Colestipol HCl [Colestid] 1 gm PO DAILY 01/20/23 Estradiol [Estrace] 1 elile VG SEECOM 01/20/23 Fexofenadine/Pseudoephedrine [Bibi-D 24 Hour Tablet] 1 each PO DAILYPRN PRN 01/20/23 Fluticasone [Flonase 50mcg Nasal [place]] 2 sprays NS DAILY 01/20/23 Ibuprofen/Diphenhydramine HCl [Advil Pm Liqui-Gels] 1 each PO BEDTIME 01/20/23 Magnesium Oxide [Magnesium] 500 mg PO DAILY 01/20/23 Multivitamin/Iron/Folic Acid [Centrum Adults Tablet] 1 each PO DAILY 01/20/23 Nebivolol HCl [Bystolic] 5 mg PO DAILY 01/20/23 Rosuvastatin Calcium 40 mg PO DAILY 01/20/23 icosapent ethyL [Vascepa 1 gm Cap] 1 gm PO DAILY 01/20/23 - Past Medical/Surgical History Diabetic: Yes -: Hyperlipidemia -: Hypertension -: Diabetes-NIDDM -: Thyroid Disease -: GERD -: Hysterectomy -: Right Ankle Surgery -: Bilateral heel surgery -: Appendectomy -: Cholecystectomy -: Cataract Removal Sx - Family History Father -: Hypertension Mother -: Hypertension, Cancer Notes: Skin Cancer - Social History Alcohol use: No CD- Drugs: No Caffeine use: Yes Place of Residence: Home Review of Systems 10-point ROS is otherwise unremarkable Physical Examination - Physical Exam General: Alert, In no apparent distress, Oriented x3 HEENT: Atraumatic, Normocephalic Neck: Supple, 2+ carotid pulse no bruit Respiratory: Clear to auscultation bilaterally, Normal air movement Cardiovascular: No edema, Normal pulses, Regular rate/rhythm Capillary refill: <2 Seconds Gastrointestinal: Normal bowel sounds, Other Integumentary: No rashes, No breakdown Neurological: Normal gait, Normal speech - Studies Laboratory Data (last 24 hrs) 08/09/23 08/09/23 16:15 16:15 WBC 9.70 Hgb 14.2 Hct 43.6 Plt Count 345 Sodium 134 L Potassium 3.8 BUN 20 H Creatinine 0.82 Glucose 154 H Total Bilirubin 0.4 AST 25 ALT 32 Alkaline Phosphatase 86 Assessment and Plan - Plan Assessment plan Acute hypoxic respiratory failure secondary to asthma exacerbation versus COVID Azithromycin, Rocephin, albuterol inhaler, Laboratory evaluation no leukocytosis, mild left shift 79.7 Continue the last day of Paxlovid, per her home dose. Dehydration secondary diarrhea Stool cultures for diarrhea Acute kidney injury IV fluids, trend kidney function acute kidney injury BUN 20 creatinine 0.82, Weakness Fall precautions, PT eval Hypokalemia Trend electrolytes replace as needed Hyponatremia hyponatremia 134 Diabetes 164 Blood glucose Accu-Cheks, sliding scale insulin Essential hypertension Hyperlipidemia Resume appropriate home Full code DVT prophylaxis Lovenox Diet cardiac Discharge Plan: Home Plan to discharge in: 24 Hours - Advance Directives Does patient have a Living Will: No Does patient have a Durable POA for Healthcare: Yes - Code Status/Comfort Care Code Status: Full Code Physician Review: Patient Assessed, Agree with Above Assessment and Plan Critical Care: No Time Spent Managing Pts Care (In Minutes): 55
--- NOTE | 2023-08-09 17:36 | RAD REPORT ---
EXAM DESCRIPTION: Frank Single View08/09/2023 5:00 pm CLINICAL HISTORY: Congestion COMPARISON: December 2022 FINDINGS: The lungs appear clear of acute infiltrate. The heart is normal size IMPRESSION: No acute abnormalities displayed
[2023-08-09] MEDS: NA CHLORIDE 0.9% 1,000 ML IV SCH (20:27)
[2023-08-09] MEDS ORDERED: AZITHROMYCIN IV 500 MG in NA CHLORIDE 0.9% 250 ML IVPB SCH (20:27)
[2023-08-09] MEDS ORDERED: ACETAMINOPHEN 500 MG TAB PO PRN (20:27)
[2023-08-09] MEDS ORDERED: GUAIFENESIN/DM 5 ML UCUP PO PRN (20:27)
[2023-08-09] MEDS ORDERED: ALPRAZOLAM 0.25 MG TABLET PO PRN (20:27)
[2023-08-09] MEDS ORDERED: ALBUTEROL 2.5 MG/3 ML NEB SOL NEB PRN (20:27)
[2023-08-09] MEDS ORDERED: PROMETHAZINE 25 MG TABLET PO PRN (20:27)
[2023-08-09 20:35] VITALS: BMI 25.5
[2023-08-09] MEDS ORDERED: AZITHROMYCIN 500 MG INJ IVPB ONE (20:51)
[2023-08-09] MEDS ORDERED: NA CHLORIDE 0.9% 0 ML ONE (20:51)
[2023-08-09] MEDS ORDERED: NA CHLORIDE 0.9% 250 ML ONE (20:54)
[2023-08-09] MEDS: INSULIN REGULAR (HUMAN) 100 UNIT/ML SQ SCH (21:00)
[2023-08-09] MEDS ORDERED: INSULIN REGULAR (HUMAN) 100 UNIT/ML ONE (22:52)
[2023-08-10 04:19] LABS: Absolute Lymphocytes (CBC) 1.4 K/uL (0.7-4.9); Hematocrit 36.5 % (36.0-45.0); Lymphocytes % 19.6 % (15.3-44.8); MCV 91.2 fL (80-100); Platelets 301 thou/uL (152-406)
[2023-08-10 04:26] LABS: Magnesium 2.4 mg/dL (1.6-2.4); Potassium 4.4 mEq/L (3.5-5.1)
[2023-08-10] MEDS: NA CHLORIDE 0.9% 1,000 ML IV SCH (06:20)
[2023-08-10] MEDS: INSULIN REGULAR (HUMAN) 100 UNIT/ML SQ SCH ×2 (07:30→11:30)
[2023-08-10] MEDS ORDERED: ENOXAPARIN 40 MG/0.4 ML SQ SCH (09:00)
[2023-08-10 10:04] VITALS: TEMP 97.2
[2023-08-10 12:18] VITALS: O2SAT 96
--- NOTE | 2023-08-10 12:36 | P.DS ---
Admission Date: 08/09/23 Discharge Date: 08/10/23 Disposition: TRANSFER TO CARE HOME Discharge Condition: GOOD Reason for Admission: weakness Brief History of Present Illness: Patient History Date of Service: 08/09/23 Reason for admission: weakness History of Present Illness: 75-year-old female with a past medical history of diabetes, hyperlipidemia, hypertension, asthma presents to the emergency room with weakness. She reports recent diagnosis of COVID 5 days ago. She is on day 4 of Paxlovid. Reports mild wheezing, no reported shortness of breath, She reports mild nausea, diarrhea x 4 days, w 4 stools yesterday, 3 today, non bloody. reports Poor p.o. intake. She denies fever, vomiting, chest pain. Plan to admit for weakness secondary to dehydration. COVID, diarrhea. Laboratory evaluation no leukocytosis, mild left shift 79.7, mild hyponatremia 134 blood glucose 154, acute kidney injury BUN 20 creatinine 0.82, 164 Blood glucose. BP 152 / 78; Pulse 72; Resp 20 S; Temp 97.9(O); Pulse Ox 94% on R/A. Hospital Course: Ms. Padilla, is a pleasant 75-year-old with a past medical history significant for diabetes, hyperlipidemia, hypertension, asthma who was admitted to the [facility] on 08/09/2020 for complaints of COVID 5 days ago, on PACS low-grade. Reports mild wheezing, and dehydration.. Patient was admitted with a diagnosis of dehydration, leukocytosis, hyponatremia, acute kidney injury. Patient was given IV fluid, oxygen 2 L/min. Her lab work reports came back to normal On 08/10/2023, patient was seen on morning rounds and deemed medically stable for discharge. Patient was discharged with instructions to schedule follow-up appointments with PCP in 3 to 5 days. Patient' s oxygen saturations on room air was 96%. Patient denies any shortness of breath or any othercomplaints at this time . The patient and family members were given the opportunity to ask questions and reported no further questions. Furthermore, all questions were answered to the best of my ability. Vital Signs/Physical Exam: Temp Pulse Resp BP Pulse Ox 97.2 F 60 16 117/66 94 08/10/23 08:00 08/10/23 08:00 08/10/23 08:00 08/10/23 08:00 08/10/23 08:00 General: Alert, Oriented x3 HEENT: Atraumatic, Normocephalic Neck: Supple, 2+ carotid pulse no bruit Respiratory: Clear to auscultation bilaterally, Normal air movement Capillary refill: <2 Seconds Gastrointestinal: Normal bowel sounds, Soft and benign Musculoskeletal: No clubbing, No swelling Integumentary: No rashes, No breakdown Neurological: Normal gait, Normal speech, Normal affect Laboratory Data at Discharge: WBC 7.30 thou/uL (4.3-10.9) 08/10/23 03:44 Hgb 11.9 g/dL (12.0-15.0) L D 08/10/23 03:44 Hct 36.5 % (36.0-45.0) 08/10/23 03:44 Plt Count 301 thou/uL (152-406) 08/10/23 03:44 Sodium 138 mEq/L (136-145) 08/10/23 03:44 Potassium 4.4 mEq/L (3.5-5.1) D 08/10/23 03:44 BUN 19 mg/dL (7-18) H 08/10/23 03:44 Creatinine 0.74 mg/dL (0.55-1.02) 08/10/23 03:44 Glucose 197 mg/dL (74-106) H 08/10/23 03:44 Magnesium 2.4 mg/dL (1.6-2.4) 08/10/23 03:44 Total Bilirubin 0.4 mg/dL (0.2-1.0) 08/09/23 16:15 AST 25 U/L (15-37) 08/09/23 16:15 ALT 32 U/L (13-56) 08/09/23 16:15 Alkaline Phosphatase 86 U/L (45-117) 08/09/23 16:15 Home Medications: Aspirin [Aspirin EC 81 MG] 81 mg PO DAILY 11/23/20 Budesonide/Formoterol Fumarate [Symbicort 80-4.5 Mcg Inhaler] 2 puff PO DAILY 11/23/20 Levothyroxine [Synthroid*] 50 mcg PO [id number] 11/23/20 Losartan/Hydrochlorothiazide [Losartan-Hctz 100-12.5 mg Tab] See Rx Instructions .ROUTE .COMPLEX 11/23/20 Metformin HCl [Metformin HCl ER] 750 mg PO DAILY 11/23/20 Omeprazole 20 mg PO DAILY 11/23/20 Albuterol Sulfate [Proair Digihaler] 2 puff IH Q4HP PRN 01/20/23 Clobetasol Propionate/Emoll [Clobetasol Emollient 0.05% Crm] 1 eliel TP DIRECTED 01/20/23 Colestipol HCl [Colestid] 1 gm PO DAILY 01/20/23 Estradiol [Estrace] 1 eliel VG SEECOM 01/20/23 Fexofenadine/Pseudoephedrine [Bibi-D 24 Hour Tablet] 1 each PO DAILYPRN PRN 01/20/23 Fluticasone [Flonase 50MCG Nasal [place]*] 2 sprays NS DAILY 01/20/23 Ibuprofen/Diphenhydramine HCl [Advil Pm Liqui-Gels] 1 each PO BEDTIME 01/20/23 Magnesium Oxide [Magnesium] 500 mg PO DAILY 01/20/23 Multivitamin/Iron/Folic Acid [Centrum Adults Tablet] 1 each PO DAILY 01/20/23 Nebivolol HCl [Bystolic*] 5 mg PO DAILY 01/20/23 Rosuvastatin Calcium 40 mg PO DAILY 01/20/23 icosapent ethyL [Vascepa 1 gm Cap] 1 gm PO DAILY 01/20/23 Donepezil HCl 5 mg PO DAILY 08/09/23 Vibegron [Gemtesa] 75 mg PO DAILY 08/09/23 Physician Discharge Instructions: Ms. Padilla, is a pleasant 75-year-old with a past medical history significant for diabetes, hyperlipidemia, hypertension, asthma who was admitted to the [facility] on 08/09/2020 for complaints of COVID 5 days ago, on PACS low-grade. Reports mild wheezing, and dehydration.. Patient was admitted with a diagnosis of dehydration, hyponatremia, acute kidney injury. Patient was given IV fluid, oxygen 2 L/min. Her lab work reports came back to normal, kidney function improved. On 08/10/2023, patient was seen on morning rounds and deemed medically stable for discharge. Patient was discharged with instructions to schedule follow-up appointments with PCP in 3 to 5 days. Patient' s oxygen saturations on room air was 96%. Patient denies any shortness of breath or any othercomplaints at this time . The patient and family members were given the opportunity to ask questions and reported no further questions. Furthermore, all questions were answered to the best of my ability. Activity: Ad bijal Followup: Trenton Jo MD [Primary Care Provider] - Physician Review: Patient Assessed, Agree with Above Assessment and Plan Time spent managing pt's care (in minutes): 55 (minutes)
[2023-08-10] MEDS ORDERED: ALBUTEROL 2.5 MG/3 ML NEB SOL NEB PRN (14:00)
[2023-08-10 14:14] VITALS: BP 149/76
--- NOTE | 2023-08-12 17:33 | EKG ---
Test Date: 2023-08-09 Test Time: 16:36:18 Container Repairer: HUBERT MEASUREMENT RESULTS: Intervals: Rate: 57 MD: 190 QRSD: 96 QT: 512 QTc: 498 [place]: P: 55 MD: 190 QRS: -10 T: 46 INTERPRETIVE STATEMENTS: Sinus bradycardia with sinus arrhythmia Prolonged QT Abnormal ECG Compared to ECG 01/20/2023 10:41:37 Prolonged QT interval now present Sinus rhythm no longer present Myocardial infarct finding no longer present Electronically Signed On 08-12-23 17:25:13 PATHOLOGY TRANSCRIPTIONIST by Adalberto Cadena
== END 2023-08-10 15:30 ==
LOC: ER 15:20 → ERHOLD 17:28 → 4TH 08-10 01:03
PROVIDERS: ADMIT Internal Medicine Nephrology; ATTEND Hospitalist
DX: J96.01 Acute respiratory failure with hypoxia (principal); N17.9 Acute kidney failure, unspecified; E87.6 Hypokalemia; E87.1 Hypo-osmolality and hyponatremia; E11.9 Type 2 diabetes mellitus without complications; E78.5 Hyperlipidemia, unspecified; I10 Essential (primary) hypertension; J45.909 Unspecified asthma, uncomplicated; R53.1 Weakness; E86.0 Dehydration; R19.7 Diarrhea, unspecified; Z88.7 Allergy status to serum and vaccine; Z86.16 Personal history of COVID-19; Z88.5 Allergy status to narcotic agent; Z88.8 Allergy status to other drugs, medicaments and biological substances; Z79.82 Long term (current) use of aspirin; Z79.890 Hormone replacement therapy; Z79.84 Long term (current) use of oral hypoglycemic drugs
CPT/HCPCS: 93005; 85025 ×2; 80048; 36415; 83735; 82947 ×3; 80053; 71045; 94640; 94760 ×2; 99285; J1815; J3475; J7613 ×2; J7644; J1650; J2405; J7050; J7030 ×3; G0378

== ENCOUNTER 2023-10-06 13:18 | Observation (INO) | payer OTHER ==
--- NOTE | 2023-10-06 14:28 | RAD REPORT ---
EXAM DESCRIPTION: RAD - Chest Single View - 10/06/2023 2:20 pm CLINICAL HISTORY: Cough;Congestion;Chest pain COMPARISON: Chest Single View dated 08/09/2023; Chest Pa And Lat (2 Views) dated 01/20/2023; Chest Si ngle View dated 07/05/2022; Chest Single View dated 11/22/2020 FINDINGS: Lines: None. Lungs: No evidence of edema or pneumonia. Pleural: No significant pleural effusions or pneumothorax. Cardiac: The heart size is within normal limits. Mediastinum: Within normal limits. Bones: No acute fractures. Other: None IMPRESSION: No acute cardiopulmonary disease.
[2023-10-06 14:55] LABS: Absolute Lymphocytes (CBC) 1.3 K/uL (0.7-4.9); Hematocrit 41.6 % (36.0-45.0); Lymphocytes % 14.7 % (15.3-44.8); MCV 89.4 fL (80-100); MPV 8.4 fL (7.6-11.3); Platelets 251 thou/uL (152-406); RBC Red Blood Cell Count 4.66 M/uL (3.86-4.86)
[2023-10-06 14:57] LABS: Magnesium 1.3 mg/dL (1.6-2.4); Potassium 3.7 mEq/L (3.5-5.1); Troponin High Sensitivity 6.5 pg/mL (<58.9)
[2023-10-06 15:04] LABS: Specific Gravity 1.022 (1.005-1.030); Urine Bacteria None Seen /HPF (<20); Urine Bilirubin NEGATIVE (Negative); Urine Blood Negative (Negative); Urine Clarity Clear (Clear); Urine Color Light-Yellow (Yellow); Urine Glucose NEGATIVE (Negative); Urine Mucus Slight /HPF (None Seen); Urine Protein 1+ (Negative); Urine Urobilinogen Normal (Normal); Urine pH 6.5 (5.0-7.0)
--- NOTE | 2023-10-06 15:06 | EDPHYS ---
Physician Documentation [facility] Name: Carlene Padilla Age: 78 yrs Sex: Female : 1945 Arrival Date: 10/06/2023 Time: 13:18 Bed 15 Private MD: ED Physician Jesús Bergman HPI: 10/06 14:14 This 78 yrs old Female presents to ER via Wheelchair with complaints of Chest Pain - kb Tightness, Breathing Difficulty, High Blood Pressure. 14:14 Patient is a 78-year-old female who presents for chest tightness and shortness of kb breath that started today. States she has had cough, runny nose, sore throat, chills and weakness over the last 9 days. States she was exposed to multiple family members with the flu so assumed that is what she had over the last 9 days. Was seen by new PCP, Roslyn Prescott, today and was sent to the ER for evaluation. States pain in chest is across the entire front. Denies radiation.. Historical: - Allergies: 13:27 Codeine; ll1 13:27 codeine sulfate; ll1 13:27 Compazine; ll1 13:27 Naprosyn; ll1 13:27 Simbrinza; ll1 - PMHx: 13:27 Hyperlipidemia; Hypertension; Diabetes - NIDDM; Asthma; Thyroid problem; ll1 - PSHx: 13:27 hyst; hysterectomy (en); ll1 - Immunization history:: Adult Immunizations up to date. - Social history:: Smoking status: Patient denies any tobacco usage or history of. ROS: 14:14 Abdomen/GI: Negative for abdominal pain, nausea, vomiting, diarrhea, and constipation, kb 14:14 Constitutional: Positive for body aches, chills, fatigue, malaise, 14:14 ENT: Positive for rhinorrhea, sinus congestion, sore throat, 14:14 Cardiovascular: Positive for chest pain, 14:14 Respiratory: Positive for cough, shortness of breath, 14:14 Neuro: Positive for weakness, 14:14 All other systems are negative, Exam: 14:15 Constitutional: This is a well developed, well nourished patient who is awake, alert, kb and in no acute distress. Head/Face: Normocephalic, atraumatic. ENT: Moist Mucous membranes Cardiovascular: Regular rate Respiratory: Respirations even and unlabored. No increased work of breathing. Talking in full sentences Abdomen/GI: Soft, non-tender. No distention Skin: Warm, dry with normal turgor. Normal color. MS/ Extremity: Pulses equal, no cyanosis. Neurovascular intact. Full, normal range of motion. Neuro: Awake and alert, GCS 15, oriented to person, place, time, and situation. Moves all extremities. Normal gait. 14:59 ECG was reviewed by the Attending Physician. kb Vital Signs: 13:27 BP 171 / 98; Pulse 69; Resp 18; Temp 97; Pulse Ox 94% on R/A; Pain 0/10; ll1 15:00 BP 164 / 71; Pulse 64; Resp 16; Pulse Ox 91% ; bp 17:00 BP 167 / 91; Pulse 62; Resp 16; Pulse Ox 90% ; bp 13:27 Pain Scale: Adult ll1 MDM: 13:23 Patient medically screened. kb 14:15 Data reviewed: vital signs, nurses notes. kb 15:00 Differential diagnosis: abnormal ekg, acute WA, pneumonia, URI, flu, covid. kb Consideration of Admission/Observation Patient was admitted/placed on observation. Escalation of care including admission/observation considered. Management of patient was discussed with the following: Hospitalist: Hospitalist team, pt accepted for admission under Dr Bullard. Counseling: I had a detailed discussion with the patient and/or guardian regarding the historical points, exam findings, and any diagnostic results supporting the discharge/admit diagnosis, lab results, radiology results, the need for further work-up and treatment in the hospital. 10/06 13:32 Order name: Basic Metabolic Panel; Complete Time: 14:58 kb 10/06 13:32 Order name: CBC with Diff; Complete Time: 14:57 kb 10/06 13:32 Order name: Magnesium; Complete Time: 14:58 kb 10/06 13:32 Order name: NT PRO-BNP; Complete Time: 14:58 kb 10/06 13:32 Order name: Troponin HS; Complete Time: 14:58 kb 10/06 13:32 Order name: Flu; Complete Time: 14:58 kb 10/06 13:32 Order name: COVID-19 SARS RT PCR; Complete Time: 15:05 kb 10/06 13:32 Order name: Urinalysis w/ reflexes; Complete Time: 15:05 kb 10/06 15:16 Order name: Lipid Profile EDMS 10/06 15:16 Order name: Lipid Profile EDMS 10/06 15:16 Order name: Troponin High Sensitivity EDMS 10/06 15:16 Order name: Troponin High Sensitivity EDMS 10/06 15:16 Order name: Troponin High Sensitivity EDMS 10/06 15:16 Order name: Troponin High Sensitivity EDMS 10/06 13:32 Order name: XRAY Chest (1 view); Complete Time: 14:32 kb 10/06 15:16 Order name: Echo with Doppler EDMS 10/06 13:32 Order name: EKG; Complete Time: 13:33 kb 10/06 15:16 Order name: CONS Physician Consult EDMS 10/06 13:32 Order name: Cardiac monitoring; Complete Time: 14:14 kb 10/06 13:32 Order name: EKG - Nurse/Tech; Complete Time: 14:46 kb 10/06 13:32 Order name: IV Saline Lock; Complete Time: 14:14 kb 10/06 13:32 Order name: Labs collected and sent; Complete Time: 14:14 kb 10/06 13:32 Order name: O2 Per Protocol; Complete Time: 14:14 kb 10/06 13:32 Order name: O2 Sat Monitoring; Complete Time: 14:14 kb EC:59 Rate is 62 beats/min. Rhythm is regular. QRS [place] is Normal. [place] interval is normal at kb 184 msec. QRS interval is normal at 96 msec. QT interval is prolonged at 513 msec. Administered Medications: 15:41 Drug: Magnesium Sulfate IVPB 2 grams IVPB once over 2 hrs Route: IVPB; Infused Over: 2 kc6 hrs; Site: right forearm; 17:13 Follow up: IV Status: Completed infusion; IV Intake: 50ml bp Disposition: 19:20 I was immediately available on-site in the Emergency Department for consultation in the ms3 care of the patient. Disposition Summary: 10/06/23 15:05 Hospitalization Ordered Notes: Hospitalization Status: Observation kb Provider: Brandt Bullard Condition: Stable kb Problem: new kb Symptoms: are unchanged kb Bed/Room Type: Standard kb Location: Telemetry/MedSurg (observation)(10/06/23 17:15) bd Room Assignment: 411(10/06/23 17:15) bd Diagnosis - Chest pain, unspecified kb Discharge Instructions: - Discharge Summary Sheet bp Forms: - Medication Reconciliation Form kb - Leadership Thank You Letter kb - SBAR form bp Signatures: Dispatcher [employer] EDDariela Ryan FNP-C FNP-Martha Laws Brian, RN RN bp Mirtha Alarcon RN RN ll1 Jesús Bergman, DO ms3 Goldie Murphy RN RN kc6 Corrections: (The following items were deleted from the chart) 16:13 15:05 Telemetry/MedSurg (observation) kb bp 16:13 15:05 kb bp 17:15 16:13 BR ER HOLD bp bd 17:15 16:13 ERHOLD- bp bd
--- NOTE | 2023-10-06 15:06 | ER ---
Nurse's Notes [facility] Name: Carlene Padilla Age: 78 yrs Sex: Female : 1945 Arrival Date: 10/06/2023 Time: 13:18 Bed 15 Private MD: Diagnosis: Chest pain, unspecified Presentation: 10/06 13:27 Chief complaint: Patient states: Flu symptoms for 9 days. Sweating, weak, cough, runny ll1 nose, nausea. Started to have SOB and high BP today. Sent by Gio Prescott NP for further evaluation. Coronavirus screen: Vaccine status: Patient reports receiving the 2nd dose of the covid vaccine. Client denies travel out of the [place] in the last 14 days. cough unrelated to allergies, difficulty breathing, fatigue. Ebola Screen: Patient denies travel to an Ebola-affected area in the 21 days before illness onset. Initial Sepsis Screen: Does the patient meet any 2 criteria? No. Patient's initial sepsis screen is negative. Does the patient have a suspected source of infection? Yes: Productive cough/pneumonia. Risk Assessment: Do you want to hurt yourself or someone else? Patient reports no desire to harm self or others. Onset of symptoms was September 28, 2023. 13:27 Method Of Arrival: Wheelchair ll1 13:27 Acuity: ZOHRA 3 ll1 Triage Assessment: 13:30 General: Appears in no apparent distress. Behavior is calm, cooperative, appropriate bp for age. Pain: Denies pain. Cardiovascular: Reports chest pain. Historical: - Allergies: 13:27 Codeine; ll1 13:27 codeine sulfate; ll1 13:27 Compazine; ll1 13:27 Naprosyn; ll1 13:27 Simbrinza; ll1 - PMHx: 13:27 Hyperlipidemia; Hypertension; Diabetes - NIDDM; Asthma; Thyroid problem; ll1 - PSHx: 13:27 hyst; hysterectomy (en); ll1 - Immunization history:: Adult Immunizations up to date. - Social history:: Smoking status: Patient denies any tobacco usage or history of. Screenin:10 [facility] ED Fall Risk Assessment (Adult) History of falling in the last 3 months, bp including since admission No falls in past 3 months (0 pts). Abuse screen: Denies threats or abuse. Denies injuries from another. Nutritional screening: No deficits noted. Tuberculosis screening: No symptoms or risk factors identified. Assessment: 13:30 General: SEE TRIAGE NOTE. bp 15:00 Reassessment: No changes from previously documented assessment. Patient is alert, bp oriented x 3, equal unlabored respirations, skin warm/dry/pink. 16:30 Reassessment: ADMIT INITIATED. bp Vital Signs: 13:27 BP 171 / 98; Pulse 69; Resp 18; Temp 97; Pulse Ox 94% on R/A; Pain 0/10; ll1 15:00 BP 164 / 71; Pulse 64; Resp 16; Pulse Ox 91% ; bp 17:00 BP 167 / 91; Pulse 62; Resp 16; Pulse Ox 90% ; bp 13:27 Pain Scale: Adult ll1 ED Course: 13:22 Patient arrived in ED. mg5 13:23 Dariela Mcfarlane [facility]-C [facility] kb 13:23 Jesús Bergman DO is Attending Physician. kb 13:26 Arm band placed on. ll1 13:29 Triage completed. ll1 13:50 Hilario Freire, BRODERICK is Primary Nurse. bp 13:55 Patient placed in an exam room, on a stretcher. iw 14:14 Inserted saline lock: 22 gauge in right forearm, using aseptic technique. Blood bp collected. 14:22 XRAY Chest (1 view) In Process Unspecified. EDMS 14:46 COVID-19 SARS RT PCR Sent. bp 14:46 Flu Sent. bp 15:05 Brandt Bullard MD is Hospitalizing Provider. kb 17:10 No provider procedures requiring assistance completed. Patient admitted, IV remains in bp place. Patient maintains SpO2 saturation greater than 95% on room air. 18:29 Patient has correct armband on for positive identification. Provided Education on: N/A. bp Client placed on continuous cardiac and pulse oximetry monitoring. NIBP monitoring applied. Administered Medications: 15:41 Drug: Magnesium Sulfate IVPB 2 grams IVPB once over 2 hrs Route: IVPB; Infused Over: 2 kc6 hrs; Site: right forearm; 17:13 Follow up: IV Status: Completed infusion; IV Intake: 50ml bp Medication: 17:13 VIS not applicable for this client. bp Intake: 17:13 IV: 50ml; Total: 50ml. bp Outcome: 15:05 Decision to Hospitalize by Provider. kb 17:10 Admitted to ER Hold. Please see [facility] for further documentation. bp 17:10 Condition: stable 17:10 Instructed on the need for admit, 18:39 Patient left the ED. bp Signatures: Dispatcher [employer] EDMS Dariela Mcfarlane, HEAD OF [employer]CH[employer]YING-C HEAD OF MERCHANDISE BUYING-Ckb Enedina Kirkland, RN RN iw Hilario Freire RN RN Mirtha Kothari RN RN ll1 Goldie Murphy RN RN [facility] Rosemarie Lin 5 Corrections: (The following items were deleted from the chart) 13:30 13:27 Chief complaint: Patient states: Flu symptoms for 9 days. Started to have SOB and ll1 high BP today. Sent by Gio Prescott NP for further eval ll1
[2023-10-06] MEDS ORDERED: Magnesium Sulfate 2gm IVPB 2 G/50 ML BAG IV ONE ×2 (15:32→15:34)
[2023-10-06] MEDS: MAGNESIUM CHLORIDE 64 MG TAB PO SCH (16:00)
[2023-10-06 18:45] VITALS: BMI 25.7
[2023-10-06] MEDS: METOPROLOL TAR 25 MG TAB PO SCH (19:27)
[2023-10-06] MEDS ORDERED: ENOXAPARIN 80 MG/0.8 ML SQ SCH (21:00)
[2023-10-06] MEDS: HYDRALAZINE HCL 20 MG/ML VIAL IV PRN (23:46)
[2023-10-07] MEDS: ALPRAZOLAM 0.25 MG TABLET PO PRN ×2 (00:16→20:42)
[2023-10-07] MEDS ORDERED: NITROGLYCERIN 0.4 MG/TAB SL PRN (00:50)
[2023-10-07] MEDS: ACETAMINOPHEN 500 MG TAB PO PRN ×2 (01:00→23:48)
[2023-10-07] MEDS ORDERED: MORPHINE 2 MG/ML SYR IV PRN (01:34)
[2023-10-07 07:15] LABS: HDL Cholesterol 53 mg/dL (40-60)
[2023-10-07 07:38] LABS: LDL, Direct 24 mg/dL (100-129)
[2023-10-07] MEDS: ASPIRIN EC 81 MG TAB PO SCH (08:15)
[2023-10-07] MEDS: METOPROLOL TAR 25 MG TAB PO SCH ×2 (08:15→20:42)
[2023-10-07] MEDS: MAGNESIUM CHLORIDE 64 MG TAB PO SCH ×2 (10:05→20:41)
--- NOTE | 2023-10-07 14:55 | P.HP ---
Certification for Inpatient Patient admitted to: Observation With expected LOS: <2 Midnights Patient will require the following post-hospital care: None Practitioner: I am a practitioner with admitting privileges, knowledge of patient current condition, hospital course, and medical plan of care. Services: Services provided to patient in accordance with Admission requirements found in Title 42 Section 412.3 of the Code of Federal Regulations Patient History Date of Service: 10/06/23 Reason for admission: Chest pain rule out acute coronary syndrome History of Present Illness: Patient is a 89-year-old female who presents to the hospital with chest discomfort. Pain was mainly the sternal region. She came to the ER and was given anti-inflammatories and her pain improved. Clinically she is feeling much better. Patient denies any other complaints. Patient denies any shortness of breath. Patient comes into the hospital for further evaluation. Patient was seen by cardiology a few weeks ago. She says she has had multiple diagnostic studies. Will consult cardiology for further review. Patient has a history of COVID-19. She was treated for this a few months ago and she recovered well. Patient is doing well and initial troponin and EKG are unremarkable. Patient will be admitted for observation. Allergies brimonidine [From Simbrinza] Allergy (Verified 01/23/23 09:56) Redness/Swelling/Itching Eyes brinzolamide [From Simbrinza] Allergy (Verified 01/23/23 09:56) Redness/Swelling/Itching Eyes codeine Allergy (Verified 01/23/23 09:56) Shortness of breath COVID-19 vacc, bv (Orig, Omicron BA.4/5) (Moderna) [From Moderna COVID Bival(6y up)(PF)] Allergy (Verified 01/23/23 09:56) Mental Confusion naproxen [From Naprosyn] Allergy (Verified 01/23/23 09:56) Hives prochlorperazine [From Compazine] Allergy (Verified 01/23/23 09:56) Itching/Hives/Rash Home Medications: Aspirin [Aspirin EC 81 MG] 81 mg PO DAILY 11/23/20 Budesonide/Formoterol Fumarate [Symbicort 80-4.5 Mcg Inhaler] 2 puff PO DAILY 11/23/20 Levothyroxine [Synthroid*] 50 mcg PO PMUWM2TC 11/23/20 Losartan/Hydrochlorothiazide [Losartan-Hctz 100-12.5 mg Tab] See Rx Instructions .ROUTE .COMPLEX 11/23/20 Metformin HCl [Metformin HCl ER] 750 mg PO DAILY 11/23/20 Omeprazole 20 mg PO DAILY 11/23/20 Albuterol Sulfate [Proair Digihaler] 2 puff IH Q4HP PRN 01/20/23 Clobetasol Propionate/Emoll [Clobetasol Emollient 0.05% Crm] 1 eliel TP DIRECTED 01/20/23 Colestipol HCl [Colestid] 1 gm PO DAILY 01/20/23 Estradiol [Estrace] 1 eliel VG SEECOM 01/20/23 Fexofenadine/Pseudoephedrine [Bibi-D 24 Hour Tablet] 1 each PO DAILYPRN PRN 01/20/23 Fluticasone [Flonase 50MCG Nasal [place]*] 2 sprays NS DAILY 01/20/23 Ibuprofen/Diphenhydramine HCl [Advil Pm Liqui-Gels] 1 each PO BEDTIME 01/20/23 Magnesium Oxide [Magnesium] 500 mg PO DAILY 01/20/23 Multivitamin/Iron/Folic Acid [Centrum Adults Tablet] 1 each PO DAILY 01/20/23 Nebivolol HCl [Bystolic*] 5 mg PO DAILY 01/20/23 Rosuvastatin Calcium 40 mg PO DAILY 01/20/23 icosapent ethyL [Vascepa 1 gm Cap] 1 gm PO DAILY 01/20/23 Donepezil HCl 5 mg PO DAILY 08/09/23 Vibegron [Gemtesa] 75 mg PO DAILY 08/09/23 Benzonatate [Tessalon Perle] 200 mg PO TID #30 cap 08/10/23 Ondansetron [Zofran] 4 mg PO Q6H PRN #20 tab 08/10/23 predniSONE [Prednisone] 20 mg PO DAILY #5 tab 08/10/23 - Past Medical/Surgical History Has patient received pneumonia vaccine in the past: Yes Diabetic: Yes -: Hyperlipidemia -: Hypertension -: Diabetes-NIDDM -: Thyroid Disease -: GERD -: Hysterectomy -: Right Ankle Surgery -: Bilateral heel surgery -: Appendectomy -: Cholecystectomy -: Cataract Removal Sx - Family History Father Medical History: Hypertension Mother Medical History: Hypertension, Cancer Notes: Skin Cancer - Social History Smoking Status: Current some day smoker Alcohol use: No CD- Drugs: No Place of Residence: Home Review of Systems 10-point ROS is otherwise unremarkable Physical Examination - Vital Signs Temperature: 97.3 F Blood Pressure: 170/82 Pulse: 74 Respirations: 19 Pulse Ox (%): 93 - Physical Exam General: Alert, In no apparent distress, Oriented x3 HEENT: Atraumatic, PERRLA, Mucous membr. moist/pink, EOMI, Sclerae nonicteric Neck: Supple, 2+ carotid pulse no bruit, No LAD, Without JVD or thyroid abnormality Respiratory: Clear to auscultation bilaterally, Normal air movement Cardiovascular: Regular rate/rhythm, Normal S1 S2, No murmurs Gastrointestinal: Normal bowel sounds, Soft and benign, Non-distended, No tenderness, No rebound, No guarding Musculoskeletal: No clubbing, No swelling, No tenderness Integumentary: No rashes Neurological: Normal gait, Normal speech, Normal strength at 5/5 x4 extr, Normal tone, Sensation intact, Cranial nerves 3-12 intact, Normal affect Lymphatics: No axilla or inguinal lymphadenopathy - Studies Laboratory Data (last 24 hrs) 10/06/23 10/06/23 14:13 14:13 WBC 8.70 Hgb 13.7 Hct 41.6 Plt Count 251 Sodium 137 Potassium 3.7 BUN 16 Creatinine 0.76 Glucose 169 H Magnesium 1.3 L Microbiology Data (last 24 hrs): 10/06/23 14:13 Nasopharnyx Influenza Type A Antigen Screen - Final 10/06/23 14:13 Nasopharnyx Influenza Type B Antigen Screen - Final Assessment & Plan - Problems (Diagnosis) (1) Chest pain, rule out acute myocardial infarction Current Visit: Yes Status: Acute (2) DM type 2 (diabetes mellitus, type 2) Current Visit: Yes Status: Acute (3) Hyperlipidemia Current Visit: No Status: Chronic Qualifiers: (4) Hypertension Current Visit: No Status: Chronic - Plan -High-sensitivity troponin -Cardiology consultation -Echocardiogram and stress test per cardiology recommendation -Repeat EKG -Work-up for other etiologies of cardiac chest pain if troponins remain negative -Lipid profile -Head Of Ethics And Compliance regarding modifying risk for cardiac disease Discharge Plan: Home Plan to discharge in: 24 Hours - Advance Directives Does patient have a Living Will: Yes Does patient have a Durable POA for Healthcare: No - Code Status/Comfort Care Code Status Assessed: Yes Code Status: Full Code Critical Care: No Time Spent Managing PTS Care (In Minutes): 45
--- NOTE | 2023-10-07 17:36 | EKG ---
Test Date: 2023-10-06 Test Time: 14:39:04 Job Trainer: DEVIN MEASUREMENT RESULTS: Intervals: Rate: 62 TN: 184 QRSD: 96 QT: 506 QTc: 513 [place]: P: 75 TN: 184 QRS: -22 T: 83 INTERPRETIVE STATEMENTS: Sinus rhythm with marked sinus arrhythmia Inferior infarct, age undetermined Cannot rule out Anterior infarct, age undetermined Abnormal ECG Compared to ECG 08/09/2023 16:36:18 Myocardial infarct finding now present Sinus bradycardia no longer present Prolonged QT interval no longer present Electronically Signed On 10-07-23 17:33:58 METAL GRADER by Adalberto Cadena
--- NOTE | 2023-10-07 18:40 | CON ---
Date of Consultation: 10/07/2023 Reason For Consultation: Chest pain. History Of Present Illness: A 78-year-old female, history of dyslipidemia, hypertension, diabetes, w ho presented to the emergency room with chest discomfort that is sharp, left-sided, not related to ex ertion and resolve completely and no shortness of breath. No orthopnea. No other complaints. Past Medical History: As outlined above in the HPI. Medications: Refer to reconciliation sheet for detailed list. Allergies: ALLERGY LIST WAS REVIEWED. Family History: No premature coronary artery disease or cancer. Social History: Does not smoke or drink. Does not use any drugs. Review of Systems: All systems reviewed and they were negative except as mentioned in the HPI. Physical Examination: Vital Signs: Reviewed. Head and Neck: Pupils are equal, reactive to light. Intact eye movements. No JVD. No cervical lym phadenopathy. Neck is supple. Thyroid is not enlarged. Lungs: Clear to auscultation bilaterally. No rhonchi, rales, or crackles. No accessory muscle use. Heart: Regular rate and rhythm. No extra sounds. Abdomen: Soft, nontender. Bowel sounds positive. No organomegaly. No masses or hernia. No rigidi ty or rebound. Extremities: No edema, clubbing, cyanosis. Intact pulses. Skin: No rash. Neurologic: Alert, awake, oriented x3. No acute focal deficits appreciated. Investigations: Troponins x3 are negative. BUN 16, creatinine 0.76, hemoglobin 13.7. Assessment/recommendation: 1.Chest pain. It is atypical. Negative cardiac enzymes. The patient can be released and follow up with me as an outpatient. She follows me in the office and she had a stress test and echo recently. I will carry through her management as an outpatient basis. 2.Hypertension. Resume home medications. Adjust therapy for blood pressure to be controlled systol ic less than 140. 3.Diabetes. Sugars being monitored. From cardiac standpoint, the patient can be released and follo w up with me in the office in 1 week. SR/MODL Voice ID: [id number] Report ID: [id number]
--- NOTE | 2023-10-07 18:49 | CON ---
Date of Consultation: 10/07/2023 Reason For Consultation: Chest pain. History Of Present Illness: A 78-year-old female with the. DICTATION ENDS HERE. /YANA Voice ID: [id number] Report ID: [id number]
[2023-10-07] MEDS: HYDRALAZINE HCL 20 MG/ML VIAL IV PRN (20:42)
[2023-10-08] MEDS: HYDRALAZINE HCL 20 MG/ML VIAL IV PRN ×2 (00:21→05:24)
[2023-10-08 05:30] VITALS: TEMP 97.4
--- NOTE | 2023-10-08 08:05 | P.PN ---
Subjective Date of Service: 10/08/23 Chief Complaint: Chest pain rule out acute coronary syndrome Chest pain with as needed analgesics improved, no chest pain radiation - Physical Exam General: Alert, In no apparent distress, Oriented x3 HEENT: Atraumatic, PERRLA, Mucous membr. moist/pink, EOMI, Sclerae nonicteric Neck: Supple, 2+ carotid pulse no bruit, No LAD, Without JVD or thyroid abnormality Respiratory: Clear to auscultation bilaterally, Normal air movement Cardiovascular: Regular rate/rhythm, Normal S1 S2, No murmurs Gastrointestinal: Normal bowel sounds, Soft and benign, Non-distended, No tenderness, No rebound, No guarding Musculoskeletal: No clubbing, No swelling, No tenderness Integumentary: No rashes Neurological: Normal gait, Normal speech, Normal strength at 5/5 x4 extr, Normal tone, Sensation intact, Cranial nerves 3-12 intact, Normal affect Lymphatics: No axilla or inguinal lymphadenopathy Review of Systems prt hpi Physical Examination - Vital Signs Temperature: 97.4 F Blood Pressure: 162/71 Pulse: 78 Respirations: 17 Pulse Ox (%): 95 Assessment And Plan - Plan Assessment and plan chest pain rule out IA Telemetry, trend troponins, Cardiology consult Echocardiogram and stress test per cardiology recommendation -Repeat EKG -Work-up for other etiologies of cardiac chest pain if troponins remain negative -Lipid profile -[place] regarding modifying risk for cardiac disease As needed nitro, metoprolol, hydralazine, aspirin, as needed analgesics O2 2 L keep sats greater than 92% Diabetes mellitus type 2 Accu-Cheks, sliding scale insulin Hypertension Hyperlipidemia Resume appropriate home meds Full code DVT Diet Discharge Plan: Home - Code Status/Comfort Care Code Status: Full Code Time Spent Managing PTS Care (In Minutes): 35
--- NOTE | 2023-10-08 08:13 | P.DS ---
Admission Date: 10/06/23 Discharge Date: 10/08/23 Disposition: ROUTINE DISCHARGE Discharge Condition: GOOD Reason for Admission: Chest pain rule out acute coronary syndrome Consultations: 89-year-old female who presents to the hospital with chest discomfort. Pain was mainly the sternal region. She came to the ER and was given anti-inflammatories and her pain improved. Clinically she is feeling much better. Patient denies any other complaints. Patient denies any shortness of breath. Patient comes into the hospital for further evaluation. Patient was seen by cardiology a few weeks ago. She says she has had multiple diagnostic studies. Will consult cardiology for further review. Patient has a history of COVID-19. She was treated for this a few months ago and she recovered well. Patient is doing well and initial troponin and EKG are unremarkable. Patient will be admitted for observation. General: Alert, In no apparent distress, Oriented x3 HEENT: Atraumatic, PERRLA, Mucous membr. moist/pink, EOMI, Sclerae nonicteric Neck: Supple, 2+ carotid pulse no bruit, No LAD, Without JVD or thyroid abnormality Respiratory: Clear to auscultation bilaterally, Normal air movement Cardiovascular: Regular rate/rhythm, Normal S1 S2, No murmurs Gastrointestinal: Normal bowel sounds, Soft and benign, Non-distended, No tenderness, No rebound, No guarding Musculoskeletal: No clubbing, No swelling, No tenderness Integumentary: No rashes Neurological: Normal gait, Normal speech, Normal strength at 5/5 x4 extr, Normal tone, Sensation intact, Cranial nerves 3-12 intact, Normal affect Lymphatics: No axilla or inguinal lymphadenopathy Hospital Course: 89-year-old female patient presented with chest pain. Chest pain workup was unremarkable, troponins were negative. Was treated with as needed analgesics,'s analytics, p.o. antihypertensives. Condition improved with treatment. Stable for discharge with follow-up appointment with cardiology, primary care physician PROBLEM: Chest pain unspecified GOAL: Clear understanding of disease process INSTRUCTIONS: Physician Discharge Instructions: -DC IV and DC home -Follow-up with PCP in 1 to 2 weeks -Please call Dr. Bullard at [phone] if any questions regarding hospital stay -Please call nursing station at [phone] if any nursing or medication questions -Return to the emergency room if symptoms worsen Diet: ADA, low sodium Activity: Fall precautions DME: Date Ordered: Name of Company: [employer] Services Needed: None independent with ADLs and has no home services. She resides home with her . Home DME includes a cane and walker but the pt states that she does not use an assistive device when ambulating. Confirmed that the pt is not on home O2. No needs identified at this time. Date or Referral: IMMUNIZATION Influenza Vaccine Indicated: Influenza Vaccine Given: Date Given: Pneumonia Vaccine Indicated: Pneumonia Vaccine Given: Date Given: Vital Signs/Physical Exam: Temp Pulse Resp BP Pulse Ox 97.4 F 78 17 162/71 H 95 10/08/23 08:09 10/08/23 08:09 10/08/23 08:09 10/08/23 08:09 10/08/23 08:09 Laboratory Data at Discharge: WBC 8.70 thou/uL (4.3-10.9) 10/06/23 14:13 Hgb 13.7 g/dL (12.0-15.0) 10/06/23 14:13 Hct 41.6 % (36.0-45.0) 10/06/23 14:13 Plt Count 251 thou/uL (152-406) 10/06/23 14:13 Sodium 137 mEq/L (136-145) 10/06/23 14:13 Potassium 3.7 mEq/L (3.5-5.1) 10/06/23 14:13 BUN 16 mg/dL (7-18) 10/06/23 14:13 Creatinine 0.76 mg/dL (0.55-1.02) 10/06/23 14:13 Glucose 169 mg/dL (74-106) H 10/06/23 14:13 Magnesium 1.3 mg/dL (1.6-2.4) L 10/06/23 14:13 Triglycerides 223 mg/dL (<150) H 10/07/23 06:25 Cholesterol 93 mg/dL (<200) 10/07/23 06:25 LDL Cholesterol Direct 24 mg/dL (100-129) L 10/07/23 06:25 HDL Cholesterol 53 mg/dL (40-60) 10/07/23 06:25 Cholesterol/HDL Ratio 1.75 10/07/23 06:25 Home Medications: Aspirin [Aspirin EC 81 MG] 81 mg PO DAILY 11/23/20 Budesonide/Formoterol Fumarate [Symbicort 80-4.5 Mcg Inhaler] 2 puff PO DAILY 11/23/20 Levothyroxine [Synthroid*] 50 mcg PO GSAPD4CV 11/23/20 Losartan/Hydrochlorothiazide [Losartan-Hctz 100-12.5 mg Tab] See Rx Instructions .ROUTE .COMPLEX 11/23/20 Metformin HCl [Metformin HCl ER] 750 mg PO DAILY 11/23/20 Omeprazole 20 mg PO DAILY 11/23/20 Albuterol Sulfate [Proair Digihaler] 2 puff IH Q4HP PRN 01/20/23 Clobetasol Propionate/Emoll [Clobetasol Emollient 0.05% Crm] 1 eliel TP DIRECTED 01/20/23 Colestipol HCl [Colestid] 1 gm PO DAILY 01/20/23 Estradiol [Estrace] 1 eliel VG SEECOM 01/20/23 Fexofenadine/Pseudoephedrine [Bibi-D 24 Hour Tablet] 1 each PO DAILYPRN PRN 01/20/23 Fluticasone [Flonase 50MCG Nasal [place]*] 2 sprays NS DAILY 01/20/23 Ibuprofen/Diphenhydramine HCl [Advil Pm Liqui-Gels] 1 each PO BEDTIME 01/20/23 Magnesium Oxide [Magnesium] 500 mg PO DAILY 01/20/23 Multivitamin/Iron/Folic Acid [Centrum Adults Tablet] 1 each PO DAILY 01/20/23 Nebivolol HCl [Bystolic*] 5 mg PO DAILY 01/20/23 Rosuvastatin Calcium 40 mg PO DAILY 01/20/23 icosapent ethyL [Vascepa 1 gm Cap] 1 gm PO DAILY 01/20/23 Donepezil HCl 5 mg PO DAILY 08/09/23 Vibegron [Gemtesa] 75 mg PO DAILY 08/09/23 Benzonatate [Tessalon Perle*] 200 mg PO TID #30 cap 08/10/23 Ondansetron [Zofran (Odt)*] 4 mg PO Q6H PRN #20 tab 08/10/23 predniSONE [Prednisone] 20 mg PO DAILY #5 tab 08/10/23 Magnesium Chloride [Slow-Mag*] 64 mg PO BID #10 tab 10/07/23 New Medications: Magnesium Chloride [Slow-Mag*] 64 mg PO BID #10 tab Physician Discharge Instructions: -DC IV and DC home -Follow-up with PCP in 1 to 2 weeks -Follow-up with Cardiology in 1 to 2 weeks -Please call Dr. Bullard at [phone] if any questions regarding hospital stay -Please call nursing station at [phone] if any nursing or medication questions -Return to the emergency room if symptoms worsen Diet: ADA Activity: Fall precautions Followup: Tosha Prescott [Primary Care Provider] - Time spent managing pt's care (in minutes): 55
[2023-10-08] MEDS: ASPIRIN EC 81 MG TAB PO SCH (08:29)
[2023-10-08] MEDS: MAGNESIUM CHLORIDE 64 MG TAB PO SCH (08:32)
[2023-10-08] MEDS ORDERED: METOPROLOL TAR 50 MG TAB PO SCH (09:00)
[2023-10-08 09:32] VITALS: O2SAT 91
[2023-10-08 11:12] VITALS: BP 142/67
== END 2023-10-08 10:40 | disposition home or self-care (01) ==
LOC: ER 13:18 → ERHOLD 15:26 → 4TH 18:29
PROVIDERS: ADMIT Hospitalist; ATTEND Hospitalist
DX: R07.9 Chest pain, unspecified (principal); Z86.16 Personal history of COVID-19; Z88.5 Allergy status to narcotic agent; Z88.8 Allergy status to other drugs, medicaments and biological substances; Z88.7 Allergy status to serum and vaccine; E11.9 Type 2 diabetes mellitus without complications; E78.5 Hyperlipidemia, unspecified; I10 Essential (primary) hypertension; Z11.52 Encounter for screening for COVID-19
CPT/HCPCS: 96365; 93005; 85025; 81001; 80048; 36415; 83721; 83735; 80061; 82947 ×5; 84484 ×4; 83880; 87635; 87804 ×2; 71045; 99285; 96366; J3475; J0360 ×4; J2270; G0378 ×5

== ENCOUNTER 2024-02-06 12:14 | Emergency (ER) | payer OTHER ==
[2024-02-06] MEDS ORDERED: TRAMADOL HCL 50 MG TAB ONE (12:48)
--- NOTE | 2024-02-06 13:17 | RAD REPORT ---
EXAM DESCRIPTION: RAD - Foot Right 3 View - 02/06/2024 1:10 pm CLINICAL HISTORY: PAIN COMPARISON: No comparisons FINDINGS: Prominent degenerative arthritic changes are present intertarsal, tarsometatarsal and firs t MTP joint. Large posterior and plantar calcaneal spurs. No acute fracture or dislocation.
--- NOTE | 2024-02-06 13:23 | EDPHYS ---
Physician Documentation [facility] Name: Carlene Padilla Age: 78 yrs Sex: Female : 1945 Arrival Date: 02/06/2024 Time: 12:14 Bed 4 Private MD: ED Physician Ventura Quinonez HPI: 02/05 12:26 This 78 yrs old Female presents to ER via Wheelchair with complaints of Neck Problem, jh7 Foot Pain. 12:26 78-year-old female presents to the ER for right lateral foot pain worsening over the jh7 past 2 weeks. She reports a history of arthritis, diabetes, and hypertension. She denies any injury but reports that it is now difficult to bear weight secondary to the pain. Denies chest pain, shortness of breath, dizziness, numbness/tingling, or any other symptoms at this time.. Historical: - Allergies: 12:25 Codeine; ll1 12:25 Compazine; ll1 12:25 Naprosyn; ll1 12:25 Simbrinza; ll1 - PMHx: 12:25 Asthma; Diabetes - NIDDM; Hypertension; Hyperlipidemia; Thyroid problem; ll1 - PSHx: 12:25 hyst; hysterectomy; ll1 - Immunization history:: Adult Immunizations up to date. - Infectious Disease History:: Denies. - Social history:: Smoking status: Patient denies any tobacco usage or history of. ROS: 12:26 Constitutional: Per HPI jh7 Exam: 12:26 Constitutional: This is a well developed, well nourished patient who is awake, alert, jh7 and in no acute distress. Head/Face: Normocephalic, atraumatic. Eyes: Pupils equal round and reactive to light, extra-ocular motions intact. Lids and lashes normal. Conjunctiva and sclera are non-icteric and not injected. Cornea within normal limits. Periorbital areas with no swelling, redness, or edema. Neck: Trachea midline, no thyromegaly or masses palpated, and no cervical lymphadenopathy. Supple, full range of motion without nuchal rigidity, or vertebral point tenderness. No Meningismus. Cardiovascular: Regular rate and rhythm with a normal S1 and S2. No gallops, murmurs, or rubs. Normal PMI, no JVD. No pulse deficits. Respiratory: Lungs have equal breath sounds bilaterally, clear to auscultation and percussion. No rales, rhonchi or wheezes noted. No increased work of breathing, no retractions or nasal flaring. Abdomen/GI: Soft, non-tender, with normal bowel sounds. No distension or tympany. No guarding or rebound. No evidence of tenderness throughout. Skin: Warm, dry with normal turgor. Normal color with no rashes, no lesions, and no evidence of cellulitis. Neuro: Awake and alert, GCS 15, oriented to person, place, time, and situation. Motor strength 5/5 in all extremities. Sensory grossly intact. 12:26 Musculoskeletal/extremity: Extremities: noted in the Right lateral dorsal aspect of right foot: tenderness, ROM: full active range of motion, in all extremities, Circulation is intact in all extremities. Sensation intact. Weight bearing: can bear weight with assistance only, painful, Vital Signs: 12:26 BP 134 / 75; Pulse 80; Resp 16; Temp 97.6; Pulse Ox 96% on R/A; ll1 MDM: 12:24 Patient medically screened. [facility] 13:20 Differential diagnosis: arthritis, Foot sprain, foot contusion, gout. Data reviewed: [facility] vital signs, nurses notes, radiologic studies, plain films. I considered the following discharge prescriptions or medication management in the emergency department Medications were administered in the Emergency Department. See MAR. Historians other than the Patient: Spouse/Significant Other: . Care significantly affected by the following chronic conditions: Diabetes, Hypertension. Counseling: I had a detailed discussion with the patient and/or guardian regarding the historical points, exam findings, and any diagnostic results supporting the discharge/admit diagnosis, to return to the emergency department if symptoms worsen or persist or if there are any questions or concerns that arise at home. Response to treatment: the patient's symptoms have mildly improved after treatment. 02/05 12:36 Order name: XRAY Foot RIGHT 3 View; Complete Time: 13:18 [facility] Administered Medications: 13:00 Drug: traMADol PO 50 mg PO once Route: PO; Disposition Summary: 02/06/24 13:22 Discharge Ordered Notes: Location: Home [facility] Problem: new [facility] Symptoms: have improved [facility] Condition: Stable [facility] Diagnosis - Osteoarthritis of right foot 7 - Pain in right foot [facility] Followup: [facility] - With: Private Physician - When: 2 - 3 days - Reason: Recheck today's complaints Discharge Instructions: - Discharge Summary Sheet [facility] - Arthritis [facility] - Foot Pain [facility] Forms: - Medication Reconciliation Form [facility] - Prescription Opioid Use [facility] - Patient Portal Instructions [facility] - Leadership Thank You Letter [facility] Prescriptions: - Tramadol 50 mg Oral Tablet - take 1 tablet ORAL route every 8 hours as needed; 12 tablet; Refills: 0, jh7 Product Selection Permitted Signatures: Dispatcher [employer] Enedina Spicer, BRODERICK VILLAFANA iw Mirtha Alarcon RN RN ll1 Dalia Mayer, PUBLIC HEALTH TECHNOLOGIST PUBLIC HEALTH TECHNOLOGIST [facility]
--- NOTE | 2024-02-06 13:23 | ER ---
Nurse's Notes [facility] Name: Carlene Padilla Age: 78 yrs Sex: Female : 1945 Arrival Date: 02/06/2024 Time: 12:14 Bed 4 Private MD: Diagnosis: Osteoarthritis of right foot;Pain in right foot Presentation: 02/05 12:26 Chief complaint: Patient states: R foot pain for 2 weeks, getting worse each day. Old ll1 tramadol isn't helping. R side of neck hurting also. Coronavirus screen: Client denies travel out of the [place] in the last 14 days. At this time, the client does not indicate any symptoms associated with coronavirus-19. Ebola Screen: Patient denies travel to an Ebola-affected area in the 21 days before illness onset. Initial Sepsis Screen: Does the patient meet any 2 criteria? No. Patient's initial sepsis screen is negative. Does the patient have a suspected source of infection? No. Patient's initial sepsis screen is negative. Risk Assessment: Do you want to hurt yourself or someone else? Patient reports no desire to harm self or others. Onset of symptoms was January 23, 2024. 12:26 Method Of Arrival: Wheelchair ll1 12:26 Acuity: ZOHRA 3 ll1 Triage Assessment: 12:26 General: Appears uncomfortable, Behavior is calm, cooperative, appropriate for age. ll1 Pain: Complains of pain in right foot Quality of pain is described as aching, throbbing. Musculoskeletal: Reports pain in right foot. Historical: - Allergies: 12:25 Codeine; ll1 12:25 Compazine; ll1 12:25 Naprosyn; ll1 12:25 Simbrinza; ll1 - PMHx: 12:25 Asthma; Diabetes - NIDDM; Hypertension; Hyperlipidemia; Thyroid problem; ll1 - PSHx: 12:25 hyst; hysterectomy; ll1 - Immunization history:: Adult Immunizations up to date. - Infectious Disease History:: Denies. - Social history:: Smoking status: Patient denies any tobacco usage or history of. Screenin:04 [facility] ED Fall Risk Assessment (Adult) Score/Fall Risk Level 0 - 2 = Low Risk. Abuse iw screen: Denies threats or abuse. Nutritional screening: No deficits noted. Tuberculosis screening: No symptoms or risk factors identified. Assessment: 12:47 Reassessment: Patient and/or family updated on plan of care and expected duration. Pain hb level reassessed. 13:03 General: Appears in no apparent distress. Behavior is calm, appropriate for age. Pain: iw Complains of pain in right foot. Neuro: Level of Consciousness is awake, alert, obeys commands, Oriented to person, place, time, situation, Moves all extremities. Full function. Cardiovascular: Patient's skin is warm and dry. Respiratory: Respiratory effort is even, unlabored, Respiratory pattern is regular. GI:. Derm: Skin is healthy with good turgor. Musculoskeletal: Range of motion: intact in all extremities, Reports pain in right foot. Vital Signs: 12:26 BP 134 / 75; Pulse 80; Resp 16; Temp 97.6; Pulse Ox 96% on R/A; ll1 ED Course: 12:17 Patient arrived in ED. ts1 12:24 [facility] 7 12:24 Ventura Quinonez MD is Attending Physician. 7 12:28 Triage completed. ll1 12:28 Arm band placed on. 1 12:42 Enmanuel Canela, BRODERICK is Primary Nurse. as6 12:47 Patient placed in an exam room, on a stretcher. hb 13:05 No provider procedures requiring assistance completed. Patient did not have IV access iw during this emergency room visit. 13:11 XRAY Foot RIGHT 3 View In Process Unspecified. EDMS Administered Medications: 13:00 Drug: traMADol PO 50 mg PO once Route: PO; iw Medication: 13:05 VIS not applicable for this client. iw Outcome: 13:22 Discharge ordered by . [facility] 13:48 Patient left the ED. iw Signatures: Dispatcher [employer] EDMS Enedina Kirkland RN RN Liz Villanueva RN RN Mirtha Alarcon RN RN [facility] Enmanuel Canela RN RN [facility] Dalia Mayer FNP [place] [id number] Tiara Rowe PAS PAS ts1
[2024-02-06 14:08] VITALS: BP 134/75; TEMP 97.6; O2SAT 96
== END 2024-02-06 13:48 | disposition home or self-care (01) ==
LOC: ER 12:14
DX: M19.071 Primary osteoarthritis, right ankle and foot (principal); Z88.1 Allergy status to other antibiotic agents; Z88.5 Allergy status to narcotic agent; Z88.8 Allergy status to other drugs, medicaments and biological substances
CPT/HCPCS: 99282

== ENCOUNTER 2024-07-23 15:35 | Emergency (ER) | payer OTHER ==
[2024-07-23] MEDS ORDERED: FAMOTIDINE 20 MG/2 ML VIAL IV ONE (15:56)
[2024-07-23] MEDS ORDERED: ASPIRIN 81 MG CHEWABLE TABLET ONE (15:56)
[2024-07-23] MEDS ORDERED: NA CHLORIDE 0.9% 1,000 ML ONE (15:56)
[2024-07-23 16:06] LABS: Absolute Basophils 0.1 K/uL (0-0.5); Absolute Eosinophils 0.2 K/uL (0-0.5); Absolute Lymphocytes (CBC) 2.8 K/uL (0.7-4.9); Absolute Monocytes 0.7 K/uL (0.1-1.3); Absolute Neutrophil 6.3 K/uL (1.8-8.0); Basophils % 0.7 % (0-1.3); Eosinophils % 1.8 % (0-4.4); Hematocrit 41.4 % (36.0-45.0); Hemoglobin 13.2 g/dL (12.0-15.0); Lymphocytes % 28.1 % (15.3-44.8); MCH 28.9 pg (27.0-35.0); MCHC 31.8 g/dL (32.0-36.0); MPV 8.4 fL (7.6-11.3); Monocytes % 6.8 % (3.3-12.3); Neutrophils % 62.6 % (41.7-73.7); Platelets 260 thou/uL (152-406); RBC Red Blood Cell Count 4.56 M/uL (3.86-4.86); Red Cell Distribution Width 16.2 % (12.1-15.2)
[2024-07-23 16:18] LABS: PT Prothrombin Time 10.9 SECONDS (9.4-12.5); PTT, Activated Partial Thromb 32.1 SECONDS (24.3-36.9); Protime INR 0.97
[2024-07-23] MEDS ORDERED: HEPARIN 5000 UNIT/ML 1 ML VIAL ONE (16:21)
[2024-07-23] MEDS ORDERED: HEPARIN/D5W 25,000 UNIT/500 ML BAG IV ONE (16:22)
[2024-07-23 16:53] LABS: Anion Gap 14.1 mEq/L (5.0-15.0); Potassium 4.1 mEq/L (3.5-5.1); Troponin High Sensitivity 4.4 pg/mL (<58.9)
--- NOTE | 2024-07-23 17:00 | ER ---
Nurse's Notes [facility] Name: Carlene Padilla Age: 78 yrs Sex: Female : 1945 Arrival Date: 07/23/2024 Time: 15:35 Bed 16 Private MD: Diagnosis: Chest pain, unspecified;Essential (primary) hypertension;Unspecified kidney failure-INSUFFICENCY;Unstable angina;Abnormal electrocardiogram [ECG] [EKG] Presentation: 07/23 15:36 Acuity: ZOHRA 2 aa5 15:36 Onset of symptoms was June 2024. aa5 15:36 Chief complaint: Patient states: chest tightness that began after "walking to the [facility] mailbox". Pt appears SOB during triage. 15:36 Coronavirus screen: shortness of breath. Ebola Screen: Patient denies travel to an [facility] Ebola-affected area in the 21 days before illness onset. Initial Sepsis Screen: Does the patient meet any 2 criteria? RR > 20 per min. Does the patient have a suspected source of infection? No. Patient's initial sepsis screen is negative. Risk Assessment: Do you want to hurt yourself or someone else? Patient reports no desire to harm self or others. 15:36 Method Of Arrival: Wheelchair aa5 Triage Assessment: 15:36 General: Appears uncomfortable, Behavior is cooperative. Pain: Complains of pain in aa5 chest. Cardiovascular: Reports chest pain. Respiratory: Airway is patent Respiratory effort is even, labored, Respiratory pattern is tachypnea. Derm: Skin is pink, warm \\T\\ dry. Historical: - Allergies: 15:48 Codeine; aa5 15:48 codeine sulfate; aa5 15:48 Compazine; aa5 15:48 Naprosyn; aa5 15:48 Simbrinza; aa5 - PMHx: 15:48 Asthma; Diabetes - NIDDM; Hyperlipidemia; Hypertension; Thyroid problem; aa5 - PSHx: 15:48 hysterectomy; aa5 - Immunization history:: Adult Immunizations up to date. - Infectious Disease History:: Denies. - Family history:: not pertinent. - Social history:: Smoking status: Patient denies any tobacco usage or history of. Screenin:40 [facility] ED Fall Risk Assessment (Adult) History of falling in the last 3 months, ko1 including since admission No falls in past 3 months (0 pts) Confusion or Disorientation No (0 pts) Intoxicated or Sedated No (0 pts) Impaired Gait No (0 pts) Mobility Assist Device Used No (0 pt) Altered Elimination No (0 pt) Score/Fall Risk Level 0 - 2 = Low Risk Oriented to surroundings, Maintained a safe environment, Educated pt \\T\\ family on fall prevention, incl call for assistance when getting out of bed, Assessed \\T\\ reinforced patient's understanding of fall precautions, Provided non-skid footwear, Hourly rounding (assess needs \\T\\ fall precautionary measures) done. Abuse screen: Denies threats or abuse. Denies injuries from another. Nutritional screening: No deficits noted. Tuberculosis screening: No symptoms or risk factors identified. Assessment: 16:00 General: Appears distressed, uncomfortable, Behavior is cooperative, appropriate for ko1 age. Pain: Complains of pain in chest Pain does not radiate. Pain began suddenly. Neuro: No deficits noted. Cardiovascular: Reports chest pain. Respiratory: No deficits noted. GI: No deficits noted. : No deficits noted. EENT: No deficits noted. Derm: Skin is pale. Musculoskeletal: No deficits noted. Vital Signs: 15:36 BP 155 / 78; Pulse 69; Resp 25 S; Temp 97.8(TE); Pulse Ox 97% on R/A; aa5 16:15 Weight 66.13 kg; ko1 16:15 BP 118 / 87; Pulse 66; Resp 14; Pulse Ox 98% on R/A; ko1 16:40 BP 152 / 78; Pulse 64; Resp 15; Pulse Ox 99% ; Pain 0/10; ko1 17:00 BP 113 / 71; Pulse 64; Resp 16; Pulse Ox 95% ; ko1 17:30 BP 142 / 73; Pulse 63; Resp 15; Pulse Ox 95% ; ko1 18:00 BP 146 / 97; Pulse 69; Resp 16; Pulse Ox 95% ; ko1 16:40 Pain Scale: Adult ko1 ED Course: 15:35 Patient arrived in ED. ra3 15:36 Arm band placed on Patient placed in an exam room, on a stretcher. aa5 15:38 Belinda North, BRODERICK is Primary Nurse. ko1 15:46 Triage completed. me1 15:50 Glenn Mccallum MD is Attending Physician. edgard 15:52 Inserted saline lock: 20 gauge in left forearm, using aseptic technique. Blood ss collected. Flushed with 10 mL NS. 15:54 Basic Metabolic Panel Sent. ko1 15:54 CBC with Diff Sent. ko1 15:54 Troponin HS Sent. ko1 15:54 Magnesium Sent. ko1 15:54 BNP Sent. ko1 15:54 Ptt, Activated Sent. ko1 15:54 PT-INR Sent. ko1 15:54 Lipid Profile Sent. ko1 15:54 Lipase Sent. ko1 15:55 Initial lab(s) drawn, by ED staff, sent to lab. EKG done, by ED staff, reviewed by nikhil Mccallum MD. 16:17 Chest Single View XRAY In Process Unspecified. EDMS 16:40 Patient has correct armband on for positive identification. Allergy band placed. Fall ko1 risk band placed. Placed in gown. Bed in low position. Call light in reach. Side rails up X2. Provided Education on: labs, tests, meds. Client placed on continuous cardiac and pulse oximetry monitoring. NIBP monitoring applied. phototypesetting equipment monitor on. Door closed. Noise minimized. Lights dimmed. Warm blanket given. Pillow given. 16:40 Patient maintains SpO2 saturation greater than 95% on room air. ko1 17:03 initiated a transfer with Leann Iraheta from the [facility] Transfer [facility]/. eb 17:[address] Garces the hospitalist suction dredge dumping supervisor for [facility] with Dr. Mccallum for eb patient transfer consultation. 17:44 administrative approval given by Leann Iraheta Rn/ Dr. Talya Garces has accepted the patient in transfer/ patient has been accepted [facility] [id number] / report to be called to [phone]. 18:00 No provider procedures requiring assistance completed. Patient transferred, IV remains ko1 in place. 18:07 EKG done, by ED staff, reviewed by Glenn Mccallum MD. em1 18:12 Troponin HS Sent. ko1 18:36 [facility] to transfer pt, called Michelle \\T\\[id number], ETA 15min. eb Administered Medications: 15:59 Drug: NS 0.9% IV 1000 ml IV at 125 ml/hr continuous Route: IV; Rate: 125 ml/hr; Site: ko left forearm; 19:09 Follow up: Response: No adverse reaction; IV Status: Infusion continued upon transfer ko1 16:03 Drug: Famotidine IVP 20 mg IVP once; dilute with 10 mL 0.9% NaCl; give over 2 minutes ko1 Route: IVP; Site: left forearm; 16:18 Follow up: Response: No adverse reaction ko1 16:03 Drug: Aspirin PO Chewable Tablet 324 mg PO once; 81 mg tablets x 4 Route: PO; ko1 16:33 Follow up: Response: No adverse reaction ko1 16:34 Drug: Heparin (SD-Bolus No thrombolytic) - HEParin IVP 60 units/kg IVP once; Max 5000 ko1 units {Co-Signature: spring (Dotty Caruso RN).} Route: IVP; Site: left forearm; 16:49 Follow up: Response: No adverse reaction ko1 16:35 Drug: Heparin (SD Drip) 12 units/kg/hr - ([place] [address] units, D5W IV 500 ml) IV at ko1 calculated rate Per protocol; Max initial rate 1000 units/hr {Co-Signature: spring (Dotty Caruso RN).} Route: IV; Rate: calculated rate; Site: left forearm; 19:09 Follow up: Response: No adverse reaction; IV Status: Infusion continued upon transfer ko1 17:21 Drug: Clopidogrel PO 300 mg PO once Route: PO; ko1 17:56 Follow up: Response: No adverse reaction ko1 Medication: 18:00 VIS not applicable for this client. ko1 Outcome: 17:00 ER care complete, transfer ordered by MD. rene 18:00 Condition: stable ko1 18:00 Instructed on the need for transfer, 19:09 Patient left the ED. ko1 Signatures: Dispatcher [employer] Glenn Soares MD MD cha Martinez, Eric em1 Autumn Navas RN RN aa5 Leonarda Aguilar RN RN ss Botello, Elizabeth eb Oliver, Kathy, RN RN ko1 Dotty Caruso, RN RN me1 Marisa Garay ra3 Dotty Caruso RN me1 Corrections: (The following items were deleted from the chart) 15:48 15:46 Acuity: ZOHRA 2 me1 aa5 15:49 15:48 PSHx: hyst; aa5 aa5
--- NOTE | 2024-07-23 17:00 | EDPHYS ---
Physician Documentation [facility] Name: Carlene Padilla Age: 78 yrs Sex: Female : 1945 Arrival Date: 07/23/2024 Time: 15:35 Bed 16 Private MD: ED Physician Glenn Mccallum HPI: 07/23 16:24 This 78 yrs old Female presents to ER via Wheelchair with complaints of Chest edgard Pain. 16:24 The patient or guardian reports chest pain that is located primarily in the substernal edgard area. Onset: just prior to arrival. The pain does not radiate. Associated signs and symptoms: Pertinent positives: shortness of breath. The chest pain is described as a heaviness, causing indigestion, a pressure. Duration: The patient or guardian reports a single episode, that is now resolved. Modifying factors: The symptoms are alleviated by remaining still. Severity of pain: At its worst the pain was moderate in the emergency department the pain has improved moderately. The patient has not experienced similar symptoms in the past. Historical: - Allergies: 15:48 Codeine; aa5 15:48 codeine sulfate; aa5 15:48 Compazine; aa5 15:48 Naprosyn; aa5 15:48 Simbrinza; aa5 - PMHx: 15:48 Asthma; Diabetes - NIDDM; Hyperlipidemia; Hypertension; Thyroid problem; aa5 - PSHx: 15:48 hysterectomy; aa5 - Immunization history:: Adult Immunizations up to date. - Infectious Disease History:: Denies. - Family history:: not pertinent. - Social history:: Smoking status: Patient denies any tobacco usage or history of. ROS: 16:24 Constitutional: Negative for fever, chills, and weight loss, Eyes: Negative for injury, edgard pain, redness, and discharge, ENT: Negative for injury, pain, and discharge, Neck: Negative for injury, pain, and swelling, Abdomen/GI: Negative for abdominal pain, nausea, vomiting, diarrhea, and constipation, Back: Negative for injury and pain, : Negative for injury, bleeding, discharge, and swelling, MS/Extremity: Negative for injury and deformity, Skin: Negative for injury, rash, and discoloration, Neuro: Negative for headache, weakness, numbness, tingling, and seizure, Psych: Negative for depression, anxiety, suicide ideation, homicidal ideation, and hallucinations, Allergy/Immunology: Negative for hives, rash, and allergies, Endocrine: Negative for neck swelling, polydipsia, polyuria, polyphagia, and marked weight changes, Hematologic/Lymphatic: Negative for swollen nodes, abnormal bleeding, and unusual bruising, 16:24 Cardiovascular: Positive for chest pain, with cough, 16:24 Respiratory: Positive for shortness of breath, Exam: 16:24 Constitutional: This is a well developed, well nourished patient who is awake, alert, edgard and in no acute distress. Head/Face: Normocephalic, atraumatic. Eyes: Pupils equal round and reactive to light, extra-ocular motions intact. Lids and lashes normal. Conjunctiva and sclera are non-icteric and not injected. Cornea within normal limits. Periorbital areas with no swelling, redness, or edema. ENT: Nares patent. No nasal discharge, no septal abnormalities noted. Tympanic membranes are normal and external auditory canals are clear. Oropharynx with no redness, swelling, or masses, exudates, or evidence of obstruction, uvula midline. Mucous membranes moist. Neck: Trachea midline, no thyromegaly or masses palpated, and no cervical lymphadenopathy. Supple, full range of motion without nuchal rigidity, or vertebral point tenderness. No Meningismus. Chest/axilla: Normal chest wall appearance and motion. Nontender with no deformity. No lesions are appreciated. Cardiovascular: Regular rate and rhythm with a normal S1 and S2. No gallops, murmurs, or rubs. Normal PMI, no JVD. No pulse deficits. Respiratory: Lungs have equal breath sounds bilaterally, clear to auscultation and percussion. No rales, rhonchi or wheezes noted. No increased work of breathing, no retractions or nasal flaring. Abdomen/GI: Soft, non-tender, with normal bowel sounds. No distension or tympany. No guarding or rebound. No evidence of tenderness throughout. Back: No spinal tenderness. No costovertebral tenderness. Full range of motion. Female : Normal external genitalia. Skin: Warm, dry with normal turgor. Normal color with no rashes, no lesions, and no evidence of cellulitis. MS/ Extremity: Pulses equal, no cyanosis. Neurovascular intact. Full, normal range of motion. Neuro: Awake and alert, GCS 15, oriented to person, place, time, and situation. Cranial nerves II-XII grossly intact. Motor strength 5/5 in all extremities. Sensory grossly intact. Cerebellar exam normal. Normal gait. Psych: Awake, alert, with orientation to person, place and time. Behavior, mood, and affect are within normal limits. 16:24 Musculoskeletal/extremity: DVT Exam: No signs of deep vein thrombosis. no pain, no swelling, no tenderness, negative Homans' sign noted on exam, no appreciated bluish discoloration, no erythema, no increased warmth, 16:28 ECG was reviewed by the Attending Physician. [facility] 18:15 ECG was reviewed by the Attending Physician. [facility] Vital Signs: 15:36 BP 155 / 78; Pulse 69; Resp 25 S; Temp 97.8(TE); Pulse Ox 97% on R/A; aa5 16:15 Weight 66.13 kg; ko1 16:15 BP 118 / 87; Pulse 66; Resp 14; Pulse Ox 98% on R/A; ko1 16:40 BP 152 / 78; Pulse 64; Resp 15; Pulse Ox 99% ; Pain 0/10; ko1 17:00 BP 113 / 71; Pulse 64; Resp 16; Pulse Ox 95% ; ko1 17:30 BP 142 / 73; Pulse 63; Resp 15; Pulse Ox 95% ; ko1 18:00 BP 146 / 97; Pulse 69; Resp 16; Pulse Ox 95% ; ko1 16:40 Pain Scale: Adult ko1 MDM: 15:50 Medical Screening Exam initiated [facility] 16:26 Differential diagnosis: abnormal EKG, acute myocardial infarction, acute pericarditis, edgard anxiety, coronary artery disease chest wall pain, congestive heart failure Cholelithiasis costochondritis, esophagitis, gastritis, herpes zoster, hiatal hernia, pancreatitis, peptic ulcer disease, pericarditis, pleurisy, pneumonia, pneumothorax, pulmonary embolus, stable angina, thoracic aortic disection, unstable angina. HEART Score: History: Moderately Suspicious (1), ECG: Non specific repolarization disturbance / LBTB / PM (1), Age: > or = 65 years (2), Risk Factors: > or = 3 Risk factors for atherosclerotic disease (2), [Hypercholesterolemia] [Hypertension] [DM] [+ Family HX]. The patient was given aspirin in the Emergency Department. AGUSTIN Risk Score: 1 - patient's age is greater or equal to 65 years, 1 - Three or more CAD risk factors, 1- Known CAD, 1 - Recent [<24hrs] Severe Angina, TOTAL SCORE = 4. Data reviewed: vital signs, nurses notes, lab test result(s), EKG, radiologic studies, plain films. Consideration of Admission/Observation Escalation of care including admission/observation considered. I considered the following discharge prescriptions or medication management in the emergency department Medications were administered in the Emergency Department. See MAR. Independent interpretation of the following test(s) in the Emergency Department EKG: See my EKG interpretation above. Historians other than the Patient: Spouse/Significant Other: SPOUSE WELL INFORMED. 07/23 15:46 Order name: Basic Metabolic Panel; Complete Time: 16:56 [facility] 07/23 15:46 Order name: CBC with Diff; Complete Time: 16:31 [facility] 07/23 15:46 Order name: Troponin HS; Complete Time: 16:56 [facility] 07/23 15:52 Order name: Lipase; Complete Time: 16:31 [facility] 07/23 15:52 Order name: Lipid Profile; Complete Time: 16:31 [facility] 07/23 15:52 Order name: PT-INR; Complete Time: 16:31 [facility] 07/23 15:52 Order name: Ptt, Activated; Complete Time: 16:31 [facility] 07/23 15:52 Order name: BNP; Complete Time: 16:31 [facility] 07/23 15:52 Order name: Magnesium; Complete Time: 16:31 [facility] 07/23 17:37 Order name: Troponin HS; Complete Time: 18:46 [facility] 07/23 15:53 Order name: Chest Single View XRAY; Complete Time: 17:14 [facility] 07/23 17:37 Order name: EKG; Complete Time: 17:37 [facility] 07/23 15:46 Order name: Cardiac monitoring; Complete Time: 15:47 [facility] 07/23 15:46 Order name: EKG - Nurse/Tech; Complete Time: 15:51 [facility] 07/23 15:46 Order name: IV Saline Lock; Complete Time: 15:47 [facility] 07/23 15:46 Order name: Labs collected and sent; Complete Time: 15:51 [facility] 07/23 15:46 Order name: O2 Per Protocol; Complete Time: 15:47 [facility] 07/23 15:46 Order name: O2 Sat Monitoring; Complete Time: 15:47 [facility] 07/23 17:37 Order name: EKG - Nurse/Tech; Complete Time: 18:07 edgard EC:28 Rate is 65 beats/min. Rhythm is regular. ND interval is normal. QRS interval is normal. edgard QT interval is prolonged at 520 msec. No Q waves. T waves are Normal. No ST changes noted. Clinical impression: NSR w/ Non-specific ST/T Changes. Interpreted by me. Reviewed by me. 18:15 Rate is 65 beats/min. Rhythm is regular. QRS Holden is Normal. ND interval is prolonged edgard at 210 msec. QRS interval is normal. QT interval is normal. No Q waves. T waves are Normal. No ST changes noted. Clinical impression: NSR w/ Non-specific ST/T Changes and 1st degree heart block. Interpreted by me. Reviewed by me. Administered Medications: 15:59 Drug: NS 0.9% IV 1000 ml IV at 125 ml/hr continuous Route: IV; Rate: 125 ml/hr; Site: ko1 left forearm; 19:09 Follow up: Response: No adverse reaction; IV Status: Infusion continued upon transfer ko1 16:03 Drug: Famotidine IVP 20 mg IVP once; dilute with 10 mL 0.9% NaCl; give over 2 minutes ko1 Route: IVP; Site: left forearm; 16:18 Follow up: Response: No adverse reaction [facility] 16:03 Drug: Aspirin PO Chewable Tablet 324 mg PO once; 81 mg tablets x 4 Route: PO; ko1 16:33 Follow up: Response: No adverse reaction [facility] 16:34 Drug: Heparin (ME-Bolus No thrombolytic) - HEParin IVP 60 units/kg IVP once; Max 5000 ko1 units {Co-Signature: 1 (Dotty Caruso RN).} Route: IVP; Site: left forearm; 16:49 Follow up: Response: No adverse reaction [facility] 16:35 Drug: Heparin (ME Drip) 12 units/kg/hr - ([place] [address] units, D5W IV 500 ml) IV at ko1 calculated rate Per protocol; Max initial rate 1000 units/hr {Co-Signature: 1 (Dotty Caruso RN).} Route: IV; Rate: calculated rate; Site: left forearm; 19:09 Follow up: Response: No adverse reaction; IV Status: Infusion continued upon transfer ko1 17:21 Drug: Clopidogrel PO 300 mg PO once Route: PO; ko1 17:56 Follow up: Response: No adverse reaction ko1 Disposition Summary: 07/23/24 17:00 Transfer Ordered Notes: Transfer Location: [facility] edgard Reason: Higher level of care edgard Condition: Fair edgard Problem: new edgard Symptoms: have improved edgard Accepting Physician: TO [facility](07/23/24 19:09) ko1 Diagnosis - Chest pain, unspecified edgard - Essential (primary) hypertension edgard - Unspecified kidney failure - INSUFFICENCY edgard - Unstable angina edgard - Abnormal electrocardiogram [ECG] [EKG] edgard Forms: - Medication Reconciliation Form edgard - SBAR form edgard Signatures: Dispatcher [employer] EDGlenn Bellamy MD MD cha Calderon, Audri, RN RN aa5 Belinda North RN RN ko1 Dotty Caruso RN RN me1 Dotty Caruso RN me1 Corrections: (The following items were deleted from the chart) 15:47 15:47 BASIC METABOLIC PANEL+C.LAB.BRZ ordered. EDMS EDMS 15:47 15:47 CBC+H.LAB.BRZ ordered. EDMS EDMS 15:47 15:47 Troponin High Sensitivity+C.LAB.BRZ ordered. EDMS EDMS 15:47 15:47 Chest Single View+RAD.RAD.BRZ ordered. EDMS EDMS 15:49 15:48 PSHx: hyst; aa5 aa5 19:09 17:00 TO [facility] edgard ko1
--- NOTE | 2024-07-23 17:02 | RAD REPORT ---
EXAMINATION: ONE VIEW CHEST XR CLINICAL INDICATION: Female, 78 years old.,CHEST PAIN TECHNIQUE: Frontal chest projection is submitted. Examination is limited by patient positioning and t echnique. COMPARISON: 10/06/2023 FINDINGS: The lungs are well inflated and clear. No pneumothorax or sizable effusion. The heart is normal in s ize. IMPRESSION: No acute intrathoracic abnormalities.
[2024-07-23] MEDS ORDERED: CLOPIDOGREL 75 MG TABLET ONE (17:20)
[2024-07-24 06:19] VITALS: TEMP 97.8
[2024-07-24 06:32] VITALS: O2SAT 95
[2024-07-24 06:34] VITALS: BP 146/97
--- NOTE | 2024-07-24 15:03 | EKG ---
Test Date: 2024-07-23 Test Time: 18:03:58 Tomato Grader: OLEG MEASUREMENT RESULTS: Intervals: Rate: 65 MO: 210 QRSD: 90 QT: 440 QTc: 457 [place]: P: 62 MO: 210 QRS: -19 T: 41 INTERPRETIVE STATEMENTS: Sinus rhythm with sinus arrhythmia with 1st degree AV block Inferior infarct, age undetermined Abnormal ECG Compared to ECG 07/23/2024 15:44:59 First degree AV block now present Prolonged QT interval no longer present Myocardial infarct finding still present Electronically Signed On 07-24-24 15:02:18 CDT by Asif Espinoza
--- NOTE | 2024-07-24 15:03 | EKG ---
Test Date: 2024-07-23 Test Time: 15:44:59 Change Lead: ANAYA MEASUREMENT RESULTS: Intervals: Rate: 65 MD: 196 QRSD: 90 QT: 500 QTc: 520 [place]: P: 67 MD: 196 QRS: -12 T: 52 INTERPRETIVE STATEMENTS: Sinus rhythm with marked sinus arrhythmia Inferior infarct, age undetermined Prolonged QT Abnormal ECG Compared to ECG 10/07/2023 02:33:34 Atrial premature complex(es) no longer present Left-axis deviation no longer present Myocardial infarct finding still present Electronically Signed On 07-24-24 15:02:34 CDT by Asif Espinoza
== END 2024-07-23 19:09 | disposition short-term general hospital (02) ==
LOC: ER 15:35
DX: R07.9 Chest pain, unspecified (principal); I10 Essential (primary) hypertension; I20.0 Unstable angina; R94.31 Abnormal electrocardiogram [ECG] [EKG]; N28.9 Disorder of kidney and ureter, unspecified; E11.9 Type 2 diabetes mellitus without complications
CPT/HCPCS: 96365; 96361; 93005 ×2; 85025; 80048; 36415; 83735; 85610; 80061; 85730; 84484 ×2; 83690; 83880; 71045; 96375; 99285; 96366; J1644; J7030

== ENCOUNTER 2024-09-22 15:05 | Emergency (ER) | payer OTHER ==
--- NOTE | 2024-09-22 16:12 | EDPHYS ---
Physician Documentation [facility] Name: Carlene Padilla Age: 78 yrs Sex: Female : 1945 Arrival Date: 09/22/2024 Time: 15:05 Bed 10 Private MD: ED Physician Ventura Quinonez HPI: 09/22 16:14 This 78 yrs old Female presents to ER via Ambulatory with complaints of Spider bite on ec2 left arm. 16:14 Patient arrives today due to concern for lesion on the left arm. Believes that she was ec2 bitten by a spider. No fevers or chills, no nausea or vomiting. She reports that she is been having some drainage from the wound.. Historical: - Allergies: 15:50 Codeine; cm10 15:50 Compazine; cm10 15:50 Naprosyn; cm10 15:50 Simbrinza; cm10 15:50 codeine sulfate; cm10 - PMHx: 15:50 Asthma; Diabetes - NIDDM; Hyperlipidemia; Hypertension; Thyroid problem; cm10 - PSHx: 15:50 hysterectomy; cm10 - Immunization history:: Adult Immunizations up to date. - Infectious Disease History:: Denies. - Social history:: Smoking status: unknown. ROS: 16:14 Constitutional: as per hpi ec2 Exam: 16:14 Constitutional: GEN: NAD Head: atraumatic Eyes: EOMI Ears: External ears are ec2 normal. CV: regular rate LUNGS: no respiratory distress ABD: non-distended SKIN: Small fluctuant mass on the left lateral forearm proximal, surrounding erythema. MSK: no evidence of trauma Vital Signs: 15:48 BP 96 / 66; Pulse 84; Resp 16; Temp 97.4; Pulse Ox 91% on R/A; Weight 63.5 kg; Height 5 cm10 ft. 2 in. ; Pain 0/10; 16:30 BP 110 / 65; Pulse 80; Resp 17; Pulse Ox 95% on R/A; rs5 15:48 Body Mass Index 25.61 (63.50 kg, 157.48 cm) cm10 15:48 Pain Scale: Adult cm10 Procedures: 16:15 I \T\ D: Incision and drainage was performed for an abscess of the left Prepped with ec2 alcohol, Incised with #11 blade. Drained small amount bloody fluid. Dressing: sterile 4x4 gauze. MDM: 15:57 Medical Screening Exam initiated ec2 16:14 Data reviewed: vital signs, nurses notes. ED course: Patient arrives today for ec2 evaluation of a skin lesion. Examination yields skin findings as above. I performed bedside incision and drainage, questionable scant purulence, bloody discharge noted. Will discharge home, start the patient with antibiotics. Differential diagnosis considered abscess, cellulitis. Initially considered other skin processes such as cancer, mass.. Administered Medications: 16:00 Drug: Trimethoprim-Sulfamethoxazole PO (160 mg-800 mg (DS) 1 tablet PO once Route: PO; rs5 16:33 Follow up: Response: No adverse reaction rs5 Disposition Summary: 09/22/24 16:11 Discharge Ordered Notes: Location: Home ec2 Condition: Stable ec2 Diagnosis - Cellulitis of left upper limb ec2 Followup: ec2 - With: Private Physician - When: - Reason: Re-evaluation by your physician Discharge Instructions: - Discharge Summary Sheet ec2 - Cellulitis, Adult ec2 Forms: - Medication Reconciliation Form ec2 - Antibiotic Education ec2 - Prescription Opioid Use ec2 - Patient Portal Instructions ec2 - Leadership Thank You Letter ec2 Prescriptions: - Bactrim DS 800-160 mg Oral Tablet - take 1 tablet ORAL route every 12 hours for 7 days; 14 tablet; Refills: 0, ec2 Product Selection Permitted Signatures: Nahun Daniel RN RN rs5 Shannan Campos RN RN cm10 Ventura Quinonez MD MD ec2
--- NOTE | 2024-09-22 16:12 | ER ---
Nurse's Notes [facility] Name: Carlene Padilla Age: 78 yrs Sex: Female : 1945 Arrival Date: 09/22/2024 Time: 15:05 Bed 10 Private MD: Diagnosis: Cellulitis of left upper limb Presentation: 09/22 15:48 Chief complaint: Patient states: Spider bite to left arm onset 1 week ago. pt states cm10 that she did not see the spider bite. pt has noted redness and swelling. Coronavirus screen: Client denies travel out of the [place] in the last 14 days. Ebola Screen: Patient denies travel to an Ebola-affected area in the 21 days before illness onset. No symptoms or risks identified at this time. Initial Sepsis Screen: Does the patient meet any 2 criteria? No. Patient's initial sepsis screen is negative. Does the patient have a suspected source of infection? No. Patient's initial sepsis screen is negative. Risk Assessment: Do you want to hurt yourself or someone else? Patient reports no desire to harm self or others. Onset of symptoms was September 15, 2024. 15:48 Method Of Arrival: Ambulatory cm10 15:48 Acuity: ZOHRA 4 cm10 Triage Assessment: 15:51 General: Appears in no apparent distress. comfortable, Behavior is calm, cooperative, cm10 appropriate for age. Neuro: No deficits noted. Level of Consciousness is awake, alert, obeys commands, Oriented to person, place, time, situation, Appropriate for age. Respiratory: No deficits noted. Airway is patent Respiratory effort is even, unlabored, Respiratory pattern is regular, symmetrical. 15:53 Derm: Abscess located on palmar aspect of left forearm. cm10 Historical: - Allergies: 15:50 Codeine; cm10 15:50 Compazine; cm10 15:50 Naprosyn; cm10 15:50 Simbrinza; cm10 15:50 codeine sulfate; cm10 - PMHx: 15:50 Asthma; Diabetes - NIDDM; Hyperlipidemia; Hypertension; Thyroid problem; cm10 - PSHx: 15:50 hysterectomy; cm10 - Immunization history:: Adult Immunizations up to date. - Infectious Disease History:: Denies. - Social history:: Smoking status: unknown. Screenin:55 [facility] ED Fall Risk Assessment (Adult) History of falling in the last 3 months, rs5 including since admission No falls in past 3 months (0 pts) Confusion or Disorientation No (0 pts) Intoxicated or Sedated No (0 pts) Impaired Gait No (0 pts) Mobility Assist Device Used No (0 pt) Altered Elimination No (0 pt) Score/Fall Risk Level 0 - 2 = Low Risk Oriented to surroundings, Maintained a safe environment. 15:55 Abuse screen: Denies threats or abuse. Nutritional screening: No deficits noted. rs5 Tuberculosis screening: No symptoms or risk factors identified. Assessment: 15:55 General: Appears in no apparent distress. comfortable, Behavior is calm, cooperative. rs5 Pain: Complains of pain in left forearm Pain currently is 3 out of 10 on a pain scale. Quality of pain is described as aching, Is continuous. Neuro: Level of Consciousness is awake, alert, obeys commands, Oriented to person, place, time, situation. Cardiovascular: Patient's skin is warm and dry. Respiratory: Airway is patent Respiratory effort is even, unlabored, Respiratory pattern is regular, symmetrical. GI: Abdomen is round non-distended, Abd is soft and non tender X 4 quads. : No signs and/or symptoms were reported regarding the genitourinary system. EENT: No signs and/or symptoms were reported regarding the EENT system. Derm: Skin is intact, Skin is pink, warm \T\ dry. red raised bump noticed on left forearm. Musculoskeletal: Range of motion: intact in all extremities. 16:33 Reassessment: Patient and/or family updated on plan of care and expected duration. Pain rs5 level reassessed. Patient is alert, oriented x 3, equal unlabored respirations, skin warm/dry/pink. Vital Signs: 15:48 BP 96 / 66; Pulse 84; Resp 16; Temp 97.4; Pulse Ox 91% on R/A; Weight 63.5 kg; Height 5 cm10 ft. 2 in. ; Pain 0/10; 16:30 BP 110 / 65; Pulse 80; Resp 17; Pulse Ox 95% on R/A; rs5 15:48 Body Mass Index 25.61 (63.50 kg, 157.48 cm) cm10 15:48 Pain Scale: Adult cm10 ED Course: 15:08 Patient arrived in ED. ra3 15:12 Ventura Quinonez MD is Attending Physician. ec2 15:50 Triage completed. cm10 15:51 Arm band placed on left wrist. cm10 15:55 Patient has correct armband on for positive identification. Placed in gown. Bed in low rs5 position. Call light in reach. Side rails up X2. 15:55 No provider procedures requiring assistance completed. rs5 15:56 Nahun Daniel, RN is Primary Nurse. rs5 16:30 Patient did not have IV access during this emergency room visit. rs5 16:35 Provided Education on: discharge instructions . rs5 Administered Medications: 16:00 Drug: Trimethoprim-Sulfamethoxazole PO (160 mg-800 mg (DS) 1 tablet PO once Route: PO; rs5 16:33 Follow up: Response: No adverse reaction rs5 Medication: 16:00 VIS not applicable for this client. rs5 Outcome: 16:11 Discharge ordered by . ec2 16:35 Patient left the ED. rs5 16:35 Discharged to home ambulatory, rs5 16:35 Condition: stable rs5 16:35 Discharge instructions given to patient, family, Instructed on discharge instructions, follow up and referral plans. medication usage, Demonstrated understanding of instructions, follow-up care, medications, Prescriptions given X 1, Signatures: Nahun Daniel, BRODERICK RN rs5 Shannan Campos RN RN cm10 Ventura Quinonez MD MD ec2 Marisa Garay ra3
[2024-09-22] MEDS ORDERED: SULFAMETH/TRIMETHOPRIM 200 MG/5 ML UDBOT ONE (16:24)
[2024-09-22 16:42] VITALS: BP 96/66; TEMP 97.4; O2SAT 91
== END 2024-09-22 16:35 | disposition home or self-care (01) ==
LOC: ER 15:05
PROC: 0H9CXZZ Drainage of Left Upper Arm Skin, External Approach (ICD-10-PCS; principal; 2024-09-22)
DX: L03.114 Cellulitis of left upper limb (principal)
CPT/HCPCS: 99283